=== PATIENT | female | born 1940 | race African-American/Black ===

== ENCOUNTER → 2016-09-13 | Outpatient (CLI) | payer MEDICARE ==
[2016-09-13 08:25] LABS: CH 27.2; CHCM 30.7; HCT 42.5 % (34.0-46.0); HGB 13.5 gm/dL (11.4-16.0); Hypochromasia Slight; MCH 28.3 pg (25.0-35.0); MCHC 31.8 g/dL (31.0-37.0); Mean Platelet Volume 7.7; RBC 4.78 m/uL (3.80-5.40); RDW 13.9 % (11.5-15.5); WBC 4.5 k/uL (3.8-10.6)
[2016-09-13 08:47] LABS: ALT 22 U/L (9-52); AST 27 U/L (14-36); Alkaline Phosphatase 92 U/L (38-126); Anion Gap 9 mmol/L; Blood Urea Nitrogen 18 mg/dL (7-17); Calcium 9.4 mg/dL (8.4-10.2); Carbon Dioxide 25 mmol/L (22-30); Chloride 107 mmol/L (98-107); Cholesterol 229 mg/dL (<200); Glucose 93 mg/dL (74-99); HDL Cholesterol 61 mg/dL (40-60); Non-African American GFR(MDRD) 59 (>60 ml/min/1.73 sqM); Potassium 3.8 mmol/L (3.5-5.1); Sodium 141 mmol/L (137-145); Total Bilirubin 0.6 mg/dL (0.2-1.3); Total Protein 7.3 g/dL (6.3-8.2); Triglycerides 80 mg/dL (<150)
[2016-09-13 08:53] LABS: Appearance,Urine Cloudy (Clear); Bacteria,Urine Rare /hpf; Bilirubin,Urine Negative (Negative); Glucose,Urine (UA) Negative (Negative); Ketones,Urine Negative (Negative); Leukocyte Esterase,Urine Moderate (Negative); Mucus,Urine Rare /hpf; Nitrite,Urine Negative (Negative); PH, Urine 5.5 (5.0-8.0); Particle Count 3563; Protein,Urine Negative (Negative); RBC,Urine 2 /hpf (0-5); Specific Gravity,Urine 1.015 (1.001-1.035); Squamous Epithelial Cell,Urine 4 /hpf (0-4); UA Billing (MACRO vs. MICRO) MICRO; Urobilinogen,Urine <2.0 mg/dL (<2.0); WBC,Urine 5 /hpf (0-5)
[2016-09-13 11:33] LABS: Hemoglobin A1C 5.8 % (4.2-6.1)
== END | disposition home or self-care (01) ==
LOC: LABWHC1 07:49
PROVIDERS: ATTEND Family Medicine
DX: Z00.01 Encounter for general adult medical examination with abnormal findings (principal)
CPT/HCPCS: 36415; 80053; 80061; 81001; 82306; 83036; 84443; 85027

== ENCOUNTER → 2016-09-13 | Outpatient (CLI) | payer MEDICARE ==
--- NOTE | 2016-09-14 07:59 | MM ---
Reason for exam: screening (asymptomatic). Last mammogram was performed 1 year and 8 months ago. History: Patient is postmenopausal and had first child at age 36. Excisional biopsy of the right breast, 1979. Took estrogen beginning at age 49. Physical Findings: A clinical breast exam by your physician is recommended on an annual basis and results should be correlated with mammographic findings. MG Screening Mammo w CAD Bilateral CC and MLO view(s) were taken. Prior study comparison: January 23, 2015, bilateral MG screening mammo w CAD. April 30, 2010, bilateral digital screening mammo w/CAD. There are scattered fibroglandular densities. Finding: There are stable grouped/clustered calcifications in the left breast. There is a chronic nodularity in the right breast. No significant changes in finding since January 23, 2015 and April 30, 2010. ASSESSMENT: Benign, BI-RAD 2 RECOMMENDATION: Routine screening mammogram of both breasts in 1 year.
== END | disposition home or self-care (01) ==
LOC: RADMAMWWP 07:23
PROVIDERS: ATTEND Family Medicine
DX: Z12.31 Encounter for screening mammogram for malignant neoplasm of breast (principal)

== ENCOUNTER → 2016-11-10 | Outpatient (CLI) | payer MEDICARE ==
--- NOTE | 2016-11-10 10:31 | US ---
EXAMINATION TYPE: US liver DATE OF EXAM: 11/10/2016 COMPARISON: 04/12/14 CLINICAL HISTORY: K76.89 DISEASE OF LIVER. EXAM MEASUREMENTS: Liver Length: 13.9 cm Gallbladder Wall: Surgically absent CBD: 0.6 cm Right Kidney: 9.2 x 4.5 x 4.5cm Large body habitus. Pancreas: partially obscured by bowel gas, portions visualized wnl Liver: Innumerable cysts, largest in left lobe measuring 5.3 x 4.3 x 6.0cm (previously measuring 5.0 x 4.1 x 5.4 cm), largest in right measuring 2.0 x2.4 x 2.7cm (previously measuring 2.2 x 1.6 x 2.5 c m), increased attenuation, decreased visualization of vessels suggestive of fatty infiltrate. Gallbladder: Surgically absent Evidence for sonographic Ortega's sign: No CBD: wnl Right Kidney: cyst measuring 3.1 x 2.6 x 2.6cm (previously measuring 2.3 cm). IMPRESSION: 1. Similar size of multiple hepatic cysts and a slightly enlarged solitary right renal cyst
== END | disposition home or self-care (01) ==
LOC: RADUSWWP 09:39
PROVIDERS: ATTEND Family Medicine
DX: K76.89 Other specified diseases of liver (principal); N28.1 Cyst of kidney, acquired
CPT/HCPCS: 76705

== ENCOUNTER → 2017-02-15 | Outpatient (CLI) | payer MEDICARE ==
[2017-02-15 10:50] LABS: Blood Urea Nitrogen 21 mg/dL (7-17); Non-African American GFR(MDRD) 58 (>60 ml/min/1.73 sqM)
--- NOTE | 2017-02-15 14:04 | CT ---
EXAMINATION TYPE: CT abdomen pelvis w con DATE OF EXAM: 02/15/2017 COMPARISON: 01/18/2013 HISTORY: 76-year-old female with pain, evaluate for diverticulitis TECHNIQUE: Contiguous axial scanning of the abdomen and pelvis following administration of 100 ml Omn ipaque 300 IV contrast. Delayed images through the kidneys and coronal/sagittal reconstructions perf ormed. CT DLP: 1524.80 mGycm Automated exposure control for dose reduction was used. FINDINGS: The heart is normal size without pericardial effusion. Tiny hiatal hernia. Lung bases clear without p leural effusion. Numerous hepatic cysts are redemonstrated, largest in the left hepatic lobe measuring 6.0 cm. This is increased in size from 4.5 cm in 2013. Other cysts have also fluctuated, some have decreased in size . Portal venous system is patent. Cholecystectomy clips are present. No biliary ductal dilatation. Adrenal glands, spleen, and pancreas appear within normal limits. A posterior right renal cyst is increased in size now measuring 3.2 cm versus 1.9 cm in 2013. There i s a new subcentimeter cortical hypodensity at the right upper pole and centrally in the left upper po le. A left lower pole renal cyst has increased in size now measuring 2.2 cm versus 5 mm, previously. Symmetric uptake and excretion of contrast from both kidneys. No dilated small bowel, free fluid, or free air. Normal appendix. Redemonstrated right lower quadrant anterior abdominal wall defect with herniated omental fat trackin g between the layers of the external and internal oblique measuring 2.5 cm thick, 7.4 cm wide, and 9. 2 cm craniocaudal. The abdominal wall defect itself measures 1.7 cm wide. This may be very minimally larger in the interval. Oral contrast has progressed to the mid sigmoid. There are a few short segments annular thickening an d narrowing which persist on the delayed kidney images, for example, axial image 43, 36, 31, 26, and 20 suspected to represent prominent areas of peristaltic contractions. Bladder is urine distended and has some mass effect displacing the distal sigmoid towards the left. U terus surgically absent. Neither ovary is visualized. Bones: Mild degenerative changes at the hips. Stable sclerotic bone island left acetabulum. Degenerat josiah changes lower lumbar spine with grade 1 anterolisthesis at L4-L5 and L5-S1. Hemangioma involving T9 vertebral body. There is asymmetric degenerative bony ankylosis of the L5-S1 facet joints. IMPRESSION: 1. MULTIPLE SHORT SEGMENTS OF ANNULAR THICKENING THROUGHOUT THE COLON PERSIST ON THE DELAYED KIDNEY I MAGES. AREAS OF SPASM OR PROMINENT PERISTALTIC CONTRACTIONS ARE SUGGESTED GIVEN THE MULTIPLICITY. COR RELATE WITH FINDINGS ON ROUTINE SCREENING COLONOSCOPY. 2. NO ACUTE INFLAMMATORY PROCESS IDENTIFIED IN THE ABDOMEN OR PELVIS. 3. NUMEROUS HEPATIC CYSTS WHICH SHOW FLUCTUATION IN SIZE, MANY OF WHICH HAVE INCREASED IN SIZE NOW ME ASURING UP TO 6.0 CM. 4. THERE ARE A FEW RENAL CYSTS WELL, A COUPLE SMALL CYSTS ARE NEW AND THE LARGEST HAS INCREASED IN SIZE NOW MEASURING UP TO 3.2 CM VERSUS 1.9 CM, PREVIOUSLY. 5. REDEMONSTRATED LARGE FAT-CONTAINING RIGHT LOWER QUADRANT ANTERIOR ABDOMINAL WALL HERNIA WHICH EXTE NDS BETWEEN THE PLANES OF THE EXTERNAL AND INTERNAL OBLIQUE.
== END | disposition home or self-care (01) ==
LOC: RADCTMAIN 10:05
PROVIDERS: ATTEND Surgery Plastic and Reconstructive Surgery
DX: K63.89 Other specified diseases of intestine (principal); K76.89 Other specified diseases of liver; N28.1 Cyst of kidney, acquired; K43.9 Ventral hernia without obstruction or gangrene
CPT/HCPCS: 82565; 84520; 74177; 36415; Q9967

== ENCOUNTER → 2017-04-04 | Outpatient (CLI) | payer MEDICARE | END | disposition home or self-care (01) | LOC: LABPAT 09:59 | PROVIDERS: ATTEND Surgery Plastic and Reconstructive Surgery | DX: Z01.818 Encounter for other preprocedural examination (principal); Z01.812 Encounter for preprocedural laboratory examination | CPT/HCPCS: 36415; 84132; 93005 ==

== ENCOUNTER 2017-04-08 05:58 | Day surgery (SDC) | payer MEDICARE ==
[2017-04-01 09:12] VITALS: BMI 29.2
[~2017-04-08 05:58] MED LIST: DEXAMETHASONE SOD PHOSPHATE 10 MG/ML 1 ML VIAL IV ONE; HEPARIN SODIUM,PORCINE 5,000 UNIT/ML 1 ML VIAL SQ ONE; LACTATED RINGERS 1,000 ML IV SCH; MORPHINE SULFATE 4 MG/ML SYRINGE IV PRN; ONDANSETRON 4 MG/2 ML VIAL IVP ONE; ceFAZolin IN SWFI 2 GM/20 ML SYRINGE IVP ONE
--- NOTE | 2017-04-08 06:16 | P.GSHP ---
History of Present Illness H&P Date: 04/08/17 CHIEF COMPLAINT: Ventral hernia. HISTORY OF PRESENT ILLNESS: The patient is a 76-year-old female who presents with a history of swelling along the lower abdomen. Findings were consistent with ventral hernia. Now she presents for further evaluation and management. PAST MEDICAL HISTORY: Please see list. PAST SURGICAL HISTORY: Please see list. MEDICATIONS: Please see list. ALLERGIES: Please see list. SOCIAL HISTORY: No illicit drug use FAMILY HISTORY: No reports of Crohn disease or ulcerative colitis. REVIEW OF ORGAN SYSTEMS: CONSTITUTIONAL: No reports of fevers or chills. GI: Denies any blood in stools or constipation. PHYSICAL EXAM: VITAL SIGNS: Stable GENERAL: Well-developed pleasant female in no acute distress. HEENT: No scleral icterus. Extraocular movements grossly intact. Moist buccal mucosa. NECK: Supple without lymphadenopathy. CHEST: Unlabored respirations. Equal bilateral excursions. CARDIOVASCULAR: Regular rate and rhythm. Distal 2+ pulses. ABDOMEN: Soft, nondistended. Palpable defect of the right lower abdomen. MUSCULOSKELETAL: No clubbing, cyanosis, or edema. ASSESSMENT: 1. Ventral hernia. PLAN: 1. Recommend proceeding with a robotic ventral hernia repair with mesh. 2. Benefits and risks of surgical intervention was discussed including possibility of open technique. 3. May need overnight observation. 4. DVT prophylaxis. Past Medical History Past Medical History: GERD/Reflux, Hyperlipidemia, Hypertension, Liver Disease Additional Past Medical History / Comment(s): cysts on liver, History of Any Multi-Drug Resistant Organisms: None Reported Past Surgical History: Cholecystectomy, Hernia Repair, Hysterectomy, Orthopedic Surgery Additional Past Surgical History / Comment(s): rotator cuff left shoulder, hernia repair-RIGHT INGUINAL HERNIA Past Anesthesia/Blood Transfusion Reactions: No Reported Reaction Smoking Status: Former smoker - Past Family History Mother Family Medical History: No Reported History Medications and Allergies Home Medications Medication Instructions Recorded Confirmed Type Irbesartan/Hydrochlorothiazide 1 each PO DAILY 08/08/14 04/01/17 History [Avalide 150-12.5 mg Tablet] amLODIPine [Norvasc] 10 mg PO DAILY 08/08/14 04/01/17 History Multivitamins, Thera [Multivitamin 1 tab PO DAILY 04/01/17 04/01/17 History (formulary)] Allergies Allergy/AdvReac Type Severity Reaction Status Date / Time aspirin Allergy Nausea & Verified 04/01/17 08:04 Vomiting atorvastatin [From Lipitor] Allergy MUSCLE PAIN Verified 04/01/17 08:06
[2017-04-08 06:45] LABS: HCT 39.8 % (34.0-46.0); HGB 12.4 gm/dL (11.4-16.0); Hypochromasia Slight; MCH 27.1 pg (25.0-35.0); MCHC 31.1 g/dL (31.0-37.0); MCV 87.3 fL (80.0-100.0); Mean Platelet Volume 8.6; Platelet Count 171 k/uL (150-450); RBC 4.56 m/uL (3.80-5.40); RDW 14.4 % (11.5-15.5); WBC 4.3 k/uL (3.8-10.6)
[2017-04-08] MEDS ORDERED: LIDOCAINE 1% 20 ML VIAL (10MG/ML) FOR IV START INTRADERMA ONE (06:45)
[2017-04-08 07:01] LABS: ALT 38 U/L (9-52); AST 23 U/L (14-36); Albumin 3.6 g/dL (3.5-5.0); Alkaline Phosphatase 91 U/L (38-126); Anion Gap 7 mmol/L; Blood Urea Nitrogen 22 mg/dL (7-17); Calcium 9.9 mg/dL (8.4-10.2); Carbon Dioxide 28 mmol/L (22-30); Chloride 107 mmol/L (98-107); Glucose 105 mg/dL (74-99); Potassium 3.4 mmol/L (3.5-5.1); Sodium 142 mmol/L (137-145); Total Bilirubin 0.5 mg/dL (0.2-1.3); Total Protein 6.6 g/dL (6.3-8.2)
[2017-04-08] MEDS ORDERED: GLYCOPYRROLATE 0.2 MG/ML 2 ML VIAL ONE (07:29)
[2017-04-08] MEDS ORDERED: SUCCINYLCHOLINE CHLORIDE 100 MG/5 ML SYR IV ONE (07:29)
[2017-04-08] MEDS ORDERED: NEOSTIGMINE 1 MG/ML 10 ML VIAL ONE (07:29)
[2017-04-08] MEDS ORDERED: fentaNYL (PF) 50 MCG/ML 2 ML AMP ONE (07:29)
[2017-04-08] MEDS ORDERED: MIDAZOLAM 2 MG/2 ML VIAL ONE (07:29)
[2017-04-08] MEDS ORDERED: PROPOFOL 10 MG/ML 20 ML VIAL IV ONE (07:29)
[2017-04-08] MEDS ORDERED: LIDOCAINE 2%-EPI 1:100,000 20 ML VIAL ONE (07:29)
[2017-04-08] MEDS ORDERED: LIDOCAINE 1% INJ 10MG/ML (20 ML MDV) ONE (07:29)
[2017-04-08] MEDS ORDERED: ROCURONIUM BROMIDE 10 MG/ML 10 ML VIAL IV ONE (07:29)
[2017-04-08] MEDS ORDERED: ROPIVACAINE 5 MG/ML 30 ML VIAL ONE (07:29)
[2017-04-08] MEDS ORDERED: POTASSIUM CHLORIDE 20 MEQ in SODIUM CHLORIDE 0.9% 100 ML IVPB STA (07:46)
[2017-04-08] MEDS ORDERED: BUPIVACAINE (PF) 0.25% 30 ML VIAL SQ ONE (07:56)
[2017-04-08] MEDS ORDERED: LACTATED RINGERS 1,000 ML IV ONE (09:42)
[2017-04-08 10:18] VITALS: TEMP 98
[2017-04-08] MEDS: HYDROmorphone 0.5 MG/0.5 ML SYRINGE IVP PRN ×3 (10:22→10:35)
[2017-04-08 10:32] VITALS: RESP 16
--- NOTE | 2017-04-08 10:39 | P.PCN ---
Date of Procedure: 04/08/17 Preoperative Diagnosis: Right lower abdominal swelling, right lower abdominal pain, previous history of right ventral hernia repair Postoperative Diagnosis: Recurrent right ventral/spigaliean hernia incarceration, abdominal wall lipoma over 6 cm Procedure(s) Performed: Robotic-assisted repair of right lower quadrant incarcerated spigelian hernia, removal of 6 cm intra-abdominal and abdominal wall lipoma 6 cm Anesthesia: GETA, local Surgeon: Nasra Pepper Estimated Blood Loss (ml): 5 Pathology: other (Abdominal wall lipoma) Condition: stable Disposition: same day Operative Findings: Abdominal wall recurrent ventral hernia involving the right lower quadrant, removal of abdominal wall lipoma 6 cm involving the fascia
--- NOTE | 2017-04-08 11:25 | P.ONQ ---
Anesthesiology Proc Note - PNB - Peripheral Nerve Block Performed Left Other (see comment) Single Time Out Performed: Yes ([id number]) Procedure Start Time: 10:41 (Bilateral Rectus Abdominis Sheath Block) Procedure Stop Time: 10:58 Indication: Acute Post-Operative Pain, Requested by physician Sedation Type: Sedate with meaningful contact maintained Preparation: Sterile Prep Position: Supine Catheter: None Needle Types: Facet Needle Size: 50mm (2") Needle Gauge: 21 Technique: Ultrasound Injectate: 2.0% Lidocaine (see comment for volume) (20 mls Ropivacaine + 20 mls Lidocaine) Blood Aspirated: No Pain Paresthesia on Injection Noted: No Resistance on Injection: Normal Events: Uneventful and Well Tolerated
[2017-04-08] MEDS ORDERED: HYDROcodone/APAP 5-325MG 1 EACH TAB PO ONE (14:59)
[2017-04-08 16:07] VITALS: BP 130/72; PULSE 91
--- NOTE | 2017-05-15 21:53 | P.OP ---
Date of Procedure: 04/08/17 Description of Procedure: SURGEON: NELI PEPPER MD ASSISTANTS: 1. DEEJAY SCHULTZ PREOPERATIVE DIAGNOSES: 1. Right lower quadrant abdominal pain. 2. Previous history of right ventral incisional hernia repair. 3. Hypertensive heart disease without cardiomyopathy. 4. Gastroesophageal reflux disease. 5. Hyperlipidemia. 6. Right lower abdominal swelling. POSTOPERATIVE DIAGNOSES: 1. Right lower quadrant abdominal pain. 2. Previous history of right inguinal hernia repair. 3. Hypertensive heart disease without cardiomyopathy. 4. Gastroesophageal reflux disease. 5. Hyperlipidemia. 6. Abdominal wall intramuscular/fascial lipoma, 6 cm 7. Recurrent right lower quadrant ventral/spigaliean hernia, incarcerated. OPERATION: 1. Robotic-assisted da Anna Xi laparoscopic reduction and repair of right lower quadrant incarcerated spigelian hernia without mesh. 2. Robotic-assisted da Anna Xi laparoscopic excision removal of 6 cm intra- muscular abdominal wall lipoma 6 cm ANESTHESIA: General with local anesthetic ESTIMATED BLOOD LOSS: 5 mL. SPECIMENS REMOVED: other (Abdominal wall lipoma) COMPLICATIONS: None. Condition: stable Disposition: same day INDICATIONS: The patient is a 76-year-old female who presents with history of right groin swelling. Now presents for definitive surgical intervention. Laparoscopic versus open and robotic approaches were discussed. Benefits and risks including bleeding, infection, and injury to the vas deferens as well as sterility and chronic groin pain were reviewed. Placement of mesh was also described. Informed consent was obtained. DESCRIPTION: In the preoperative area, the patient was marked with indelible marker along the right lower abdomen. The patient was brought to the operating room and initially laid in supine position. The abdomen had been prepped and draped in standard sterile fashion. Ioban draping was also placed. Alonso catheter was placed. Prior to incision, a timeout protocol was confirmed with surgical team regarding patient's name including procedures to be performed and location along the right lower abdomen. Initial positioning for the robotic assisted ports were selected whereby 20 cm superior to the target anatomy, 0 degree 5 mm laparoscopic trocar entry was performed at the left upper quadrant. The abdomen was insufflated to 15 mmHg which she had tolerated well. Additionally, 3 cm defect along the right lower abdomen was found. Next, along the epigastrium, 8 mm robot trocar was placed. An 8-mm robotic trocar was placed under direct visualization at the right upper quadrant. The 5 mm port was exchanged for an 8 mm trocar. All trocars were positioned 8 to 10-cm apart from each other. The The [employer] XI robot was primed, draped, prepared for docking along the left side of the patient. I then went to the [employer] Xi console. The study assistant was at bedside for exchange of the robot arms and equipment. At the right lower abdominal wall, a 3 cm spigelian hernia incarcerated with a lipoma was identified. The hernia sac was evaginated whereby the peritoneum was scored using Endo scissors with cautery. Within the depth of the hernia sac, a 6 cm intramuscular abdominal wall lipoma was resected. Once completely reduced into the abdominal cavity, the peritoneal sac of the hernia was stripped and a lipoma of the right lower quadrant was reduced. The sac was resected and then passed off for further pathological analysis. The size of the hernia defect was 3 cm with intraoperative films obtained. Using 0-VLOC, the muscular and fascial defect was closed and imbricated at least in 2 layers. The peritoneum was also reapproximated in a running suture using 2-0 VLOC. The entire defect was well reapproximated and mesh placement was avoided. The robot was undocked from the patient's bedside. I then rescrubbed into the case. The 6-cm abdominal wall lipoma was extracted using an Endo Catch bag of the left upper quadrant. The fascia was widened to allow removal of the specimen. The fascial defect was reapproximated using 0-Vicryl and a Manohar Jazlyn along the left upper quadrant Insufflation was released from the abdominal cavity and all instruments were removed from the abdominal cavity. The rest of incisions were reapproximated using 4-0 Monocryl in a running subcuticular fashion. Local anesthetic was placed along the incision. Incisions were cleansed using dilute hydrogen peroxide. Dermabond was applied to the skin. At the end of the procedure, the needle, sponge and instrument counts had been verified correct by the graphic arts technician. The patient had tolerated the procedure well and was taken to the postanesthesia care unit in stable condition. FINDINGS: 1. Abdominal wall recurrent ventral hernia involving the right lower quadrant 2. Removal of abdominal wall lipoma 6 cm involving the fascia Plan - Discharge Summary New Discharge Prescriptions: New HYDROcodone/APAP 5-325MG [Pisek 5-325] 1 tab PO Q6HR PRN #20 tab PRN Reason: Pain Continue amLODIPine [Norvasc] 10 mg PO DAILY Irbesartan/Hydrochlorothiazide [Avalide 150-12.5 mg Tablet] 1 tab PO DAILY No Action Multivit-Min/FA/Lycopen/Lutein [Centrum Silver Tablet] 1 tab PO DAILY Discharge Medication List Irbesartan/Hydrochlorothiazide [Avalide 150-12.5 mg Tablet] 1 tab PO DAILY 08/08 [History] amLODIPine [Norvasc] 10 mg PO DAILY 08/08/14 [History] HYDROcodone/APAP 5-325MG [Pisek 5-325] 1 tab PO Q6HR PRN #20 tab 04/08/17 [Rx] Multivit-Min/FA/Lycopen/Lutein [Centrum Silver Tablet] 1 tab PO DAILY 04/21/17 [ History] Follow up Appointment(s)/Referral(s): Neli Pepper MD [STAFF PHYSICIAN] - 04/19/17 3:00 pm Patient Instructions/Handouts: *Surgery [facility] - (Anesthesia) Discharge Instructions Outpatient Surgery, Laparoscopic Herniorrhaphy (DC) Activity/Diet/Wound Care/Special Instructions: May shower. No lifting over 4 pounds in 4 weeks. No bath tub soaks. Discharge Disposition: HOME SELF-CARE
== END 2017-04-08 16:55 | disposition home or self-care (01) ==
LOC: OR 05:58
PROVIDERS: ATTEND Surgery Plastic and Reconstructive Surgery
DX: K43.0 Incisional hernia with obstruction, without gangrene (principal); D17.1 Benign lipomatous neoplasm of skin and subcutaneous tissue of trunk; K21.9 Gastro-esophageal reflux disease without esophagitis; E78.5 Hyperlipidemia, unspecified; I10 Essential (primary) hypertension; K76.89 Other specified diseases of liver; Z87.891 Personal history of nicotine dependence; Z88.6 Allergy status to analgesic agent; Z79.899 Other long term (current) drug therapy; Z88.8 Allergy status to other drugs, medicaments and biological substances
CPT/HCPCS: 49653 ×2; 88304; 80053; 85027; 22903; C1781; J2250; J1644; J1100; J2710; J0690; J2405; J2001; J3010; J2795; J0330; J2704; J1170

== ENCOUNTER 2017-04-21 10:25 | Emergency (ER) | payer MEDICARE ==
[2017-04-21] MEDS ORDERED: SODIUM CHLORIDE 0.9% 1,000 ML IV STA (11:04)
--- NOTE | 2017-04-21 11:08 | ED ---
General Adult HPI - General Chief complaint: Weakness Stated complaint: Weakness Time Seen by Provider: 04/21/17 10:30 Source: patient, family, RN notes reviewed Mode of arrival: wheelchair Limitations: no limitations - History of Present Illness Initial comments: This is a 76-year-old female who presents emergency department after having surgery 2 weeks ago to remove a lipoma. Patient states her abdomen has been slowly improving. However she comes in today because she's been feeling weaker and lightheaded and has lost her appetite over the last 2 days. Patient denies any fever chills or cough. Patient denies any nausea vomiting or diarrhea. Patient denies any headache patient denies numbness or focal weakness. Patient denies any dysuria hematuria urinary frequency. Patient denies any recent injury or trauma. - Related Data Home Medications Medication Instructions Recorded Confirmed Irbesartan/Hydrochlorothiazide 1 tab PO DAILY 08/08/14 04/21/17 [Avalide 150-12.5 mg Tablet] amLODIPine [Norvasc] 10 mg PO DAILY 08/08/14 04/21/17 Multivit-Min/FA/Lycopen/Lutein 1 tab PO DAILY 04/21/17 04/21/17 [Centrum Silver Tablet] Previous Rx's Medication Instructions Recorded HYDROcodone/APAP 5-325MG [[place] 1 tab PO Q6HR PRN #20 tab 04/08/17 5-325] Allergies Allergy/AdvReac Type Severity Reaction Status Date / Time aspirin AdvReac Nausea & Verified 04/21/17 11:17 Vomiting atorvastatin [From Lipitor] AdvReac MUSCLE PAIN Verified 04/21/17 11:17 Review of Systems ROS Statement: Those systems with pertinent positive or pertinent negative responses have been documented in the HPI. ROS Other: All systems not noted in ROS Statement are negative. Past Medical History Past Medical History: GERD/Reflux, Hyperlipidemia, Hypertension, Liver Disease Additional Past Medical History / Comment(s): cysts on liver, History of Any Multi-Drug Resistant Organisms: None Reported Past Surgical History: Cholecystectomy, Hernia Repair, Hysterectomy, Orthopedic Surgery Additional Past Surgical History / Comment(s): rotator cuff left shoulder, hernia repair-RIGHT INGUINAL HERNIA , lypoma removal Past Anesthesia/Blood Transfusion Reactions: No Reported Reaction Past Psychological History: No Psychological Hx Reported Smoking Status: Former smoker Past Alcohol Use History: None Reported Past Drug Use History: None Reported - Past Family History Mother Family Medical History: No Reported History General Exam - General Exam Comments Initial Comments: GENERAL: Patient is well-developed and well-nourished. Patient is nontoxic and well- hydrated and is in no acute distress. ENT: Neck is soft and supple. No significant lymphadenopathy is noted. Oropharynx is clear. Moist mucous membranes. Neck has full range of motion without eliciting any pain. EYES: The sclera were anicteric and conjunctiva were pink and moist. Extraocular movements were intact and pupils were equal round and reactive to light. Eyelids were unremarkable. PULMONARY: Unlabored respirations. Good breath sounds bilaterally. No audible rales rhonchi or wheezing was noted. CARDIOVASCULAR: There is a regular rate and rhythm without any murmurs gallops or rubs. ABDOMEN: Left upper quadrant is tender at one of the incision sites patient states this is been slowly improving but is still quite tender to touch. No palpable organomegaly was noted. There is no palpable pulsatile mass. SKIN: Skin is clear with no lesions or rashes and otherwise unremarkable. NEUROLOGIC: Patient is alert and oriented x3. Cranial nerves II through XII are grossly intact. Motor and sensory are also intact. Normal speech, volume and content. Symmetrical smile. MUSCULOSKELETAL: Normal extremities with adequate strength and full range of motion. No lower extremity swelling or edema. No calf tenderness. LYMPHATICS: No significant lymphadenopathy is noted PSYCHIATRIC: Normal psychiatric evaluation. Normal interpersonal interactions appears functionally intact in deals appropriately with others. No signs of depression. No signs of anxiety. Limitations: no limitations Course Vital Signs 04/21/17 04/21/17 10:30 12:28 Temperature 98 F Pulse Rate 97 87 Respiratory 17 18 Rate Blood Pressure 132/58 147/79 O2 Sat by Pulse 100 100 Oximetry Medical Decision Making - Medical Decision Making EKG shows normal sinus rhythm at 81 bpm [place] interval is 148 QRS is 70 QT interval 382 QTC is 443. Patient's EKG shows no ST segment elevation or depression or T wave abnormalities are noted. Chest x-ray shows no acute abnormality. Patient's opacification the posterior aspect of the lateral chest x-ray is believed to be a tortuous aorta when I confirmed with the radiologist. - Lab Data Result diagrams: 04/21/17 11:25 04/21/17 11:25 Lab Results 04/21/17 04/21/17 04/21/17 Range/Units 11:11 11:25 11:25 WBC 4.8 (3.8-10.6) k/uL RBC 4.92 (3.80-5.40) m/uL Hgb 13.6 (11.4-16.0) gm/dL Hct 41.7 (34.0-46.0) % MCV 84.8 (80.0-100.0) fL MCH 27.6 (25.0-35.0) pg MCHC 32.6 (31.0-37.0) g/dL RDW 13.1 (11.5-15.5) % Plt Count 234 (150-450) k/uL Neutrophils % 56 % Lymphocytes % 36 % Monocytes % 6 % Eosinophils % 1 % Basophils % 1 % Neutrophils # 2.7 (1.3-7.7) k/uL Lymphocytes # 1.7 (1.0-4.8) k/uL Monocytes # 0.3 (0-1.0) k/uL Eosinophils # 0.0 (0-0.7) k/uL Basophils # 0.0 (0-0.2) k/uL PT (9.0-12.0) sec INR (<1.2) APTT (22.0-30.0) sec Sodium (137-145) mmol/L Potassium (3.5-5.1) mmol/L Chloride (98-107) mmol/L Carbon Dioxide (22-30) mmol/L Anion Gap mmol/L BUN (7-17) mg/dL Creatinine (0.52-1.04) mg/dL Est GFR (MDRD) Af Amer (>60 ml/min/1.73 sqM) Est GFR (MDRD) Non-Af (>60 ml/min/1.73 sqM) Glucose (74-99) mg/dL Plasma Lactic Acid Paolo (0.7-2.0) mmol/L Calcium (8.4-10.2) mg/dL Total Bilirubin (0.2-1.3) mg/dL AST (14-36) U/L ALT (9-52) U/L Alkaline Phosphatase (38-126) U/L Total Creatine Kinase 49 (30-135) U/L CK-MB (CK-2) 0.4 (0.0-2.4) ng/mL CK-MB (CK-2) Rel Index 0.8 Troponin I <0.012 (0.000-0.034) ng/mL Total Protein (6.3-8.2) g/dL Albumin (3.5-5.0) g/dL Urine Color Light Yellow Urine Appearance Clear (Clear) Urine pH 5.5 (5.0-8.0) Ur Specific Horatio 1.006 (1.001-1.035) Urine Protein Negative (Negative) Urine Glucose (UA) Negative (Negative) Urine Ketones Negative (Negative) Urine Blood Negative (Negative) Urine Nitrite Negative (Negative) Urine Bilirubin Negative (Negative) Urine Urobilinogen <2.0 (<2.0) mg/dL Ur Leukocyte Esterase Small H (Negative) Urine WBC 1 (0-5) /hpf Ur Squamous Epith Cells 1 (0-4) /hpf Urine Bacteria Occasional H (None) /hpf Hyaline Casts 3 H (0-2) /lpf Urine Mucus Rare H (None) /hpf 04/21/17 04/21/17 04/21/17 Range/Units 11:25 11:25 11:25 WBC (3.8-10.6) k/uL RBC (3.80-5.40) m/uL Hgb (11.4-16.0) gm/dL Hct (34.0-46.0) % MCV (80.0-100.0) fL MCH (25.0-35.0) pg MCHC (31.0-37.0) g/dL RDW (11.5-15.5) % Plt Count (150-450) k/uL Neutrophils % % Lymphocytes % % Monocytes % % Eosinophils % % Basophils % % Neutrophils # (1.3-7.7) k/uL Lymphocytes # (1.0-4.8) k/uL Monocytes # (0-1.0) k/uL Eosinophils # (0-0.7) k/uL Basophils # (0-0.2) k/uL PT 9.9 (9.0-12.0) sec INR 1.0 (<1.2) APTT 22.0 (22.0-30.0) sec Sodium 140 (137-145) mmol/L Potassium 3.9 (3.5-5.1) mmol/L Chloride 103 (98-107) mmol/L Carbon Dioxide 27 (22-30) mmol/L Anion Gap 10 mmol/L BUN 17 (7-17) mg/dL Creatinine 0.80 (0.52-1.04) mg/dL Est GFR (MDRD) Af Amer >60 (>60 ml/min/1.73 sqM) Est GFR (MDRD) Non-Af >60 (>60 ml/min/1.73 sqM) Glucose 100 H (74-99) mg/dL Plasma Lactic Acid Paolo 1.6 (0.7-2.0) mmol/L Calcium 10.3 H (8.4-10.2) mg/dL Total Bilirubin 0.6 (0.2-1.3) mg/dL AST 27 (14-36) U/L ALT 21 (9-52) U/L Alkaline Phosphatase 100 (38-126) U/L Total Creatine Kinase (30-135) U/L CK-MB (CK-2) (0.0-2.4) ng/mL CK-MB (CK-2) Rel Index Troponin I (0.000-0.034) ng/mL Total Protein 7.9 (6.3-8.2) g/dL Albumin 4.3 (3.5-5.0) g/dL Urine Color Urine Appearance (Clear) Urine pH (5.0-8.0) Ur Specific Horatio (1.001-1.035) Urine Protein (Negative) Urine Glucose (UA) (Negative) Urine Ketones (Negative) Urine Blood (Negative) Urine Nitrite (Negative) Urine Bilirubin (Negative) Urine Urobilinogen (<2.0) mg/dL Ur Leukocyte Esterase (Negative) Urine WBC (0-5) /hpf Ur Squamous Epith Cells (0-4) /hpf Urine Bacteria (None) /hpf Hyaline Casts (0-2) /lpf Urine Mucus (None) /hpf Disposition Clinical Impression: Weakness Disposition: HOME SELF-CARE Condition: Good Instructions: Weakness (ED) Referrals: [place] DO [Primary Care Provider] - 1-2 days Time of Disposition: 12:47
[2017-04-21 11:42] LABS: Basophils % (A) 1 %; Eosinophils % (A) 1 %; HCT 41.7 % (34.0-46.0); HGB 13.6 gm/dL (11.4-16.0); Lymphocytes # (A) 1.7 k/uL (1.0-4.8); Lymphocytes % (A) 36 %; MCH 27.6 pg (25.0-35.0); MCHC 32.6 g/dL (31.0-37.0); MCV 84.8 fL (80.0-100.0); Mean Platelet Volume 7.4; Monocytes # (A) 0.3 k/uL (0-1.0); Monocytes % (A) 6 %; Neutrophils # (A) 2.7 k/uL (1.3-7.7); Neutrophils % (A) 56 %; Platelet Count 234 k/uL (150-450); RBC 4.92 m/uL (3.80-5.40); RDW 13.1 % (11.5-15.5); WBC 4.8 k/uL (3.8-10.6)
[2017-04-21 11:52] LABS: Appearance,Urine Clear (Clear); Bacteria,Urine Occasional /hpf; Bilirubin,Urine Negative (Negative); Blood,Urine Negative (Negative); Color,Urine Light Yellow; Glucose,Urine (UA) Negative (Negative); Hyaline Casts,Urine 3 /lpf (0-2); Ketones,Urine Negative (Negative); Leukocyte Esterase,Urine Small (Negative); Mucus,Urine Rare /hpf; Nitrite,Urine Negative (Negative); PH, Urine 5.5 (5.0-8.0); Protein,Urine Negative (Negative); Specific Gravity,Urine 1.006 (1.001-1.035); Squamous Epithelial Cell,Urine 1 /hpf (0-4); Urobilinogen,Urine <2.0 mg/dL (<2.0); WBC,Urine 1 /hpf (0-5)
[2017-04-21 11:54] LABS: ALT 21 U/L (9-52); AST 27 U/L (14-36); Albumin 4.3 g/dL (3.5-5.0); Alkaline Phosphatase 100 U/L (38-126); Anion Gap 10 mmol/L; Blood Urea Nitrogen 17 mg/dL (7-17); Calcium 10.3 mg/dL (8.4-10.2); Carbon Dioxide 27 mmol/L (22-30); Chloride 103 mmol/L (98-107); Glucose 100 mg/dL (74-99); Potassium 3.9 mmol/L (3.5-5.1); Sodium 140 mmol/L (137-145); Total Bilirubin 0.6 mg/dL (0.2-1.3); Total Protein 7.9 g/dL (6.3-8.2)
--- NOTE | 2017-04-21 11:56 | XR ---
EXAMINATION TYPE: XR chest 2V DATE OF EXAM: 04/21/2017 COMPARISON: None HISTORY: 76-year-old female with weakness, lightheaded, shortness of breath TECHNIQUE: PA and lateral views FINDINGS: Heart normal size. Tortuous lower descending thoracic aorta. Otherwise, aorta and pulmonary vasculatu re within normal limits. Strandy areas of atelectasis in the lower lungs. No consolidation or pleural effusion. IMPRESSION: Strandy areas of atelectasis. No acute cardiopulmonary process.
[2017-04-21 12:03] LABS: Creatine Kinase 49 U/L (30-135)
[2017-04-21 12:16] LABS: Creatine Kinase MB 0.4 ng/mL (0.0-2.4); Troponin I <0.012 ng/mL (0.000-0.034)
[2017-04-21 12:19] LABS: Prothrombin Time 9.9 sec (9.0-12.0)
[2017-04-21 13:08] VITALS: BP 150/68; PULSE 89; RESP 20; TEMP 98.2
== END 2017-04-21 13:00 | disposition home or self-care (01) ==
LOC: EC 10:25
DX: R53.1 Weakness (principal); R91.8 Other nonspecific abnormal finding of lung field; R42 Dizziness and giddiness; R63.0 Anorexia; I10 Essential (primary) hypertension; Z87.891 Personal history of nicotine dependence; Z79.899 Other long term (current) drug therapy; Z88.6 Allergy status to analgesic agent; Z88.8 Allergy status to other drugs, medicaments and biological substances; Z98.890 Other specified postprocedural states
CPT/HCPCS: 36415; 71046; 80053; 81001; 82550; 82553; 83605; 84484; 85025; 85610; 85730; 93005; 99285

== ENCOUNTER 2017-04-25 08:58 | Emergency (ER) | payer MEDICARE ==
[2017-04-25 09:13] VITALS: TEMP 98.4
--- NOTE | 2017-04-25 09:47 | ED ---
General Adult HPI - General Chief complaint: Recheck/Abnormal Lab/Rx Stated complaint: Open insicion Time Seen by Provider: 04/25/17 09:31 Source: patient, RN notes reviewed, old records reviewed Mode of arrival: ambulatory Limitations: no limitations - History of Present Illness Initial comments: Patient is a 76-year-old female who presents emergency room today with chief complaint of wound recheck. Patient does admit that she had surgery on April [address] Pepper for hernia repair. Was a laparoscopic procedure. States that the left upper incision noticed that she was using some peroxide in the corner as just small amount. Patient does admit that she called the office and was told that she could have an appointment tomorrow but sent him here to the emergency room to have it checked. She denies any drainage or discharge. Denies any change in pain. Denies any redness. Denies any other complaints or symptoms. Patient denies any recent fever, chills, shortness of breath, chest pain, back pain, nausea or vomiting, numbness or tingling headaches or visual changes, or any other complaints. - Related Data Home Medications Medication Instructions Recorded Confirmed Irbesartan/Hydrochlorothiazide 1 tab PO DAILY 08/08/14 04/25/17 [Avalide 150-12.5 mg Tablet] amLODIPine [Norvasc] 10 mg PO DAILY 08/08/14 04/25/17 Multivit-Min/FA/Lycopen/Lutein 1 tab PO DAILY 04/21/17 04/25/17 [Centrum Silver Tablet] Previous Rx's Medication Instructions Recorded HYDROcodone/APAP 5-325MG [[place] 1 tab PO Q6HR PRN #20 tab 04/08/17 5-325] Allergies Allergy/AdvReac Type Severity Reaction Status Date / Time aspirin AdvReac Nausea & Verified 04/25/17 09:28 Vomiting atorvastatin [From Lipitor] AdvReac MUSCLE PAIN Verified 04/25/17 09:28 Review of Systems ROS Statement: Those systems with pertinent positive or pertinent negative responses have been documented in the HPI. ROS Other: All systems not noted in ROS Statement are negative. Past Medical History Past Medical History: GERD/Reflux, Hyperlipidemia, Hypertension, Liver Disease Additional Past Medical History / Comment(s): cysts on liver, History of Any Multi-Drug Resistant Organisms: None Reported Past Surgical History: Cholecystectomy, Hernia Repair, Hysterectomy, Orthopedic Surgery Additional Past Surgical History / Comment(s): rotator cuff left shoulder, hernia repair-RIGHT INGUINAL HERNIA , lypoma removal Past Anesthesia/Blood Transfusion Reactions: No Reported Reaction Past Psychological History: No Psychological Hx Reported Smoking Status: Former smoker Past Alcohol Use History: None Reported Past Drug Use History: None Reported - Past Family History Mother Family Medical History: No Reported History General Exam - General Exam Comments Initial Comments: General: The patient is awake and alert, in no distress, and does not appear acutely ill. Eye: Pupils are equal, round and reactive to light, extra-ocular movements are intact. No nystagmus. There is normal conjunctiva bilaterally. No signs of icterus. Ears, nose, mouth and throat: There are moist mucous membranes and no oral lesions. Neck: The neck is supple, there is no tenderness or JVD. Cardiovascular: There is a regular rate and rhythm. No murmur, rub or gallop is appreciated. Respiratory: Lungs are clear to auscultation, respirations are non-labored, breath sounds are equal. No wheezes, stridor, rales, or rhonchi. Gastrointestinal/skin: Patient's incision sites are healing well. Left upper quadrant incision the lateral corner has dehisced a very small amount. There is no redness. No specific tenderness around the area. No drainage. No signs of infection. Musculoskeletal: Normal ROM, no tenderness. Strength 5/5. Sensation intact. Pulses equal bilaterally 2+. Neurological: A&O x 3. CN II-XII intact, There are no obvious motor or sensory deficits. Coordination appears grossly intact. Speech is normal. Psychiatric: Cooperative, appropriate mood & affect, normal judgment. Limitations: no limitations Course Vital Signs 04/25/17 09:10 Temperature 98.4 F Pulse Rate 90 Respiratory 20 Rate Blood Pressure 119/91 O2 Sat by Pulse 98 Oximetry Medical Decision Making - Medical Decision Making Patient examined here in emergency room no signs of distress. Abdomen soft on palpation. There is a very small dehiscence of the left upper quadrant wound. Suture placed by nursing staff in the emergency room. Patient is advised to follow-up with her doctor tomorrow. Advised to watch for any signs of infection return here to the emergency room. Advised to hold peroxide until following up with the surgeon. Disposition Clinical Impression: Postop check Disposition: HOME SELF-CARE Condition: Good Instructions: Steristrips (ED) Additional Instructions: Please follow-up with the surgeon tomorrow as discussed. Please allow Steri- Strips to fall off on its own over the next 3-5 days. Please hold peroxide at this time. Please return to emergency room for any signs of infection as discussed. Referrals: [place] DO [Primary Care Provider] - 1-2 days Time of Disposition: 09:47
[2017-04-25 10:18] VITALS: BP 129/80; PULSE 77; RESP 18
== END 2017-04-25 10:18 | disposition home or self-care (01) ==
LOC: EC 08:58
DX: Z09 Encounter for follow-up examination after completed treatment for conditions other than malignant neoplasm (principal); I10 Essential (primary) hypertension; Z87.891 Personal history of nicotine dependence; Z88.6 Allergy status to analgesic agent; Z88.8 Allergy status to other drugs, medicaments and biological substances; Z79.899 Other long term (current) drug therapy
CPT/HCPCS: 99283

== ENCOUNTER → 2017-09-29 | Outpatient (CLI) | payer MEDICARE ==
--- NOTE | 2017-09-29 10:42 | CT ---
EXAMINATION TYPE: CT soft tissue neck w con DATE OF EXAM: 09/29/2017 HISTORY: Left submandibular swelling COMPARISON: NONE CT DLP: 1077 mGycm. Automated Exposure Control for Dose Reduction was Utilized. TECHNIQUE: CT scan of the neck is performed with IV Contrast, patient injected with 100 mL of Isovue 300, axial images are obtained, coronal and sagittal reformatted images are reviewed. FINDINGS: Airway: There is heterogeneity of the left inferior margin of the palatine tonsil with a focal centra l hypoattenuated region and peripheral hyperattenuated region on series 5 image 35 and series 6 image 42 measuring 0.8 x 0.9 x 1.1 cm. Tonsillar are also seen bilaterally. True and false vocal cords are unremarkable. Supraglottic and infraglottic airway is maintained. Parotid/submandibular glands: Symmetric and unremarkable without significant atrophy. Carotid/Vascular Structures: Incidental note of a bovine aortic arch, normal variant. Osseous Structures: Mild multilevel degenerative changes of the cervical spine are present. Paranasal sinuses are well aerated. Mastoid air cells are also well aerated and unremarkable. Other: The thyroid gland is multinodular, heterogenous and enlarged with substernal extension suggest josiah of a thyroid goiter. Prior fine-needle aspiration performed 2014. Minimal atelectasis is seen at the lung apices. Visualized portion of the ascending thoracic aorta is upper limits of normal measuri ng 3.7 cm. No hemodynamically significant stenosis within the common carotids or visualized internal carotids. Deep to the BB marker on coronal series 6 image 33 there is a morphologically normal-appearing subman dibular lymph node that is within normal limits of size measuring 7 mm in short axis. No enlarged lym ph nodes are seen within the neck. IMPRESSION: 1. There is a 1.1 cm left inferior tonsillar lesion for which direct visualization is recommended. 2. Corresponding to the BB marker there is a nonenlarged, morphologically normal appearing subsegment al left lymph node. No evidence of adenopathy within the neck. 3. Findings most compatible with a multinodular goiter, however surveillance ultrasound could be perf ormed for comparison to priors.
== END ==
LOC: RADCTMAIN 07:24
PROVIDERS: ATTEND Otolaryngology
DX: J35.8 Other chronic diseases of tonsils and adenoids (principal)
CPT/HCPCS: 82565; 84520; 70491; 36415; Q9967

== ENCOUNTER → 2017-11-03 | Outpatient (CLI) | payer MEDICARE ==
[2017-11-03 11:27] LABS: ALT 28 U/L (9-52); AST 24 U/L (14-36); Cholesterol 232 mg/dL (<200); HDL Cholesterol 57 mg/dL (40-60); LDL Cholesterol,Calculated 163 mg/dL (0-99); Triglycerides 60 mg/dL (<150)
== END | disposition home or self-care (01) ==
LOC: LABWHC1 09:52
PROVIDERS: ATTEND Internal Medicine Cardiovascular Disease
DX: I10 Essential (primary) hypertension (principal); E78.00 Pure hypercholesterolemia, unspecified
CPT/HCPCS: 36415; 80061; 84450; 84460

== ENCOUNTER → 2018-04-11 | Outpatient (CLI) | payer MEDICARE ==
--- NOTE | 2018-04-17 14:40 | MM ---
Reason for exam: screening (asymptomatic). Last mammogram was performed 1 year and 7 months ago. History: Patient is postmenopausal and had first child at age 36. Excisional biopsy of the right breast, 1979. Took estrogen beginning at age 49. Physical Findings: A clinical breast exam by your physician is recommended on an annual basis and results should be correlated with mammographic findings. MG 3D Screening Mammo W/Cad Bilateral CC and MLO view(s) were taken. Prior study comparison: September 13, 2016, bilateral MG screening mammo w CAD. January 23, 2015, bilateral MG screening mammo w CAD. There are scattered fibroglandular densities. There is chronic nodularity in the right breast. No significant changes when compared with prior studies. ASSESSMENT: Negative, BI-RAD 1 RECOMMENDATION: Routine screening mammogram of both breasts in 1 year.
== END | disposition home or self-care (01) ==
LOC: RADMAMWWP 07:40
PROVIDERS: ATTEND Family Medicine
DX: Z12.31 Encounter for screening mammogram for malignant neoplasm of breast (principal)
CPT/HCPCS: 77063; 77067

== ENCOUNTER → 2018-05-23 | Outpatient (CLI) | payer MEDICARE ==
[2018-05-23 17:40] LABS: Albumin 4.1 g/dL (3.80-4.90); Albumin/Globulin Ratio 1.58 (1.60-3.17); Bilirubin, Conjugated 0.2 mg/dL (0.20-0.40); Bilirubin,Unconjugated 0.5 mg/dL; Globulin 2.6 g/dL (1.6-3.3); Total Bilirubin 0.7 mg/dL (0.3-1.2); Total Protein 6.7 g/dL (6.2-8.2)
== END ==
LOC: LABWHC1 08:15
PROVIDERS: ATTEND Internal Medicine Cardiovascular Disease
DX: E78.5 Hyperlipidemia, unspecified (principal)
CPT/HCPCS: 36415; 80061; 80076

== ENCOUNTER → 2018-08-21 | Outpatient (CLI) | payer MEDICARE ==
--- NOTE | 2018-08-21 16:19 | US ---
EXAMINATION TYPE: US venous doppler duplex LE RT DATE OF EXAM: 08/21/2018 3:54 PM COMPARISON: NONE CLINICAL HISTORY: M79.661 Pain Rt Leg; right popliteal fossa and calf pain; had cortisone injection i nto right knee joint today; palpable at right calf and right anterior foot prominence at lateral mall eolus SIDE PERFORMED: Right TECHNIQUE: The lower extremity deep venous system is examined utilizing real time linear array sonog vanesa with graded compression, doppler sonography and color-flow sonography. VESSELS IMAGED: Common Femoral Vein Deep Femoral Vein Greater Saphenous Vein * Femoral Vein Popliteal Vein Small Saphenous Vein * Proximal Calf Veins (* superficial vessels) Right Leg: Negative for DVT. No mass is seen at right posterior calf and no popliteal fossa cyst is seen. At palpable right lateral foot prominence at lateral malleolus an oval hyperechoic solid mass i s noted solid mass and size = 1.3 x 1.7 x 0.9cm. Small amount of fluid is seen anterior knee near cor tisone injection site. IMPRESSION: 1. No diagnostic evidence of DVT 2. The area of palpable abnormality there is a 1.7 cm hyperechoic mass which has a nonspecific appear ance. This can occasionally be seen with lipoma. Other etiologies not excluded.
== END | disposition home or self-care (01) ==
LOC: RADUSWWP 15:15
PROVIDERS: ATTEND Orthopaedic Surgery
DX: M79.661 Pain in right lower leg (principal)

== ENCOUNTER → 2019-05-03 | Outpatient (CLI) | payer MEDICARE ==
--- NOTE | 2019-05-03 13:32 | US ---
EXAMINATION TYPE: US kidneys/renal and bladder DATE OF EXAM: 05/03/2019 COMPARISON: 11/10/2016 CLINICAL HISTORY: R31.21 MICROSCOPIC HEMATURIA. EXAM MEASUREMENTS: Right Kidney: 10.1 x 4.5 x 4.7 cm Left Kidney: 10.0 x 4.8 x 4.7 cm Incidental finding of multiple liver cysts. Right Kidney: 2 cysts noted measuring 1.) 1.5 x 1.6 x 1.8cm 2.) 3.2 x 3.2 x 3.3cm Left Kidney: this kidney is difficult to visualized due to overlying bowel gas, 2 cysts noted measuri ng 1.) 2.3 x 2.6 x 2.4, 2.)1.7 x 1.6 x 1.6cm Bladder: wnl There is no evidence for hydronephrosis at this point in time. No nephrolithiasis is seen. The urina ry bladder is anechoic. Bilateral ureteral jets are seen. IMPRESSION: Bilateral simple appearing renal cysts although they're somewhat limited evaluation of the left kidne y due to overlying bowel gas. Incidentally noted multiple hepatic cysts are again seen. These are onl y partially visualized.
== END | disposition home or self-care (01) ==
LOC: RADUSWWP 12:17
PROVIDERS: ATTEND Family Medicine
DX: N28.1 Cyst of kidney, acquired (principal)
CPT/HCPCS: 76770

== ENCOUNTER 2019-08-02 09:53 | Observation (INO) | payer MEDICARE ==
--- NOTE | 2019-08-02 09:58 | ED ---
Chest Pain HPI <Anjelica Silva - Last Filed: 08/02/19 13:25> <RubendonnaViolette Gerson - Last Filed: 08/03/19 02:16> - General Stated Complaint: Chest pain Time Seen by Provider: 08/02/19 09:55 - History of Present Illness Initial Comments: 79-year-old female with history of HTN, dyslipidemia, previous smoker presenting today for chief complaint of chest pain. She states she has a pressure in the center of her chest she states she feels under her right shoulder blade. Patient states she also has some pain in her left jaw. She states this been ongoing for the past 2 days. She states the pain is ongoing currently. Patient denies any nausea vomiting abdominal pain she states she has slight shortness of breath with exertion. Denies a specific alleviating or aggravating factors was states the pain has been on and off. Patient denies any headache dizziness syncope. She states she has had increasing anxiety and has been taking Xanax secondary to this pandemic. Patient denies experiencing these symptoms in the past. Previous smoker. No DM. HTN controlled-per patient took medication this morning. Patient BP elevated on arrival Patient denies fevers, cough, diarrhea, vomiting, no leg swelling, no hemoptysis, no travel, no active cancer. Patient has no additional complaints. Upon arrival patient appears well no distress. (Anjelica Silva) - Related Data Home Medications Medication Instructions Recorded Confirmed ALPRAZolam [Xanax] 0.25 mg PO HS 09/07/18 08/02/19 Olmesartan/Hydrochlorothiazide 1 tab PO DAILY 09/07/18 08/02/19 [Benicar Hct 20-12.5 mg Tablet] Multivitamins, Thera [Multivitamin 1 tab PO DAILY 08/02/19 08/02/19 (formulary)] Previous Rx's Medication Instructions Recorded amLODIPine [Norvasc] 5 mg PO HS #30 tab 09/09/18 Allergies Allergy/AdvReac Type Severity Reaction Status Date / Time aspirin AdvReac Nausea & Verified 08/02/19 11:57 Vomiting atorvastatin [From Lipitor] AdvReac MUSCLE Verified 08/02/19 11:57 PAIN W/HIGH DOSES Review of Systems ROS Other: All systems not noted in ROS Statement are negative. <Anjelica Silva - Last Filed: 08/02/19 13:25> ROS Other: All systems not noted in ROS Statement are negative. <Violette Morgan - Last Filed: 08/03/19 02:16> ROS Statement: Those systems with pertinent positive or pertinent negative responses have been documented in the HPI. Past Medical History Past Medical History: GERD/Reflux, Hyperlipidemia, Hypertension, Liver Disease Additional Past Medical History / Comment(s): cysts on liver History of Any Multi-Drug Resistant Organisms: None Reported Past Surgical History: Cholecystectomy, Hernia Repair, Hysterectomy, Orthopedic Surgery Additional Past Surgical History / Comment(s): rotator cuff left shoulder, hernia repair-R inguinal and ventral , lypoma removal Past Anesthesia/Blood Transfusion Reactions: No Reported Reaction Past Psychological History: No Psychological Hx Reported Smoking Status: Former smoker Past Alcohol Use History: None Reported Additional Past Alcohol Use History / Comment(s): STARTED SMOKING AT AGE 20 QUIT AT AGE 36 SMOKED 1 PACK PER WEEK Past Drug Use History: None Reported - Past Family History Mother Family Medical History: No Reported History <Anjelica Silva Sari - Last Filed: 08/02/19 13:25> General Exam <Anjelica Silva Sari - Last Filed: 08/02/19 13:25> - General Exam Comments Initial Comments: General: The patient is awake and alert, in no distress Eye: Pupils are equal, round and reactive to light, extra-ocular movements are intact. No nystagmus. There is normal conjunctiva bilaterally. No signs of icterus. Ears, nose, mouth and throat: There are moist mucous membranes and no oral lesions. Neck: The neck is supple, there is no tenderness or JVD. Cardiovascular: There is a regular rate and rhythm. No murmur, rub or gallop is appreciated. Respiratory: Lungs are clear to auscultation, respirations are non-labored, breath sounds are equal. No wheezes, stridor, rales, or rhonchi. Musculoskeletal: Normal ROM, no tenderness. Strength 5/5. Sensation intact. Radial pulses equal bilaterally 2+. Neurological: A&O x 3. CN II-XII intact grossly, There are no obvious motor or sensory deficits. Coordination appears grossly intact. Speech is normal. Skin: Skin is warm and dry and no rashes or lesions are noted. No LE edema. Psychiatric: Cooperative, appropriate mood & affect, normal judgment. (Anjelica Silva) Course Vital Signs 08/02/19 08/02/19 08/02/19 09:59 11:16 11:43 Pulse Rate 107 H 74 67 Respiratory 18 18 18 Rate Blood Pressure 152/115 142/94 129/98 O2 Sat by Pulse 100 100 100 Oximetry Chest Pain MDM <Anjelica Silva - Last Filed: 08/02/19 13:25> <Violette Morgan - Last Filed: 08/03/19 02:16> - [facility] [place] 79-year-old feel presenting for chest pain. Patient initial troponin negative however he was relieved with nitroglycerin was constant and appear typical. Concern for unstable angina patient was initiated heparin drip with bolus. Denies rectal bleeding/dark stools or hx of hemorrhagic strokes. Evaluated by Dr. Morgan as well as cardiology in the ER. Patient will be admitted for cardiac catheterization, serial troponins, monitoring. Patient agreeable to care plan and admission> Cardiology recommended stat ECHO which was orderd they will review and act upon results. Dr Morgan agreeable to care plan and admission. A total of 45 minutes of critical care time was spent with patient including bedside time time spent ordering and reviewing diagnostic studies discussion with other providers patient assessment and reassessment and documenting the record. (Anjelica Silva) I was available for consultation in the emergency department. The history and physical exam were done by the midlevel provider. I was consulted for this patients care. I reviewed the case with the midlevel provider and based on their presentation of the patient, I agree with the assessment, medical decision making and plan of care as documented. PAtient was evaluated by myself. AFter obtaining EKG I discussed the case with Dr. Decker due to AVR elevation and V2-V6 depression. Carie Baudilio presented to the ED to evaluate the patient for which she recommended catherization. Chart was dictated using [employer] dictation software. Attempts were made to correct any dictation errors however some typographical errors may persist. Patient was seen during a national state of emergency due to the Covid-19 pandemic. (Violette Morgan) Disposition Is patient prescribed a controlled substance at d/c from ED?: No Time of Disposition: 12:03 Decision to Admit Reason: Admit from EC Decision Date: 08/02/19 Decision Time: 12:03 <Anjelica Silva - Last Filed: 08/02/19 13:25> <Violette Morgan - Last Filed: 08/03/19 02:16> Clinical Impression: Unstable angina, Chest pressure Disposition: ADMITTED IP TO THIS HOSP Condition: Serious
[2019-08-02] MEDS ORDERED: NITROGLYCERIN SL TABS 0.4 MG TAB SUBLINGUAL STA (10:05)
[2019-08-02] MEDS ORDERED: MORPHINE SULFATE 4 MG/ML SYRINGE IVP STA (10:28)
[2019-08-02] MEDS ORDERED: NITROGLYCERIN OINT 1 INCH/GM PACKET TOPICAL STA (10:28)
[2019-08-02 10:41] LABS: Basophils % (A) 1 %; Eosinophils # (A) 0.1 k/uL (0-0.7); Eosinophils % (A) 2 %; HCT 43.4 % (34.0-46.0); HGB 13.8 gm/dL (11.4-16.0); Hypochromasia Slight; Lymphocytes # (A) 2.6 k/uL (1.0-4.8); Lymphocytes % (A) 54 %; MCH 27.1 pg (25.0-35.0); MCHC 31.8 g/dL (31.0-37.0); MCV 85.4 fL (80.0-100.0); Mean Platelet Volume 8.8; Monocytes # (A) 0.3 k/uL (0-1.0); Monocytes % (A) 6 %; Neutrophils # (A) 1.7 k/uL (1.3-7.7); Neutrophils % (A) 35 %; Platelet Count 213 k/uL (150-450); RBC 5.08 m/uL (3.80-5.40); RDW 13.9 % (11.5-15.5); WBC 4.9 k/uL (3.8-10.6)
--- NOTE | 2019-08-02 10:42 | XR ---
EXAMINATION TYPE: XR chest 2V DATE OF EXAM: 08/02/2019 COMPARISON: Prior chest x-ray 04/21/2017 CT 02/07/2017 HISTORY: Chest pain TECHNIQUE: Frontal and lateral views of the chest are obtained. FINDINGS: There is no focal air space opacity, pleural effusion, or pneumothorax seen. The cardiac silhouette size is within normal limits. The osseous structures are intact. There are overlying car diac leads. Aorta appears tortuous as on prior exam, is showing increased density. Eventration of rig ht hemidiaphragm again noted. Patient is rotated. IMPRESSION: No acute cardiopulmonary process. Tortuous descending aorta is similar to prior exam.
[2019-08-02 10:58] LABS: Albumin 4.2 g/dL (3.5-5.0); Calcium 10.3 mg/dL (8.4-10.2); Magnesium 1.9 mg/dL (1.6-2.3); Potassium 3.7 mmol/L (3.5-5.1); Total Bilirubin 0.5 mg/dL (0.2-1.3); Total Protein 7.7 g/dL (6.3-8.2)
[2019-08-02] MEDS ORDERED: ASPIRIN 325 MG TAB PO STA ×2 (11:00→12:06)
[2019-08-02] MEDS ORDERED: ATORVASTATIN 80 MG TAB PO STA ×2 (11:01→12:06)
[2019-08-02] MEDS ORDERED: HEPARIN SODIUM,PORCINE 5,000 UNIT/ML 1 ML VIAL IV ONE (11:03)
[2019-08-02] MEDS ORDERED: HEPARIN SODIUM,PORCINE 5,000 UNIT/ML 1 ML VIAL IV PRN (11:03)
[2019-08-02 11:05] LABS: D-Dimer 0.3 mg/L FEU (<0.60); INR 0.9 (<1.2); Partial Thromboplastin Time 22.5 sec (22.0-30.0); Prothrombin Time 9.7 sec (9.0-12.0)
[2019-08-02] MEDS: HEPARIN SOD,PORK IN 0.45% NACL 25,000 UNIT in 0.45% NACL 1 250ML.BAG IV SCH (11:11)
--- NOTE | 2019-08-02 11:43 | P.CRDCN ---
History of Present Illness Consult date: 08/02/19 Consult reason: chest pain Chief complaint: Chest pain History of present illness: This is a pleasant 79-year-old -Citizen Of [place] female with documented history of hypertension, hyperlipidemia. She is a nondiabetic, does not smoke. According to the patient, she has been on several different statins, and gets very sick from them, she states she ultimately develops muscle problems as well. These symptoms occurred after being on statins for an extended period of time. She also states that she can get an upset stomach from taking aspirin. She presented to the hospital on this occasion with symptoms of midsternal chest pressure and heaviness, patient initially thought the chest pain was suggestive of heartburn, she took Tums without relief of symptoms. Last evening, patient states that she again developed the same symptoms, became quite heavy in her chest, and the pain radiated through to her back and shoulder blades area. Again this morning patient developed the same symptoms, was quite concerned and came to the emergency room for further evaluation and treatment. An EKG was performed on arrival to the emergency room, it showed a sinus tachycardia with mild ST elevation noted in aVR, ST depression noted in the anterior lateral leads. Chest x-ray did not reveal any acute cardiopulmonary process. Blood pressure on arrival here 152/115 with a heart rate of 107, 100% on nasal cannula. This morning's blood pressure 142/90 with a heart rate of 70. White blood cell count 4.9, hemoglobin 13.8, platelet count 213. D-dimer 0.3. Sodium 137, potassium 3.7, BUN 14, creatinine 0.9. Magnesium 1.9. Initial troponin is negative. Patient was given sublingual nitroglycerin on arrival here, at the time of my examination she still was having some mild discomfort in her back and scapular region but the chest discomfort has dissipated. Patient did receive a full aspirin, as well as Lipitor 80 mg, she'll be initiated on a heparin drip. A stat echocardiogram with Doppler study has been performed. Past Medical History Past Medical History: GERD/Reflux, Hyperlipidemia, Hypertension, Liver Disease Additional Past Medical History / Comment(s): cysts on liver History of Any Multi-Drug Resistant Organisms: None Reported Past Surgical History: Cholecystectomy, Hernia Repair, Hysterectomy, Orthopedic Surgery Additional Past Surgical History / Comment(s): rotator cuff left shoulder, hernia repair-R inguinal and ventral , lypoma removal Past Anesthesia/Blood Transfusion Reactions: No Reported Reaction Past Psychological History: No Psychological Hx Reported Smoking Status: Former smoker Past Alcohol Use History: None Reported Additional Past Alcohol Use History / Comment(s): STARTED SMOKING AT AGE 20 QUIT AT AGE 36 SMOKED 1 PACK PER WEEK Past Drug Use History: None Reported - Past Family History Mother Family Medical History: No Reported History Medications and Allergies Home Medications Medication Instructions Recorded Confirmed Type ALPRAZolam [Xanax] 0.5 mg PO HS 09/07/18 09/07/18 History Atorvastatin [Lipitor] 40 mg PO Q48H 09/07/18 09/07/18 History Olmesartan/Hydrochlorothiazide 1 tab PO DAILY 09/07/18 09/07/18 History [Benicar Hct 20-12.5 mg Tablet] amLODIPine [Norvasc] 5 mg PO HS #30 tab 09/09/18 Rx Allergies Allergy/AdvReac Type Severity Reaction Status Date / Time aspirin AdvReac Nausea & Verified 08/02/19 10:05 Vomiting atorvastatin [From Lipitor] AdvReac MUSCLE Verified 08/02/19 10:05 PAIN W/HIGH DOSES Physical Exam Vitals: Vital Signs Pulse Resp BP Pulse Ox 08/02/19 11:16 74 18 142/94 100 08/02/19 09:59 107 H 18 152/115 100 Intake and Output 08/01/19 08/02/19 08/02/19 22:59 06:59 14:59 Other: Weight 89.811 kg PHYSICAL EXAMINATION: GENERAL:79-year-old -Citizen Of [place] female in no acute distress at the time of my examination HEENT: Head is atraumatic, normocephalic. Pupils equal, round. Sclera anicteric. Conjunctiva are clear. Mucous membranes of the mouth are moist. Neck is supple. There is no elevated jugular venous pressure. No carotid bruit is heard. HEART EXAMINATION: Heart S1, S2 normal. No murmur or gallop heard. CHEST EXAMINATION: Lungs are clear to auscultation and precussion. No chest wall tenderness is noted on palpation or with deep breathing. ABDOMEN: Soft, nontender. Bowel sounds are heard. No organomegaly noted. EXTREMITIES: 2+ peripheral pulses with no evidence of peripheral edema and no calf tenderness noted. NEUROLOGIC patient is awake, alert and oriented 3 . . Results 08/02/19 10:09 05/14/20 10:09 Cardiac Enzymes 08/02/19 08/02/19 Range/Units 10:09 10:09 AST 26 (14-36) U/L Troponin I <0.012 (0.000-0.034) ng/mL Coagulation 08/02/19 Range/Units 10:09 PT 9.7 (9.0-12.0) sec APTT 22.5 (22.0-30.0) sec CBC 08/02/19 Range/Units 10:09 WBC 4.9 (3.8-10.6) k/uL RBC 5.08 (3.80-5.40) m/uL Hgb 13.8 (11.4-16.0) gm/dL Hct 43.4 (34.0-46.0) % Plt Count 213 (150-450) k/uL Comprehensive Metabolic Panel 08/02/19 Range/Units 10:09 Sodium 137 (137-145) mmol/L Potassium 3.7 (3.5-5.1) mmol/L Chloride 103 (98-107) mmol/L Carbon Dioxide 30 (22-30) mmol/L BUN 14 (7-17) mg/dL Creatinine 0.91 (0.52-1.04) mg/dL Glucose 97 (74-99) mg/dL Calcium 10.3 H (8.4-10.2) mg/dL AST 26 (14-36) U/L ALT 18 (4-34) U/L Alkaline Phosphatase 109 (38-126) U/L Total Protein 7.7 (6.3-8.2) g/dL Albumin 4.2 (3.5-5.0) g/dL Current Medications Generic Name Dose Route Start Last Admin Trade Name Freq PRN Reason Stop Dose Admin Heparin Sodium (Porcine) 0 unit 08/02/19 11:03 Heparin IV PER PROTOCOL PRN Low PTT Protocol Heparin Sodium/Sodium Chloride 250 mls @ 9.996 mls/hr 08/02/19 11:15 08/02/19 11:11 25,000 unit/ Sodium Chloride IV 11.13 units/kg/hr .Q24H AYANNA 9.996 mls/hr Administration Protocol 11.13 UNITS/KG/HR Intake and Output 08/01/19 08/02/19 08/02/19 22:59 06:59 14:59 Other: Weight 89.811 kg Patient Weight 08/03/19 06:59 Weight 89.811 kg 08/02/19 10:09 08/02/19 10:09 EKG Interpretations (text) Initial EKG showed a sinus tachycardia with mild ST changes in aVR and ST depression noted in the anterior lateral leads Assessment and Plan Plan: Assessment and plan #1 symptoms of chest discomfort with radiation to the back and scapula area, and initial EKG shows a sinus tachycardia with ST depression noted in the anterior lateral leads. Possible unstable angina or acute coronary syndrome. Initial troponin negative. #2 hypertension #3 hyperlipidemia, intolerant to statins Plan We will obtain a stat echocardiogram with Doppler study. The patient has been given a full aspirin as well as Lipitor 80. She's been initiated on IV heparin. Nitropaste has been applied. We will start the patient on a small dose of beta mega. It has been explained to the patient that she may need to undergo further testing to rule out underlying coronary artery disease. Cardiac catheterization procedure has been explained to the patient in detail, she is willing to proceed. Further recommendations to follow. DNP note has been reviewed, I agree with a documented findings and plan of care. Patient was seen and examined.
[2019-08-02] MEDS ORDERED: NITROGLYCERIN SL TABS 0.4 MG TAB SUBLINGUAL PRN ×2 (11:55→12:06)
--- NOTE | 2019-08-02 12:00 | ECHOF ---
Referral Reason:Per MEASUREMENTS -------- HEIGHT: 170.2 cm WEIGHT: 89.8 kg BP: 152/115 IVSd: 1.3 cm (0.6 - 1.1) LVIDd: 3.9 cm (3.9 - 5.3) LVPWd: 1.4 cm (0.6 - 1.1) IVSs: 1.7 cm LVIDs: 3.1 cm LVPWs: 1.4 cm LAESV Index (A-L): 21.88 ml/m Ao Diam: 2.9 cm (2.0 - 3.7) AV Cusp: 1.8 cm (1.5 - 2.6) MV EXCURSION: 15.618 mm (> 18.000) MV EF SLOPE: 58 mm/s (70 - 150) EPSS: 0.5 cm MV E Gordo: 0.56 m/s MV DecT: 249 ms MV A Gordo: 0.87 m/s MV E/A Ratio: 0.64 RAP: 5.00 mmHg RVSP: 35.14 mmHg FINDINGS -------- Sinus rhythm. This was a technically adequate study. The left ventricular size is normal. There is moderate concentric left ventricular hypertrophy. O verall left ventricular systolic function is normal with, an EF between 55 - 60 %. The diastolic fi lling pattern is normal for the age of the patient 11.00. The right ventricle is normal in size. Normal LA size by volume 22+/-6 ml/m2. The right atrial size is normal. Interatrial and interventricular septum intact. The aortic valve is trileaflet and appears structurally normal. There is mild aortic valve sclerosi s. There is no evidence of aortic regurgitation. There is no evidence of aortic stenosis. There is trace to mild mitral regurgitation. Mild tricuspid regurgitation present. There is mild pulmonary hypertension. The right ventricular systolic pressure, as measured by Doppler, is 35.14mmHg. There is no pulmonic regurgitation present. The aortic root size is normal. Normal inferior vena cava with normal inspiratory collapse consistent with estimated right atrial pre ssure of 5 mmHg. There is no pericardial effusion. CONCLUSIONS -------- 1. Sinus rhythm. 2. This was a technically adequate study. 3. The left ventricular size is normal. 4. There is moderate concentric left ventricular hypertrophy. 5. Overall left ventricular systolic function is normal with, an EF between 55 - 60 %. 6. The diastolic filling pattern is normal for the age of the patient 11.00 7. The right ventricle is normal in size. 8. Normal LA size by volume 22+/-6 ml/m2. 9. The right atrial size is normal. 10. Interatrial and interventricular septum intact. 11. The aortic valve is trileaflet and appears structurally normal. 12. There is mild aortic valve sclerosis. 13. There is no evidence of aortic regurgitation. 14. There is no evidence of aortic stenosis. 15. There is trace to mild mitral regurgitation. 16. Mild tricuspid regurgitation present. 17. There is mild pulmonary hypertension. 18. The right ventricular systolic pressure, as measured by Doppler, is 35.14mmHg. 19. There is no pulmonic regurgitation present. 20. The aortic root size is normal. 21. Normal inferior vena cava with normal inspiratory collapse consistent with estimated right atrial pressure of 5 mmHg. 22. There is no pericardial effusion. FISHING WORKER: Nereida Simon RDCS
[2019-08-02] MEDS ORDERED: ALPRAZolam 0.5 MG TAB PO PRN (12:06)
[2019-08-02] MEDS ORDERED: ALPRAZolam 0.25 MG TAB PO PRN (12:06)
[2019-08-02] MEDS ORDERED: IV FLUID CONTINUATION 900 ML IV ONE (12:15)
[2019-08-02] MEDS ORDERED: fentaNYL (PF) 50 MCG/ML 2 ML AMP ONE (12:17)
[2019-08-02] MEDS ORDERED: HEPARIN SODIUM 1,000 UN/ML (10ML VL) ONE (12:17)
[2019-08-02] MEDS ORDERED: LIDOCAINE 1% INJ 10MG/ML (20 ML MDV) ONE (12:17)
[2019-08-02] MEDS ORDERED: VERAPAMIL 2.5 MG/ML 2 ML AMP ONE (12:17)
[2019-08-02] MEDS ORDERED: MIDAZOLAM 2 MG/2 ML VIAL IV ONE (12:35)
[2019-08-02] MEDS ORDERED: fentaNYL (PF) 50 MCG/ML 2 ML AMP IV ONE (12:36)
[2019-08-02] MEDS: LIDOCAINE 1% INJ 10MG/ML (20 ML MDV) SQ ONE ×2 (12:37→12:51)
[2019-08-02] MEDS ORDERED: VERAPAMIL SYRINGE (5 MG/10 ML) INTRAARTER ONE (12:40)
[2019-08-02] MEDS ORDERED: HEPARIN SODIUM 1,000 UN/ML (10ML VL) IV ONE (12:42)
[2019-08-02] MEDS ORDERED: RX INFO: IV CONTRAST WAS GIVEN 1 EACH MISC MISCELLANE PRN (13:16)
[2019-08-02] MEDS ORDERED: IOPAMIDOL-370 125ML BTL INJ ONE (13:18)
[2019-08-02] MEDS ORDERED: IOPAMIDOL-300 50ML BTL INJ ONE (13:18)
[2019-08-02] MEDS ORDERED: NALOXONE 0.4 MG/ML 1 ML VIAL IV PRN (16:34)
[2019-08-02] MEDS ORDERED: LACTULOSE 20 GM/30 ML CUP PO PRN (16:34)
[2019-08-02] MEDS ORDERED: MELATONIN 3 MG TABLET PO PRN (16:34)
[2019-08-02] MEDS ORDERED: NA PHOS,M-B/NA PHOS,DI-BA 133 ML ENEMA RECTAL PRN (16:34)
[2019-08-02] MEDS ORDERED: CALCIUM CARBONATE 500 MG CHEWABLE PO PRN (16:34)
[2019-08-02] MEDS ORDERED: MAGNESIUM HYDROXIDE 2,400 MG/10 ML CUP PO PRN (16:34)
[2019-08-02] MEDS ORDERED: ACETAMINOPHEN TAB 325 MG TAB PO PRN (16:34)
[2019-08-02] MEDS ORDERED: ONDANSETRON 4 MG/2 ML VIAL IVP PRN (16:34)
[2019-08-02] MEDS ORDERED: MAG HYDROX/AL HYDROX/SIMETH 30 ML CUP PO PRN (16:34)
[2019-08-02] MEDS: SODIUM CHLORIDE 0.9% 1,000 ML IV SCH (17:54)
[2019-08-02] MEDS ORDERED: amLODIPine 5 MG TAB PO SCH (21:00)
[2019-08-02 21:07] VITALS: RESP 18
--- NOTE | 2019-08-02 21:13 | P.HPIM ---
History of Present Illness H&P Date: 08/02/19 Chief Complaint: Chest pressure Chief Complaint: Nearly passed out History of presenting complaint: This is a very pleasant 79 year old patient of Dr. Grove. Chronic stable medical conditions include GERD, hypertension, hyperlipidemia, anxiety. Patient often gets gas discomfort in the epigastric area and it passes of. Patient's symptoms of reflux guarded been progressively getting worse. 2 days ago she started having chest pressure in the midsternal area. Does seem to progress. Not necessarily related to any activity. Sometimes the reflux symptoms. Did not radiate anywhere. No dizziness no lightheadedness. No palpitation. Because of the chest pressure decided to come in. There was question of what ST segment changes in the ER and because of her presentation patient was taken to the cardiac catheterization lab. I do not have the formal result. Patient follows. The cardiac catheterization was unremarkable. Review of systems: GEN.: Tired EYES: None HEENT: None NECK: None RESPIRATORY: None CARDIOVASCULAR: As above GASTROINTESTINAL: As above GENITOURINARY: None MUSCULOSKELETAL: Some pain in the joints] LYMPHATICS: None HEMATOLOGICAL: None PSYCHIATRY: None] NEUROLOGICAL: No focal Past medical history to include: GERD, hyperlipidemia, essential hypertension, anxiety, moderate tricuspid regurgitation Social history: Does not smoke or drink alcohol. Lives by herself. Family: Reviewed, noncontributory to presentation Physical examination: VITAL SIGNS: Afebrile, 74, 18, 142/94, 100% GENERAL: BMI 31, propped up in bed, awake EYES: Pupils equal. Conjunctiva normal. HEENT: External appearance of nose and ears normal, oral cavity grossly normal. NECK: JVD not raised; masses not palpable. HEART: First and second heart sounds are normal; no edema. LUNGS: Respiratory rate normal; clear to auscultation. ABDOMEN: Soft, nontender, liver spleen not palpable, no masses palpable. LYMPHATICS: No lymph nodes palpable in the axilla and neck. PSYCH: Alert and oriented x3; mood and affect slightly anxious NEUROLOGICAL: Cranial nerves grossly intact; no facial asymmetry, power and sensation grossly intact. Investigations: White count 4.9 hemoglobin 13.8 progression 3.7 creatinine 0.91 Troponin I 2 both negative EKG tracing personally reviewed by me-shows some possible ST segment changes. Chest x-ray film personally reviewed by me-nil acute 2-D echocardiogram-moderate concentric LVH, EF 55-60% Assessment: -Anterior chest wall pain with some cardiac features and risk factors of hyperlipidemia and hypertension and some ST segment changes and negative cardiac enzymes resulted patient having a cardiac catheterization. Reportedly no significant coronary artery disease. -GERD exacerbation -Hyperlipidemia -Essential hypertension -Obesity BMI 31 -Anxiety not otherwise specified . Plan: We will await the formal results of the cardiac catheterization. Home medications were continued. Patient is put on a PPI. Patient will need outpatient EGD. Discussed with the patient. Questions were answered. Past Medical History Past Medical History: GERD/Reflux, Hyperlipidemia, Hypertension, Liver Disease Additional Past Medical History / Comment(s): cysts on liver History of Any Multi-Drug Resistant Organisms: None Reported Past Surgical History: Cholecystectomy, Hernia Repair, Hysterectomy, Orthopedic Surgery Additional Past Surgical History / Comment(s): rotator cuff left shoulder, hernia repair-R inguinal and ventral , lypoma removal Past Anesthesia/Blood Transfusion Reactions: No Reported Reaction Past Psychological History: No Psychological Hx Reported Smoking Status: Former smoker Past Alcohol Use History: None Reported Additional Past Alcohol Use History / Comment(s): STARTED SMOKING AT AGE 20 QUIT AT AGE 36 SMOKED 1 PACK PER WEEK Past Drug Use History: None Reported - Past Family History Mother Family Medical History: No Reported History Medications and Allergies Home Medications Medication Instructions Recorded Confirmed Type ALPRAZolam [Xanax] 0.25 mg PO HS 09/07/18 08/02/19 History Olmesartan/Hydrochlorothiazide 1 tab PO DAILY 09/07/18 08/02/19 History [Benicar Hct 20-12.5 mg Tablet] amLODIPine [Norvasc] 5 mg PO HS #30 tab 09/09/18 08/02/19 Rx Multivitamins, Thera [Multivitamin 1 tab PO DAILY 08/02/19 08/02/19 History (formulary)] Allergies Allergy/AdvReac Type Severity Reaction Status Date / Time aspirin AdvReac Nausea & Verified 08/02/19 11:57 Vomiting atorvastatin [From Lipitor] AdvReac MUSCLE Verified 08/02/19 11:57 PAIN W/HIGH DOSES Physical Exam Vitals: Vital Signs Pulse Pulse Resp BP BP Pulse Ox 08/02/19 17:30 72 120/63 99 08/02/19 16:16 71 16 110/71 08/02/19 15:04 84 16 113/75 97 08/02/19 14:30 76 16 135/90 100 08/02/19 13:30 74 16 128/86 92 L 08/02/19 12:12 70 18 137/91 100 08/02/19 11:43 67 18 129/98 100 08/02/19 11:16 74 18 142/94 100 08/02/19 09:59 107 H 18 152/115 100 Intake and Output 08/02/19 08/02/19 08/02/19 06:59 14:59 22:59 Intake Total 100 Balance 100 Intake: IV 100 Other: # Voids 1 Weight 89.811 kg Results CBC & Chem 7: 08/02/19 10:09 08/02/19 10:09 Labs: Abnormal Lab Results - Last 24 Hours (Table) 08/02/19 Range/Units 10:09 Calcium 10.3 H (8.4-10.2) mg/dL Thrombosis Risk Factor Assmnt - Choose All That Apply Each Factor Represents 1 point: Obesity (BMI >25) Each Risk Factor Represents 3 Points: Age 75 years or older Thrombosis Risk Factor Assessment Total Risk Factor Score: 4 Thrombosis Risk Factor Assessment Level: Moderate Risk
[2019-08-02] MEDS: PANTOPRAZOLE 40 MG TABLET PO SCH (22:06)
[2019-08-03] MEDS: PANTOPRAZOLE 40 MG TABLET PO SCH (06:44)
[2019-08-03] MEDS: SODIUM CHLORIDE 0.9% 1,000 ML IV SCH (06:45)
[2019-08-03 07:18] LABS: Basophils % (A) 1 %; Eosinophils # (A) 0.1 k/uL (0-0.7); Eosinophils % (A) 2 %; HCT 41.9 % (34.0-46.0); HGB 13.3 gm/dL (11.4-16.0); Hypochromasia Moderate; Lymphocytes # (A) 1.8 k/uL (1.0-4.8); Lymphocytes % (A) 34 %; MCH 27.6 pg (25.0-35.0); MCHC 31.8 g/dL (31.0-37.0); MCV 86.9 fL (80.0-100.0); Mean Platelet Volume 9.2; Monocytes # (A) 0.4 k/uL (0-1.0); Monocytes % (A) 7 %; Neutrophils # (A) 2.8 k/uL (1.3-7.7); Neutrophils % (A) 54 %; Platelet Count 180 k/uL (150-450); RBC 4.82 m/uL (3.80-5.40); RDW 13.6 % (11.5-15.5); WBC 5.3 k/uL (3.8-10.6)
[2019-08-03 07:25] LABS: Cholesterol 209 mg/dL (<200); HDL Cholesterol 57 mg/dL (40-60); LDL Cholesterol,Calculated 140 mg/dL (0-99); Triglycerides 58 mg/dL (<150)
[2019-08-03] MEDS ORDERED: LOSARTAN 50 MG TAB PO SCH (09:00)
[2019-08-03] MEDS ORDERED: ATORVASTATIN 40 MG TAB PO SCH (09:00)
[2019-08-03] MEDS ORDERED: HYDROCHLOROTHIAZIDE 12.5 MG CAP PO SCH (09:00)
[2019-08-03] MEDS ORDERED: MULTIVITAMINS, THERA 1 EACH TAB PO SCH (09:00)
[2019-08-03 11:01] VITALS: BP 127/68; PULSE 94; TEMP 97.9
--- NOTE | 2019-08-03 11:25 | P.PN ---
Subjective Progress Note Date: 08/03/19 This is a pleasant 79-year-old -[place] female with documented history of hypertension, hyperlipidemia. She is a nondiabetic, does not smoke. According to the patient, she has been on several different statins, and gets very sick from them, she states she ultimately develops muscle problems as well. These symptoms occurred after being on statins for an extended period of time. She also states that she can get an upset stomach from taking aspirin. She presented to the hospital on this occasion with symptoms of midsternal chest pressure and heaviness, patient initially thought the chest pain was suggestive of heartburn, she took Tums without relief of symptoms. Last evening, patient states that she again developed the same symptoms, became quite heavy in her chest, and the pain radiated through to her back and shoulder blades area. Again this morning patient developed the same symptoms, was quite concerned and came to the emergency room for further evaluation and treatment. An EKG was performed on arrival to the emergency room, it showed a sinus tachycardia with mild ST elevation noted in aVR, ST depression noted in the anterior lateral leads. Chest x-ray did not reveal any acute cardiopulmonary process. Blood pressure on arrival here 152/115 with a heart rate of 107, 100% on nasal cannula. This morning's blood pressure 142/90 with a heart rate of 70. White blood cell count 4.9, hemoglobin 13.8, platelet count 213. D-dimer 0.3. Sodium 137, potassium 3.7, BUN 14, creatinine 0.9. Magnesium 1.9. Initial troponin is negative. Patient was given sublingual nitroglycerin on arrival here, at the time of my examination she still was having some mild discomfort in her back and scapular region but the chest discomfort has dissipated. Patient did receive a full aspirin, as well as Lipitor 80 mg, she'll be initiated on a heparin drip. A stat echocardiogram with Doppler study has been performed. 08/03/2019 Patient was taken to the cardiac catheterization lab yesterday where she was found to have mild nonobstructive coronary artery disease and medical therapy was advised. She was seen and examined this morning and is doing well. Denies any chest discomfort and her breathing is stable. Echocardiogram with Doppler study was performed which revealed an ejection fraction of 55-60%. Blood pressure 126/60 with a heart rate of 60, 1% on room air. Objective - Vital Signs Vital signs: Vital Signs Temp 97.9 F 08/03/19 08:00 Pulse 94 08/03/19 08:00 Resp 18 08/03/19 04:00 BP 127/68 08/03/19 08:00 Pulse Ox 100 08/03/19 08:00 Intake & Output 08/02/19 08/03/19 08/03/19 18:59 06:59 18:59 Intake Total 100 100 Output Total 0 Balance 100 0 100 Weight 89.811 kg 94 kg Intake: IV 100 Oral 100 Output: Urine 0 Stool 0 Other: # Voids 1 1 - Exam PHYSICAL EXAMINATION: GENERAL: 79-year-old -[place] female in no acute distress at the time of my examination HEENT: Head is atraumatic, normocephalic. Pupils equal, round. Sclera anicteric. Conjunctiva are clear. Mucous membranes of the mouth are moist. Neck is supple. There is no elevated jugular venous pressure.] bruit is heard. HEART EXAMINATION: normal. No murmur or gallop heard.] CHEST EXAMINATION:[ Lungs are clear to auscultation and precussion. No chest wall tenderness is noted on palpation or with deep breathing.] ABDOMEN: [ Soft, nontender. Bowel sounds are heard. No organomegaly noted]. EXTREMITIES:[ 2+ peripheral pulses with no evidence of peripheral edema and no calf tenderness noted]. Right radial site and right groin soft, no evidence of any hematoma. NEUROLOGIC [patient is awake, alert and oriented 3 .] . - Labs CBC & Chem 7: 08/03/19 05:53 08/02/19 10:09 Labs: Abnormal Lab Results - Last 24 Hours (Table) 08/03/19 Range/Units 05:53 Cholesterol 209 H (<200) mg/dL LDL Cholesterol, Calc 140 H (0-99) mg/dL Assessment and Plan Plan: Assessment and plan #1 symptoms of chest discomfort with radiation to the back and scapula area, and initial EKG shows a sinus tachycardia with ST depression noted in the anterior lateral leads. Possible unstable angina or acute coronary syndrome. Initial troponin negative. #2 hypertension #3 hyperlipidemia, intolerant to statins Plan Echocardiogram with Doppler study revealed a normal left ventricular systolic function. Cardiac catheterization was performed which revealed healed mild nonobstructive coronary artery disease. From cardiology's perspective, the patient may be able to be discharged home today. We will put her on a baby aspirin, continue Lipitor 40 mg daily, Norvasc 5 mg daily, losartan 100 mg daily. Follow-up appointment in the office with Dr. Shannon post discharge. DNP note has been reviewed, I agree with a documented findings and plan of care. Patient was seen and examined.
[2019-08-03] MEDS: HEPARIN SOD,PORK IN 0.45% NACL 25,000 UNIT in 0.45% NACL 1 250ML.BAG IV SCH (12:30)
--- NOTE | 2019-08-03 22:43 | P.DS ---
Providers Date of admission: 08/02/19 11:42 Expected date of discharge: 08/03/19 Attending physician: Nino Trinh Consults: 08/02/19 11:03 Consult Physician Routine Consulting Provider: Roman Decker Consult Reason/Comments: NSTEMI Do you want consulting provider notified?: Already Contacted Primary care physician: [facility] Course: Chief Complaint: Chest pressure History of presenting complaint: This is a very pleasant 79 year old patient of Dr. Grove. Chronic stable medical conditions include GERD, hypertension, hyperlipidemia, anxiety. Patient often gets gas discomfort in the epigastric area and it passes of. Patient's symptoms of reflux guarded been progressively getting worse. 2 days ago she started having chest pressure in the midsternal area. Does seem to progress. Not necessarily related to any activity. Sometimes the reflux symptoms. Did not radiate anywhere. No dizziness no lightheadedness. No palpitation. Because of the chest pressure decided to come in. There was question of what ST segment changes in the ER and because of her presentation patient was taken to the cardiac catheterization lab. I do not have the formal result. Patient follows. The cardiac catheterization was unremarkable. Patient's symptoms are felt from exacerbation of GERD. Today-care was discussed at length with the patient. Questions were answered. PPI started. We'll follow up for an GI for EGD Consultation: Dr. Mindi Decker from cardiology Physical examination: VITAL SIGNS: 97.9, 94, 18, 127/68, 100% on room air GENERAL: Sitting up, comfortable EYES: Pupils equal. Conjunctiva normal. HEENT: External appearance of nose and ears normal, oral cavity grossly normal. NECK: JVD not raised; masses not palpable. HEART: First and second heart sounds are normal; no edema. LUNGS: Respiratory rate normal; clear to auscultation. ABDOMEN: Soft, nontender, liver spleen not palpable, no masses palpable. PSYCH: Alert and oriented x3; mood and affect slightly anxious Investigations: White count 4.9 hemoglobin 13.8 progression 3.7 creatinine 0.91 Troponin I 2 both negative EKG tracing personally reviewed by me-shows some possible ST segment changes. Chest x-ray film personally reviewed by me-nil acute 2-D echocardiogram-moderate concentric LVH, EF 55-60% Assessment: -Anterior chest wall pressure probably due to esophageal spasm secondary to esophagitis. -GERD exacerbation -Hyperlipidemia -Essential hypertension -Obesity BMI 31 -Anxiety not otherwise specified Disposition: Home Patient Condition at Discharge: Stable Plan - Discharge Summary Discharge Rx Participant: No New Discharge Prescriptions: New Aspirin 81 mg PO DAILY chew Omeprazole [PriLOSEC] 20 mg PO AC-BID #60 cap Calcium Carbonate [Tums] 1,000 mg PO Q4HR PRN chew PRN Reason: Dyspepsia Atorvastatin Calcium [Lipitor] 20 mg PO HS #30 tab Continue ALPRAZolam [Xanax] 0.25 mg PO HS Olmesartan/Hydrochlorothiazide [Benicar Hct 20-12.5 mg Tablet] 1 tab PO DAILY amLODIPine [Norvasc] 5 mg PO HS #30 tab Multivitamins, Thera [Multivitamin (formulary)] 1 tab PO DAILY Discharge Medication List ALPRAZolam [Xanax] 0.25 mg PO HS 09/07/18 [History] Olmesartan/Hydrochlorothiazide [Benicar Hct 20-12.5 mg Tablet] 1 tab PO DAILY 09/07/18 [History] amLODIPine [Norvasc] 5 mg PO HS #30 tab 09/09/18 [Rx] Multivitamins, Thera [Multivitamin (formulary)] 1 tab PO DAILY 08/02/19 [History] Aspirin 81 mg PO DAILY chew 08/03/19 [Rx] Atorvastatin Calcium [Lipitor] 20 mg PO HS #30 tab 08/03/19 [Rx] Calcium Carbonate [Tums] 1,000 mg PO Q4HR PRN chew 08/03/19 [Rx] Omeprazole [PriLOSEC] 20 mg PO AC-BID #60 cap 08/03/19 [Rx] Follow up Appointment(s)/Referral(s): Campbell Grove DO [Primary Care Provider] - 08/15/19 3:20 pm Daniella Shannon MD [STAFF PHYSICIAN] - 08/10/19 11:00 am (August 23 appointment was canceled.) Hamzah Wilson MD [STAFF PHYSICIAN] - 2 Weeks (Office is experiencing computer issues at this time, they will call you with appointment time.) Patient Instructions/Handouts: *[facility] - After Heart Catheterization - Assistant [employer] Instructions Discharge Disposition: HOME SELF-CARE
[2019-08-04] MEDS ORDERED: ASPIRIN 81 MG PO SCH (09:00)
--- NOTE | 2019-08-10 13:12 | P.CARDCATH ---
Date of Procedure: 08/02/19 Preoperative Diagnosis: Unstable angina Postoperative Diagnosis: Same Procedure(s) Performed: Left heart catheterization without left ventriculography Description of Procedure: HISTORY: This is a 79-year-old female with history of hypertension, hypercholesterolemia who was admitted to the hospital with complaints of chest pain. Patient had EKG changes and responded to nitroglycerin sublingual. Patient is advised to have cardiac catheterization by Dr. Decker CONSENT:I have discussed the risks, benefits and alternative therapies for the above-mentioned procedure and for both sedation/analgesia as well as necessary blood product administration, if indicated, as they pertain to this patient. The patient has indicated understanding and acceptance of the risks and procedures discussed. PROCEDURE: Patient was brought to the lab in a fasting state. Patient was given some IV sedation. The right wrist is infiltrated in the right radial artery was entered. The sheath was left in place. However, attempts to advance catheters into the descending aorta method with the difficulties, because of the tortuosity. The procedure was abandoned and the procedure was performed from the right groin The right groin is infiltrated with lidocaine and right femoral artery was entered using Seldinger technique. A 6-Kittitian catheter was left in place and selective coronary arteriography and aortic root injection was performed. Patient tolerated the procedure well. Femoral angiogram was performed and Angio-Seal was applied for hemostasis. No immediate complications were noted and patient was transferred to [facility] in a stable condition Conscious Sedation: Versed 1mg Fentanyl 25 g Duration 43minutes HEMODYNAMICS: Aortic pressure was about 150/70. There was no gradient across the aortic valve SELECTIVE CORONARY ARTERIOGRAPHY: LEFT MAIN: Relatively short and free of occlusive disease THE LEFT ANTERIOR DESCENDING CORONARY ARTERY:. This is a good caliber vessel and tortuous in its course. He did use ice to good- sized diagonal branch. The LAD and branches are free of occlusive disease THE LEFT CIRCUMFLEX AND IS CORONARY ARTERY:. This is a moderate caliber vessel giving rise to good-sized OM branch. The circumflex was coronary artery and branches are free of occlusive disease THE RIGHT CORONARY ARTERY:. This is a good caliber vessel with mild ectatic changes but free of any significant occlusive disease. Is a codominant vessel LEFT VENTRICULOGRAPHY: Not performed Aortic root injection: This is performed in 30 left anterior oblique projection. This revealed slightly dilated aorta which appear to be tortuous throughout its course especially in the descending thoracic and abdominal area. There is no aortic regurgitation FINAL IMPRESSION:. Mild ectasia without any critical coronary artery disease. Diffusedly dilated and tortuous aorta PLAN: Maximum medical therapy and this factor modification PROGNOSIS: Fair
== END 2019-08-03 12:50 | disposition home or self-care (01) ==
LOC: EC 09:53 → INTOOBSV 11:42 → 3SCARD 11:42 → UNDODISIN 08-03 12:50
PROVIDERS: ADMIT Hospitalist; ATTEND Hospitalist
PROC: B2111ZZ Fluoroscopy of Multiple Coronary Arteries using Low Osmolar Contrast (ICD-10-PCS; principal; 2019-08-02 12:27)
PROC: 4A023N7 Measurement of Cardiac Sampling and Pressure, Left Heart, Percutaneous Approach (ICD-10-PCS; principal; 2019-08-02 12:27)
DX: R07.89 Other chest pain (principal); R68.84 Jaw pain; K21.9 Gastro-esophageal reflux disease without esophagitis; I36.1 Nonrheumatic tricuspid (valve) insufficiency; I77.1 Stricture of artery; K76.89 Other specified diseases of liver; Q25.46 Tortuous aortic arch; I77.812 Thoracoabdominal aortic ectasia; I25.10 Atherosclerotic heart disease of native coronary artery without angina pectoris; E78.5 Hyperlipidemia, unspecified; I77.819 Aortic ectasia, unspecified site; E78.00 Pure hypercholesterolemia, unspecified; I10 Essential (primary) hypertension; E66.9 Obesity, unspecified; Z68.31 Body mass index [BMI] 31.0-31.9, adult; F41.9 Anxiety disorder, unspecified; Z88.6 Allergy status to analgesic agent; Z88.8 Allergy status to other drugs, medicaments and biological substances; Z79.899 Other long term (current) drug therapy; Z87.891 Personal history of nicotine dependence; Z90.710 Acquired absence of both cervix and uterus; Z90.49 Acquired absence of other specified parts of digestive tract; Z03.818 Encounter for observation for suspected exposure to other biological agents ruled out
CPT/HCPCS: 93005 ×2; 96376; 96365; 99291; 36415; 93306; 93458; 85379; 83880; 80061; 80053; 83690; 83735; 84484; 85025 ×2; 85610; 85730; 87635; 71046; G0378 ×2; C1769 ×4; C1760; C1894 ×2; J2250; J1644 ×3; J2001; J3010; Q9967 ×2

== ENCOUNTER 2019-11-26 13:02 | Observation (INO) | payer MEDICARE ==
[2019-11-26] MEDS ORDERED: LORazepam 2 MG/ML INJ IV STA (13:31)
--- NOTE | 2019-11-26 13:34 | ED ---
General Adult HPI - General Chief complaint: Shortness of Breath Stated complaint: heartburn, SOB Time Seen by Provider: 11/26/19 13:11 Source: patient, RN notes reviewed Mode of arrival: wheelchair Limitations: no limitations - History of Present Illness Initial comments: Patient is a pleasant 79-year-old female presenting to the emergency Department with indigestion in her chest. Onset of symptoms was when she woke this morning. Symptoms have been mild but steady since that time. Patient does feel short of breath as well. Patient did have similar symptoms in August and had a heart cath done that was reported as negative to her. Patient states she does occasionally get symptoms like this. Patient does admit to feeling well but anxious. Patient states it does feel like her heart is racing some as well. No nausea or diaphoresis. Patient did take a walk today without any worsening of symptoms. No leg pain or leg swelling. - Related Data Home Medications Medication Instructions Recorded Confirmed ALPRAZolam [Xanax] 0.25 mg PO HS 09/07/18 08/02/19 Olmesartan/Hydrochlorothiazide 1 tab PO DAILY 09/07/18 08/02/19 [Benicar Hct 20-12.5 mg Tablet] Multivitamins, Thera [Multivitamin 1 tab PO DAILY 08/02/19 08/02/19 (formulary)] Previous Rx's Medication Instructions Recorded amLODIPine [Norvasc] 5 mg PO HS #30 tab 09/09/18 Aspirin 81 mg PO DAILY chew 08/03/19 Atorvastatin Calcium [Lipitor] 20 mg PO HS #30 tab 08/03/19 Calcium Carbonate [Tums] 1,000 mg PO Q4HR PRN chew 08/03/19 Omeprazole [PriLOSEC] 20 mg PO AC-BID #60 cap 08/03/19 Allergies Allergy/AdvReac Type Severity Reaction Status Date / Time aspirin AdvReac Nausea & Verified 11/26/19 13:10 Vomiting atorvastatin [From Lipitor] AdvReac MUSCLE Verified 11/26/19 13:10 PAIN W/HIGH DOSES Review of Systems ROS Statement: Those systems with pertinent positive or pertinent negative responses have been documented in the HPI. ROS Other: All systems not noted in ROS Statement are negative. Constitutional: Denies: fever Eyes: Denies: eye pain ENT: Denies: ear pain Respiratory: Reports: as per HPI. Denies: cough Cardiovascular: Reports: as per HPI, palpitations Endocrine: Denies: fatigue Gastrointestinal: Denies: abdominal pain Genitourinary: Denies: urgency Musculoskeletal: Denies: back pain Skin: Denies: rash Neurological: Denies: weakness Past Medical History Past Medical History: GERD/Reflux, Hyperlipidemia, Hypertension, Liver Disease Additional Past Medical History / Comment(s): cysts on liver History of Any Multi-Drug Resistant Organisms: None Reported Past Surgical History: Cholecystectomy, Hernia Repair, Hysterectomy, Orthopedic Surgery Additional Past Surgical History / Comment(s): rotator cuff left shoulder, hernia repair-R inguinal and ventral , lypoma removal Past Anesthesia/Blood Transfusion Reactions: No Reported Reaction Past Psychological History: No Psychological Hx Reported Smoking Status: Former smoker Past Alcohol Use History: None Reported Past Drug Use History: None Reported - Past Family History Mother Family Medical History: No Reported History General Exam Limitations: no limitations General appearance: alert, in no apparent distress Head exam: Present: normocephalic Eye exam: Present: normal appearance Neck exam: Present: normal inspection Respiratory exam: Present: normal lung sounds bilaterally. Absent: chest wall tenderness Cardiovascular Exam: Present: tachycardia Expanded Peripheral pulses: 2+: Radial (R), Radial (L), Posterior Tibialis (R), Posterior Tibialis (L), Dorsalis Pedis (R), Dorsalis Pedis (L) GI/Abdominal exam: Present: soft. Absent: tenderness Extremities exam: Present: normal inspection. Absent: pedal edema, calf tenderness Neurological exam: Present: alert Psychiatric exam: Present: normal affect, normal mood Skin exam: Present: normal color Course Vital Signs 11/26/19 11/26/19 13:07 14:34 Temperature 98.1 F 98.2 F Pulse Rate 107 H 88 Respiratory 18 18 Rate Blood Pressure 147/81 119/85 O2 Sat by Pulse 98 97 Oximetry EKG Findings - EKG Comments: EKG Findings:: Sinus tachycardia 109. PVC is present. LA 140. QRS 78. QT 324. QTC 436. Normal axis. LVH criteria. Nonspecific ST-T. Medical Decision Making - Medical Decision Making Patient reevaluated and does feel better resting in bed. Patient feels better following Ativan. Patient does have borderline ST depression in EKG as well as slightly elevated troponin. Patient updated on results and plan. Case discussed in detail with Dr. Trinh, who will admit covering for Dr. Grove. Computed tomography scan will be ordered. Cardiology will be placed on consult - Lab Data Result diagrams: 11/26/19 13:36 11/26/19 13:36 Lab Results 11/26/19 11/26/19 11/26/19 Range/Units 13:36 13:36 13:36 WBC 4.8 (3.8-10.6) k/uL RBC 4.88 (3.80-5.40) m/uL Hgb 13.3 (11.4-16.0) gm/dL Hct 41.9 (34.0-46.0) % MCV 85.8 (80.0-100.0) fL MCH 27.1 (25.0-35.0) pg MCHC 31.6 (31.0-37.0) g/dL RDW 13.5 (11.5-15.5) % Plt Count 169 (150-450) k/uL Neutrophils % 49 % Lymphocytes % 42 % Monocytes % 6 % Eosinophils % 1 % Basophils % 1 % Neutrophils # 2.4 (1.3-7.7) k/uL Lymphocytes # 2.0 (1.0-4.8) k/uL Monocytes # 0.3 (0-1.0) k/uL Eosinophils # 0.0 (0-0.7) k/uL Basophils # 0.0 (0-0.2) k/uL PT 10.1 (9.0-12.0) sec INR 1.0 (<1.2) APTT 21.8 L (22.0-30.0) sec D-Dimer 0.37 (<0.60) mg/L FEU Sodium 140 (137-145) mmol/L Potassium 3.2 L (3.5-5.1) mmol/L Chloride 104 (98-107) mmol/L Carbon Dioxide 28 (22-30) mmol/L Anion Gap 8 mmol/L BUN 15 (7-17) mg/dL Creatinine 0.97 (0.52-1.04) mg/dL Est GFR (CKD-EPI)AfAm 65 (>60 ml/min/1.73 sqM) Est GFR (CKD-EPI)NonAf 57 (>60 ml/min/1.73 sqM) Glucose 132 H (74-99) mg/dL Calcium 10.0 (8.4-10.2) mg/dL Magnesium 1.8 (1.6-2.3) mg/dL Total Bilirubin 0.7 (0.2-1.3) mg/dL AST 25 (14-36) U/L ALT 16 (4-34) U/L Alkaline Phosphatase 88 (38-126) U/L Troponin I (0.000-0.034) ng/mL Total Protein 7.0 (6.3-8.2) g/dL Albumin 4.1 (3.5-5.0) g/dL 11/26/19 Range/Units 13:36 WBC (3.8-10.6) k/uL RBC (3.80-5.40) m/uL Hgb (11.4-16.0) gm/dL Hct (34.0-46.0) % MCV (80.0-100.0) fL MCH (25.0-35.0) pg MCHC (31.0-37.0) g/dL RDW (11.5-15.5) % Plt Count (150-450) k/uL Neutrophils % % Lymphocytes % % Monocytes % % Eosinophils % % Basophils % % Neutrophils # (1.3-7.7) k/uL Lymphocytes # (1.0-4.8) k/uL Monocytes # (0-1.0) k/uL Eosinophils # (0-0.7) k/uL Basophils # (0-0.2) k/uL PT (9.0-12.0) sec INR (<1.2) APTT (22.0-30.0) sec D-Dimer (<0.60) mg/L FEU Sodium (137-145) mmol/L Potassium (3.5-5.1) mmol/L Chloride (98-107) mmol/L Carbon Dioxide (22-30) mmol/L Anion Gap mmol/L BUN (7-17) mg/dL Creatinine (0.52-1.04) mg/dL Est GFR (CKD-EPI)AfAm (>60 ml/min/1.73 sqM) Est GFR (CKD-EPI)NonAf (>60 ml/min/1.73 sqM) Glucose (74-99) mg/dL Calcium (8.4-10.2) mg/dL Magnesium (1.6-2.3) mg/dL Total Bilirubin (0.2-1.3) mg/dL AST (14-36) U/L ALT (4-34) U/L Alkaline Phosphatase (38-126) U/L Troponin I 0.039 H* (0.000-0.034) ng/mL Total Protein (6.3-8.2) g/dL Albumin (3.5-5.0) g/dL - Radiology Data Radiology results: image reviewed (Chest x-ray shows unable to exclude fusiform aneurysm mid to lower descending thoracic aorta.) Disposition Clinical Impression: Chest pain Disposition: ADMITTED IP TO THIS HOSP Is patient prescribed a controlled substance at d/c from ED?: No Referrals: Campbell Grove DO [Primary Care Provider] - 1-2 days Decision Time: 14:51
[2019-11-26 13:58] LABS: Basophils % (A) 1 %; Eosinophils % (A) 1 %; HCT 41.9 % (34.0-46.0); HGB 13.3 gm/dL (11.4-16.0); Lymphocytes % (A) 42 %; MCH 27.1 pg (25.0-35.0); MCHC 31.6 g/dL (31.0-37.0); MCV 85.8 fL (80.0-100.0); Mean Platelet Volume 8.7; Monocytes # (A) 0.3 k/uL (0-1.0); Monocytes % (A) 6 %; Neutrophils # (A) 2.4 k/uL (1.3-7.7); Neutrophils % (A) 49 %; Platelet Count 169 k/uL (150-450); RBC 4.88 m/uL (3.80-5.40); RDW 13.5 % (11.5-15.5); WBC 4.8 k/uL (3.8-10.6)
--- NOTE | 2019-11-26 14:04 | XR ---
EXAMINATION TYPE: XR chest 2V DATE OF EXAM: 11/26/2019 COMPARISON: 08/02/2019 HISTORY: 79-year-old female with chest pain TECHNIQUE: PA and lateral views FINDINGS: The cardiomediastinal silhouette and pulmonary vasculature are within normal limits. Focal tortuosit y of the descending thoracic aorta, unable to exclude a 5.6 cm aneurysm of the mid to lower descendin g thoracic aorta on the lateral view. No consolidation or pleural effusion. IMPRESSION: No acute cardiopulmonary process. Unable to exclude a 5.6 cm fusiform aneurysm of the mid to lower de scending thoracic aorta.
[2019-11-26 14:07] LABS: Albumin 4.1 g/dL (3.5-5.0); Magnesium 1.8 mg/dL (1.6-2.3); Potassium 3.2 mmol/L (3.5-5.1); Total Bilirubin 0.7 mg/dL (0.2-1.3)
[2019-11-26 14:30] LABS: D-Dimer 0.37 mg/L FEU (<0.60); Prothrombin Time 10.1 sec (9.0-12.0)
[2019-11-26 14:48] LABS: Partial Thromboplastin Time 21.8 sec (22.0-30.0)
[2019-11-26] MEDS ORDERED: NITROGLYCERIN SL TABS 0.4 MG TAB SUBLINGUAL PRN (14:52)
[2019-11-26] MEDS: NITROGLYCERIN OINT 1 INCH/GM PACKET TOPICAL SCH ×2 (15:26→17:01)
--- NOTE | 2019-11-26 15:52 | CT ---
EXAMINATION TYPE: CT angio thor/abd pel aorta DATE OF EXAM: 11/26/2019 COMPARISON: CT abdomen and pelvis 02/15/2017 HISTORY: 79-year-old female with heart palpitations and heart burn, chest pain, evaluate for thoracic aneurysm. TECHNIQUE: Contiguous axial scanning of the chest, abdomen, and pelvis performed without and with IV Contrast, patient injected with 100 mL of Isovue 370. Coronal/sagittal MIP reconstructions performed. 3-D reconstructions generated on a dedicated independent workstation. CT DLP: 2309.1 mGycm Automated exposure control for dose reduction was used. FINDINGS: CHEST: Nodular enlargement of the thyroid gland. Multiple nodules are present within measuring up to at leas t 1.7 cm. Heart normal size without pericardial effusion. No thoracic lymphadenopathy by CT size criteria. Strandy dependent atelectasis. No consolidation or pleural effusion. ABDOMEN: Small hiatal hernia. Diffuse full thickening within the gastric fundus and proximal body. Multiple hepatic cysts are redemonstrated measuring up to 6.9 cm in the left liver lobe. Portal venou s system is patent. Prominent bile duct measuring 7 mm, unchanged status post cholecystectomy. Adrenal glands, spleen, and pancreas appear within normal limits. Bilateral renal cysts redemonstrated measuring up to 4.0 cm on the right and 3.1 cm on the left. No d ilated small bowel, free fluid, or free air. No mesenteric or retroperitoneal lymphadenopathy. Scattered mild stool. Normal appendix. Some mild circumferential wall thickening of the lower ascendi ng colon, and oblique stool adherent to the colonic wall, axial image 120. No pericolonic inflammator y change. PELVIS: Bladder urine distended. Uterus surgically absent. Neither ovary is visualized. No abnormal fluid col lection in the pelvis or pelvic lymphadenopathy. VASCULATURE: Aortic root 3.1 cm. Ascending thoracic aorta aneurysmal at 4.1 cm. Conventional vessel branching anatomy. Mild atherosclerotic arch calcifications. Upper descending thoracic aorta measures 2.8 cm. There is focal tortuosity of the mid to lower descending thoracic aorta with a 90 degrees bend. Ectas ia here measuring up to 2.6 cm without tena aneurysm, unchanged from 2017. Minimal fusiform dilatation infrarenal abdominal aorta without aneurysm. Mild atherosclerotic calcifi cations infrarenal abdominal aorta and iliac arteries. There is a aneurysm of the right common iliac artery measuring up to 2.3 cm. No evidence for aortic dissection. BONES: Mild degenerative change of the hips. Hypertrophic facet arthropathy mid to lower lumbar spine. Heman gioma within the T9 vertebral body. IMPRESSION: 1. 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 FOCAL TORTUOSITY OF THE DESCENDING THORACIC AORTA WITH A 90 DEGREE BEND. THERE IS ECTASIA HERE MEASURING UP TO 2.6 CM, UNCHANGED FROM 2017 WITHOUT ANEURYSM. 2. 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 3. NO EVIDENCE FOR AORTIC DISSECTION. 4. SMALL HIATAL HERNIA. FOLD THICKENING WITHIN THE GASTRIC FUNDUS AND PROXIMAL BODY. CORRELATE FOR AN Y SYMPTOMS OF GASTRITIS. 5. ADDITIONAL WALL THICKENING OF THE LOWER ASCENDING COLON COULD REFLECT STOOL ADHERENT TO THE COLON WALL. CORRELATE WITH DIRECT VISUALIZATION IF ROUTINE SCREENING COLONOSCOPY IS NOT BEING PERFORMED. 6. MULTIPLE HEPATIC AND RENAL CYSTS MEASURING UP TO 6.9 CM REDEMONSTRATED.
[2019-11-26] MEDS ORDERED: ONDANSETRON 4 MG/2 ML VIAL IVP PRN (18:33)
[2019-11-26] MEDS ORDERED: LACTULOSE 20 GM/30 ML CUP PO PRN (18:33)
[2019-11-26] MEDS ORDERED: CALCIUM CARBONATE 500 MG CHEWABLE PO PRN (18:33)
[2019-11-26] MEDS ORDERED: ALPRAZolam 0.25 MG TAB PO PRN (18:33)
[2019-11-26] MEDS ORDERED: MAGNESIUM HYDROXIDE 2,400 MG/10 ML CUP PO PRN (18:33)
[2019-11-26] MEDS ORDERED: MAG HYDROX/AL HYDROX/SIMETH 30 ML CUP PO PRN (18:33)
[2019-11-26] MEDS ORDERED: MELATONIN 3 MG TABLET PO PRN (18:33)
[2019-11-26] MEDS ORDERED: NALOXONE 0.4 MG/ML 1 ML VIAL IV PRN (18:33)
[2019-11-26] MEDS: PANTOPRAZOLE 40 MG TABLET PO SCH (20:06)
[2019-11-26] MEDS ORDERED: amLODIPine 5 MG TAB PO SCH (21:00)
--- NOTE | 2019-11-26 21:06 | P.HPIM ---
History of Present Illness H&P Date: 11/26/19 Chief Complaint: heartburn History of presenting complaint: This is a very pleasant 79 year old patient of Dr. Grove. Chronic stable medical conditions include , hypertension, hyperlipidemia, anxiety. patient had been progressive reflux symptoms rather severe.patient is here in July of this year. Was put on PPIs to which his symptoms improved. She saw Dr. Nation. Mindi stevenson for a EGD later this month.patient does eat a lot of snacks at home. When I walked in the room she was eating Cheetos.on July of this year she had a left heart catheterization that showed no occlusive disease. After starting PPIs his symptoms again improved. Patient goes for a 3 mile walk every day. She came today felt a burning sensation up in the chest up to the throat. Short of breath. And decided to come in. Had a troponin leak. Admitted for the same Review of systems: GEN.: Tired EYES: None HEENT: None NECK: None RESPIRATORY: None CARDIOVASCULAR: As above GASTROINTESTINAL: As above GENITOURINARY: None MUSCULOSKELETAL: Some pain in the joints] LYMPHATICS: None HEMATOLOGICAL: None PSYCHIATRY: None] NEUROLOGICAL: No focal Past medical history to include: GERD, hyperlipidemia, essential hypertension, anxiety, moderate tricuspid regurgitation, nonocclusive coronaries per cardiac cath Social history: Does not smoke or drink alcohol. Lives by herself. Family: Reviewed, noncontributory to presentation Physical examination: VITAL SIGNS: 98.1, 107, 18, 147 x 81, 98% room air GENERAL: BMI 31, propped up in bed, awake EYES: Pupils equal. Conjunctiva normal. HEENT: External appearance of nose and ears normal, oral cavity grossly normal. NECK: JVD not raised; masses not palpable. HEART: First and second heart sounds are normal; no edema. LUNGS: Respiratory rate normal; clear to auscultation. ABDOMEN: Soft, nontender, liver spleen not palpable, no masses palpable. LYMPHATICS: No lymph nodes palpable in the axilla and neck. PSYCH: Alert and oriented x3; mood and affect normal NEUROLOGICAL: Cranial nerves grossly intact; no facial asymmetry, power and sensation grossly intact. 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 Previous testing: LDL 140 2-D echocardiogram-moderate concentric LVH, EF 55-60%-August 07 Assessment: -Anterior chest wall pressure probably due to esophageal spasm secondary to esophagitis.at the same time positive troponins are concerning. Cardiac catheterization in July of this year did not show any critical stenosis.also noticed ST segment depression in leads 1 aVL and V2 through V6. Patient May haver had a plaque rupture. -GERD exacerbation -Hyperlipidemia -Essential hypertension -Obesity BMI 31 -Anxiety not otherwise specified Plan: Will continue patient's PPI and home medications. Cardiology's been consulted.repeat admitted echocardiogramto check for any wall motion abnormality. Discussed with the patient. Advice about diet.keep the patient nothing by mouth after midnight. Put the patient on IV heparin. Past Medical History Past Medical History: GERD/Reflux, Hyperlipidemia, Hypertension, Liver Disease Additional Past Medical History / Comment(s): cysts on liver. 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 History of Any Multi-Drug Resistant Organisms: None Reported Past Surgical History: Cholecystectomy, Hernia Repair, Hysterectomy, Orthopedic Surgery Additional Past Surgical History / Comment(s): rotator cuff left shoulder, her srinath repair-R inguinal and ventral , lypoma removal Past Anesthesia/Blood Transfusion Reactions: No Reported Reaction Past Psychological History: No Psychological Hx Reported Smoking Status: Former smoker Past Alcohol Use History: None Reported Additional Past Alcohol Use History / Comment(s): STARTED SMOKING AT AGE 20 QUIT AT AGE 36 SMOKED 1 PACK PER WEEK Past Drug Use History: None Reported - Past Family History Mother Family Medical History: No Reported History Medications and Allergies Home Medications Medication Instructions Recorded Confirmed Type Olmesartan/Hydrochlorothiazide 1 tab PO DAILY 09/07/18 11/26/19 History [Benicar Hct 20-12.5 mg Tablet] amLODIPine [Norvasc] 5 mg PO HS #30 tab 09/09/18 11/26/19 Rx ALPRAZolam [Xanax] 0.25 mg PO TID PRN 11/26/19 11/26/19 History Omeprazole [PriLOSEC] 20 mg PO BID-W/MEALS 11/26/19 11/26/19 History Allergies Allergy/AdvReac Type Severity Reaction Status Date / Time aspirin AdvReac Nausea & Verified 11/26/19 18:11 Vomiting atorvastatin [From Lipitor] AdvReac MUSCLE Verified 11/26/19 18:11 PAIN W/HIGH DOSES Physical Exam Vitals: Vital Signs Temp Pulse Pulse Resp BP BP Pulse Ox 11/26/19 15:27 97.9 F 79 16 108/83 100 11/26/19 15:22 97.9 F 80 16 119/87 96 11/26/19 14:34 98.2 F 88 18 119/85 97 11/26/19 13:07 98.1 F 107 H 18 147/81 98 Intake and Output 11/26/19 11/26/19 11/26/19 06:59 14:59 22:59 Intake Total 120 Output Total 230 Balance -110 Intake: Oral 120 Output: Urine 230 Other: # Voids 1 Weight 89.811 kg 89.811 kg Results CBC & Chem 7: 11/26/19 13:36 11/26/19 13:36 Labs: Abnormal Lab Results - Last 24 Hours (Table) 11/26/19 11/26/19 11/26/19 Range/Units 13:36 13:36 13:36 APTT 21.8 L (22.0-30.0) sec Potassium 3.2 L (3.5-5.1) mmol/L Glucose 132 H (74-99) mg/dL Troponin I 0.039 H* (0.000-0.034) ng/mL 11/26/19 11/26/19 Range/Units 16:09 18:32 APTT (22.0-30.0) sec Potassium (3.5-5.1) mmol/L Glucose (74-99) mg/dL Troponin I 0.046 H* 0.037 H* (0.000-0.034) ng/mL Thrombosis Risk Factor Assmnt - Choose All That Apply Each Factor Represents 1 point: Obesity (BMI >25) Each Risk Factor Represents 3 Points: Age 75 years or older Thrombosis Risk Factor Assessment Total Risk Factor Score: 4 Thrombosis Risk Factor Assessment Level: Moderate Risk
[2019-11-26] MEDS ORDERED: ASPIRIN 81 MG PO STA (21:08)
[2019-11-26] MEDS ORDERED: HEPARIN SODIUM,PORCINE 5,000 UNIT/ML 1 ML VIAL IV PRN (21:19)
[2019-11-26] MEDS ORDERED: HEPARIN SODIUM,PORCINE 5,000 UNIT/ML 1 ML VIAL IV ONE (21:19)
[2019-11-26] MEDS ORDERED: HEPARIN SOD,PORK IN 0.45% NACL 25,000 UNIT in 0.45% NACL 1 250ML.BAG IV SCH (21:30)
[2019-11-26] MEDS: ACETAMINOPHEN TAB 325 MG TAB PO PRN (21:45)
[2019-11-26 22:03] LABS: Partial Thromboplastin Time 22.1 sec (22.0-30.0); Prothrombin Time 10.3 sec (9.0-12.0)
[2019-11-26] MEDS: CALCIUM CARBONATE 500 MG CHEWABLE PO SCH (22:43)
[2019-11-27] MEDS: NITROGLYCERIN OINT 1 INCH/GM PACKET TOPICAL SCH ×2 (00:19→06:48)
[2019-11-27] MEDS: ACETAMINOPHEN TAB 325 MG TAB PO PRN (03:21)
[2019-11-27 03:43] LABS: Cholesterol 158 mg/dL (<200); HDL Cholesterol 43 mg/dL (40-60); LDL Cholesterol,Calculated 104 mg/dL (0-99); Triglycerides 55 mg/dL (<150)
[2019-11-27] MEDS: PANTOPRAZOLE 40 MG TABLET PO SCH (07:04)
[2019-11-27] MEDS: CALCIUM CARBONATE 500 MG CHEWABLE PO SCH (07:05)
[2019-11-27 08:45] VITALS: BP 125/84; PULSE 77; RESP 16; TEMP 98
[2019-11-27] MEDS ORDERED: HYDROCHLOROTHIAZIDE PO SCH (09:00)
[2019-11-27] MEDS ORDERED: OLMESARTAN PO SCH (09:00)
[2019-11-27] MEDS ORDERED: LOSARTAN 50 MG TAB PO SCH (09:00)
[2019-11-27] MEDS ORDERED: [UNRECOGNIZED DRUG - OTHER] PO SCH (09:00)
[2019-11-27] MEDS ORDERED: ASPIRIN 81 MG PO SCH (09:00)
[2019-11-27] MEDS ORDERED: hydroCHLOROthiazide 12.5 MG CAP PO SCH (09:00)
[2019-11-27] MEDS ORDERED: POTASSIUM CHLORIDE ER 20 MEQ TAB.ER PO STA (10:18)
--- NOTE | 2019-11-27 10:48 | P.CRDCN ---
History of Present Illness Consult date: 11/27/19 History of present illness: CHIEF COMPLAINT: Chest pain HISTORY OF PRESENT ILLNESS: 79-year-old female with a history of GERD, hyperlipidemia, and hypertension who presented to emergency room with a chief complaint of chest pain. Patient follows up outpatient with Dr. Shannon. She went a cardiac catheterization in July 2019 which she got reveal any critical coronary artery disease. Patient was placed on a PPI at that time and is scheduled for an EGD this month with Dr. Wilson. Patient examined this morning at the bedside. She states she began having indigestion yesterday in her throat and the epigastric region. She denied shortness of breath. She states she was unable to eat anything yesterday secondary to heartburn but states the night before she had a large meal consisting of CABG, chicken, macaroni and cheese, and cornbread. States her symptoms have improved this morning. DIAGNOSTICS: EKG reveals sinus tachycardia. Chest xray no acute cardiopulmonary process Laboratory data: WBC 4.8. Hemoglobin 13.3. Platelet count 169. D-dimer 0.37. Sodium 140. Potassium 3.2. BUN 15. Creatinine 0.97. Troponin 0.039. 0.046. 0.037. Current home cardiac medications include Benicar 20-12.5mg and Norvasc 5 mg daily Echocardiogram completed in July 2019 revealed ejection fraction between 55 and 60% REVIEW OF SYSTEMS: CONSTITUTIONAL: Denies fever or chills. HEENT: Denies blurred vision, vision changes, or eye pain. Denies hemoptysis CARDIOVASCULAR: Denies chest pain, orthopnea, PND or palpitations RESPIRATORY: No shortness of breath. GASTROINTESTINAL: Denies abdominal pain. Denies nausea or vomiting. Reports heartburn HEMATOLOGIC: Denies bleeding disorders. GENITOURINARY: Denies any blood in urine. SKIN: Denies pruitis. Denies rash. PHYSICAL EXAM: VITAL SIGNS: Reviewed. GENERAL: Well-developed in no acute distress. HEENT: Head is normocephalic. Pupils are equal, round. Sclerae anicteric. Mucous membranes of the mouth are moist. Neck supple. No JVD or thyromegaly LUNGS: Respirations even and unlabored. Lungs essentially clear to auscultation bilaterally. HEART: Regular rate and rhythm. S1 and S2 heard. ABDOMEN: Soft. Nondistended. Nontender. EXTREMITIES: Normal range of motion. No clubbing or cyanosis. Peripheral pulses intact. No lower extremity edema NEUROLOGIC: Awake and alert. Oriented x 3. ASSESSMENT: Atypical chest pain, suspect secondary to GERD Abnormal troponins of unclear clinical significance Hypertension Hyperlipidemia Obesity: BMI 32.7 PLAN: Patient's chest discomfort appears to be related to her GERD. No need to repeat cardiac catheterization at this time. Patient is scheduled for EGD later this month with Dr. Wilson Discontinue IV heparin court recording monitor reviewed with no visualized arrhythmias noted Patient may follow up outpatient with Dr. Shannon and have an event monitor placed on an outpatient basis to look for any arrhythmias Nurse practitioner note has been reviewed by physician. Signing provider agrees with the documented findings, assessment, and plan of care. Past Medical History Past Medical History: GERD/Reflux, Hyperlipidemia, Hypertension, Liver Disease Additional Past Medical History / Comment(s): cysts on liver. 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 History of Any Multi-Drug Resistant Organisms: None Reported Past Surgical History: Cholecystectomy, Hernia Repair, Hysterectomy, Orthopedic Surgery Additional Past Surgical History / Comment(s): rotator cuff left shoulder, hernia repair-R inguinal and ventral , lypoma removal Past Anesthesia/Blood Transfusion Reactions: No Reported Reaction Past Psychological History: No Psychological Hx Reported Smoking Status: Former smoker Past Alcohol Use History: None Reported Additional Past Alcohol Use History / Comment(s): STARTED SMOKING AT AGE 20 QUIT AT AGE 36 SMOKED 1 PACK PER WEEK Past Drug Use History: None Reported - Past Family History Mother Family Medical History: No Reported History Medications and Allergies Home Medications Medication Instructions Recorded Confirmed Type Olmesartan/Hydrochlorothiazide 1 tab PO DAILY 09/07/18 11/26/19 History [Benicar Hct 20-12.5 mg Tablet] amLODIPine [Norvasc] 5 mg PO HS #30 tab 09/09/18 11/26/19 Rx ALPRAZolam [Xanax] 0.25 mg PO TID PRN 11/26/19 11/26/19 History Omeprazole [PriLOSEC] 20 mg PO BID-W/MEALS 11/26/19 11/26/19 History Potassium Chloride ER [K-Dur 20] 20 meq PO DAILY #30 tab 11/27/19 Rx Allergies Allergy/AdvReac Type Severity Reaction Status Date / Time aspirin AdvReac Nausea & Verified 11/26/19 18:11 Vomiting atorvastatin [From Lipitor] AdvReac MUSCLE Verified 11/26/19 18:11 PAIN W/HIGH DOSES Physical Exam Vitals: Vital Signs Temp Pulse Pulse Resp BP BP Pulse Ox 11/27/19 08:44 98.0 F 77 16 125/84 97 11/27/19 04:00 73 18 121/76 99 11/27/19 00:00 85 20 122/68 100 11/26/19 20:00 98 F 72 18 119/72 99 11/26/19 15:27 97.9 F 79 16 108/83 100 11/26/19 15:22 97.9 F 80 16 119/87 96 11/26/19 14:34 98.2 F 88 18 119/85 97 11/26/19 13:07 98.1 F 107 H 18 147/81 98 Intake and Output 11/26/19 11/27/19 11/27/19 22:59 06:59 14:59 Intake Total 120 163.555 36.643 Output Total 230 Balance -110 163.555 36.643 Intake: Intake, IV Titration 63.555 36.643 Amount Heparin Sod,Pork in 0.45% 63.555 36.643 NaCl 25,000 unit In 0.45 % NaCl 1 250ml.bag @ 11 UNITS/KG/HR 9.879 mls/hr IV .Q24H [facility] Rx#: [id number] Oral 120 100 Output: Urine 230 Other: Voiding Method Toilet Toilet Toilet # Voids 1 1 3 Weight 89.811 kg 94.7 kg Results 11/26/19 13:36 11/26/19 13:36 Cardiac Enzymes 11/26/19 11/26/19 11/26/19 Range/Units 13:36 13:36 16:09 AST 25 (14-36) U/L Troponin I 0.039 H* 0.046 H* (0.000-0.034) ng/mL 11/26/19 Range/Units 18:32 AST (14-36) U/L Troponin I 0.037 H* (0.000-0.034) ng/mL Coagulation 11/26/19 11/26/19 11/27/19 Range/Units 13:36 21:35 03:14 PT 10.1 10.3 (9.0-12.0) sec APTT 21.8 L 22.1 81.5 H (22.0-30.0) sec 11/27/19 Range/Units 07:49 PT (9.0-12.0) sec APTT 86.7 H (22.0-30.0) sec Lipids 11/27/19 Range/Units 03:14 Triglycerides 55 (<150) mg/dL Cholesterol 158 (<200) mg/dL HDL Cholesterol 43 (40-60) mg/dL CBC 11/26/19 Range/Units 13:36 WBC 4.8 (3.8-10.6) k/uL RBC 4.88 (3.80-5.40) m/uL Hgb 13.3 (11.4-16.0) gm/dL Hct 41.9 (34.0-46.0) % Plt Count 169 (150-450) k/uL Comprehensive Metabolic Panel 11/26/19 Range/Units 13:36 Sodium 140 (137-145) mmol/L Potassium 3.2 L (3.5-5.1) mmol/L Chloride 104 (98-107) mmol/L Carbon Dioxide 28 (22-30) mmol/L BUN 15 (7-17) mg/dL Creatinine 0.97 (0.52-1.04) mg/dL Glucose 132 H (74-99) mg/dL Calcium 10.0 (8.4-10.2) mg/dL AST 25 (14-36) U/L ALT 16 (4-34) U/L Alkaline Phosphatase 88 (38-126) U/L Total Protein 7.0 (6.3-8.2) g/dL Albumin 4.1 (3.5-5.0) g/dL Current Medications Generic Name Dose Route Start Last Admin Trade Name Freq PRN Reason Stop Dose Admin Acetaminophen 650 mg 11/26/19 18:33 11/27/19 03:21 Tylenol Tab PO 650 mg Q6HR PRN Administration Mild Pain or Fever > 100.5 Al Hydroxide/Mg Hydroxide 15 ml 11/26/19 18:33 Maalox PO Q6HR PRN Indigestion Alprazolam 0.25 mg 11/26/19 18:33 Xanax PO TID PRN Anxiety Amlodipine Besylate 5 mg 11/26/19 21:00 11/26/19 20:06 Norvasc PO 5 mg HS [facility] Administration Calcium Carbonate/Glycine 1,000 mg 11/26/19 18:33 Tums PO Q4HR PRN Dyspepsia Calcium Carbonate/Glycine 500 mg 11/26/19 21:08 11/27/19 07:05 Tums PO 500 mg ACHS [facility] Administration Heparin Sodium (Porcine) 0 unit 11/26/19 21:19 Heparin IV PER PROTOCOL PRN Low PTT Protocol Hydrochlorothiazide 12.5 mg 11/27/19 09:00 11/27/19 08:37 Hydrodiuril PO 12.5 mg DAILY [facility] Administration Lactulose 20 gm 11/26/19 18:33 Cephulac PO DAILY PRN Constipation Losartan Potassium 100 mg 11/27/19 09:00 11/27/19 08:37 Cozaar PO 100 mg DAILY [facility] Administration Magnesium Hydroxide 2,400 mg 11/26/19 18:33 Milk Of Magnesia PO DAILY PRN Constipation Melatonin 3 mg 11/26/19 18:33 Melatonin PO HS PRN Insomnia Naloxone HCl 0.2 mg 11/26/19 18:33 Narcan IV Q2M PRN Opioid Reversal Nitroglycerin 0.4 mg 11/26/19 14:52 Nitrostat SUBLINGUAL Q5M PRN Chest Pain Nitroglycerin 1 inch 11/26/19 15:00 11/27/19 06:48 Nitro-Bid Oint TOPICAL Not Given Q6HR [facility] Ondansetron HCl 4 mg 11/26/19 18:33 Zofran IVP Q8HR PRN Nausea And Vomiting Pantoprazole Sodium 40 mg 11/26/19 18:45 11/27/19 07:04 Protonix PO 40 mg BID-W/MEALS [facility] Administration Intake and Output 11/26/19 11/27/19 11/27/19 22:59 06:59 14:59 Intake Total 120 163.555 36.643 Output Total 230 Balance -110 163.555 36.643 Intake: Intake, IV Titration 63.555 36.643 Amount Heparin Sod,Pork in 0.45% 63.555 36.643 NaCl 25,000 unit In 0.45 % NaCl 1 250ml.bag @ 11 UNITS/KG/HR 9.879 mls/hr IV .Q24H [facility] Rx#: [id number] Oral 120 100 Output: Urine 230 Other: Voiding Method Toilet Toilet Toilet # Voids 1 1 3 Weight 89.811 kg 94.7 kg 11/26/19 13:36 11/26/19 13:36
--- NOTE | 2019-11-27 10:59 | P.DS ---
Providers Date of admission: 11/26/19 14:52 Attending physician: Nino Trinh Consults: 11/26/19 14:52 Consult Physician Urgent Consulting Provider: Daniella Shannon Consult Reason/Comments: chest discomfort, ct ordered Do you want consulting provider notified?: Yes Primary care physician: [facility] Hospital Course: Patient was admitted for with chest pain appeared to be atypical and noncardiac because of which cardiology cleared her for discharge and the patient chest pain appears to be secondary to gastroesophageal reflux disease. Patient's symptoms improved patient is already on Prilosec twice a day at home which will be continued patient is bright mildly hypokalemic secondary to hydrochlorothiazide, patient's potassium will be replaced and patient will be given prescription for potassium patient basic metabolic profile need to be tested when she sees her primary care physician. Patient will be discharged today. PHYSICAL EXAMINATION: GENERAL: The patient is alert and oriented x3, not in any acute distress. Well developed, well nourished. HEENT: Pupils are round and equally reacting to light. EOMI. No scleral icterus. No conjunctival pallor. Normocephalic, atraumatic. No pharyngeal erythema. No thyromegaly. CARDIOVASCULAR: S1 and S2 present. No murmurs, rubs, or gallops. PULMONARY: Chest is clear to auscultation, no wheezing or crackles. ABDOMEN: Soft, nontender, nondistended, normoactive bowel sounds. No palpable organomegaly. MUSCULOSKELETAL: No joint swelling or deformity. EXTREMITIES: No cyanosis, clubbing, or pedal edema. NEUROLOGICAL: Gross neurological examination did not reveal any focal deficits. SKIN: No rashes. For rest of the medical problems and hospitalization course please refer to history and physical from Dr. Trinh Patient Condition at Discharge: Good Plan - Discharge Summary New Discharge Prescriptions: New Potassium Chloride ER [K-Dur 20] 20 meq PO DAILY #30 tab No Action Olmesartan/Hydrochlorothiazide [Benicar Hct 20-12.5 mg Tablet] 1 tab PO DAILY amLODIPine [Norvasc] 5 mg PO HS #30 tab Omeprazole [PriLOSEC] 20 mg PO BID-W/MEALS ALPRAZolam [Xanax] 0.25 mg PO TID PRN PRN Reason: Anxiety Discharge Medication List Olmesartan/Hydrochlorothiazide [Benicar Hct 20-12.5 mg Tablet] 1 tab PO DAILY 09/07/18 [History] amLODIPine [Norvasc] 5 mg PO HS #30 tab 09/09/18 [Rx] ALPRAZolam [Xanax] 0.25 mg PO TID PRN 11/26/19 [History] Omeprazole [PriLOSEC] 20 mg PO BID-W/MEALS 11/26/19 [History] Potassium Chloride ER [K-Dur 20] 20 meq PO DAILY #30 tab 11/27/19 [Rx] Follow up Appointment(s)/Referral(s): Campbell Grove DO [Primary Care Provider] - 3 Days Discharge Disposition: HOME SELF-CARE
== END 2019-11-27 12:36 | disposition home or self-care (01) ==
LOC: EC 13:02 → 3SCARD 14:52
PROVIDERS: ADMIT Hospitalist; ATTEND Hospitalist
DX: R07.89 Other chest pain (principal); R79.89 Other specified abnormal findings of blood chemistry; K21.9 Gastro-esophageal reflux disease without esophagitis; E87.6 Hypokalemia; T50.2X5A Adverse effect of carbonic-anhydrase inhibitors, benzothiadiazides and other diuretics, initial encounter; I10 Essential (primary) hypertension; E78.5 Hyperlipidemia, unspecified; K76.89 Other specified diseases of liver; R00.0 Tachycardia, unspecified; I71.2 Thoracic aortic aneurysm, without rupture; I72.3 Aneurysm of iliac artery; N28.1 Cyst of kidney, acquired; F41.9 Anxiety disorder, unspecified; I07.1 Rheumatic tricuspid insufficiency; E66.9 Obesity, unspecified; Z68.32 Body mass index [BMI] 32.0-32.9, adult; Z79.899 Other long term (current) drug therapy; Z88.6 Allergy status to analgesic agent; Z88.8 Allergy status to other drugs, medicaments and biological substances; Z90.49 Acquired absence of other specified parts of digestive tract; Z90.710 Acquired absence of both cervix and uterus; Z87.891 Personal history of nicotine dependence; Z98.890 Other specified postprocedural states; Z86.018 Personal history of other benign neoplasm
CPT/HCPCS: 96376; 96365; 96366 ×2; 93005 ×2; 96375; 99285; 36415; 85379; 80061; 80053; 83735; 84484; 85025; 85610; 85730 ×2; 71046; 71275; 74174; G0378 ×2; J2060; J1644 ×2; Q9967

== ENCOUNTER 2019-12-06 07:50 | Day surgery (SDC) | payer MEDICARE ==
[2019-12-04 11:18] VITALS: BMI 31.0
[~2019-12-06 07:50] MED LIST changes: -DEXAMETHASONE SOD PHOSPHATE 10 MG/ML 1 ML VIAL IV ONE; -HEPARIN SODIUM,PORCINE 5,000 UNIT/ML 1 ML VIAL SQ ONE; -MORPHINE SULFATE 4 MG/ML SYRINGE IV PRN; -ONDANSETRON 4 MG/2 ML VIAL IVP ONE; -ceFAZolin IN SWFI 2 GM/20 ML SYRINGE IVP ONE
[2019-12-06 08:07] VITALS: TEMP 97.4
[2019-12-06] MEDS ORDERED: LIDOCAINE 1% (10MG/ML) FOR IV START INTRADERMA ONE (08:18)
[2019-12-06] MEDS ORDERED: PROPOFOL 10 MG/ML 20 ML VIAL IV ONE (08:46)
[2019-12-06] MEDS ORDERED: LIDOCAINE 1% INJ 10MG/ML (20 ML MDV) ONE (08:46)
--- NOTE | 2019-12-06 09:05 | P.PCN ---
Date of Procedure: 12/06/19 Description of Procedure: BRIEF HISTORY: Patient is a 79-year-old female presenting for outpatient EGD for evaluation of GERD. Patient has long-standing history of reflux disease. She has also had problems with diarrhea after having her cholecystectomy. Currently on PPI therapy. PROCEDURE PERFORMED: Esophagogastroduodenoscopy with biopsy. PREOPERATIVE DIAGNOSIS: GERD, epigastric abdominal pain. ESTIMATED BLOOD LOSS: Minimal. IV sedation per anesthesia. PROCEDURE: After informed consent was obtained, the patient was brought into the endoscopy unit. IV sedation was administered by Anesthesia under continuous monitoring. Initially the Olympus GIF-190 video endoscope was inserted into the mouth. Esophagus intubated without any difficulty. It was gradually advanced into the stomach and duodenum and carefully examined. The bulb and the second part of the duodenum appeared normal, with biopsies taken. The scope at this time was withdrawn to the stomach, adequately insufflated with air, and upon careful examination, mucosa of the antrum, body, cardia and the fundus appeared normal, except for some mild scattered erythema in the antrum and body suggestive of mild gastritis with biopsies of the antrum and body taken. The scope was then withdrawn into the esophagus. The GE junction was located at 38 cm from the incisors, biopsied. 2 cm hiatal hernia noted. The esophagus appeared normal. There were no erosions or ulcerations seen and the patient tolerated the procedure well. IMPRESSION: 1. Mild gastritis. 2. Small hiatal hernia. 3. Biopsies of the duodenum, antrum and body and GE junction. RECOMMENDATIONS: The findings of this examination were discussed with the patient and her family. Okay to resume diet. Okay to resume medication. Await pathology from biopsies. Follow up in GI clinic as previously scheduled.
[2019-12-06 09:10] VITALS: RESP 16
[2019-12-06 09:17] VITALS: BP 134/79; PULSE 77
== END 2019-12-06 09:58 | disposition home or self-care (01) ==
LOC: ORWHC2ENDO 07:50
PROVIDERS: ATTEND Internal Medicine
DX: K21.9 Gastro-esophageal reflux disease without esophagitis (principal); K29.50 Unspecified chronic gastritis without bleeding; K44.9 Diaphragmatic hernia without obstruction or gangrene; I10 Essential (primary) hypertension; E78.5 Hyperlipidemia, unspecified; I49.9 Cardiac arrhythmia, unspecified; F41.9 Anxiety disorder, unspecified; K76.89 Other specified diseases of liver; Z87.891 Personal history of nicotine dependence; Z88.6 Allergy status to analgesic agent; Z88.8 Allergy status to other drugs, medicaments and biological substances; Z90.49 Acquired absence of other specified parts of digestive tract; Z98.890 Other specified postprocedural states; Z79.899 Other long term (current) drug therapy
CPT/HCPCS: 88305; 43239; J2001; J2704

== ENCOUNTER → 2020-11-25 | Outpatient (CLI) | payer MEDICARE ==
--- NOTE | 2020-11-25 15:14 | CT ---
EXAMINATION TYPE: CT angio chest DATE OF EXAM: 11/25/2020 2:49 PM COMPARISON: Prior CTA November 26, 2019 HISTORY: Thoracic aortic aneurysm. CT DLP: 557.7 mGycm Automated exposure control for dose reduction was used. CONTRAST: CTA scan of the thorax is performed without and with IV Contrast, patient injected with 80 mL of Isov ue 370, aneurysm protocol. 3D reconstructed images are created on an independent workstation and rev iewed.. FINDINGS: LUNGS: Mild bibasilar linear scarring and/or atelectasis redemonstrated. No pleural effusion or pneum othorax seen. No concerning masses. MEDIASTINUM: There is satisfactory enhancement of the central pulmonary arteries. Noncontrast images show no suspicious hyperdensity to suggest intramural hematoma. Ascending aorta measures up to 4.1 cm sagittal image 65. Persistent normal three-vessel origin from aortic arch. Prominent and slightly ec tatic descending thoracic aorta redemonstrated. Descending thoracic aorta measures 2.8 cm in diameter similar to prior. There are no new greater than 1 cm hilar or mediastinal lymph nodes. No cardiome ailyn or pericardial effusion is seen. Coronary artery calcification redemonstrated. OTHER: Scattered hypodense lesions consistent with benign thin-walled cysts throughout the liver. Si mple appearing thin-walled cyst rupture slight portion of right kidney. Cholecystectomy clips. Korey ioma involving T9 vertebra. IMPRESSION: Stable ascending aortic aneurysm up to 4.1 cm.
== END | disposition home or self-care (01) ==
LOC: RADCTMAIN 12:51
PROVIDERS: ATTEND Surgery
DX: I71.2 Thoracic aortic aneurysm, without rupture (principal)
CPT/HCPCS: 82565; 84520; 71275; 36415; Q9967

== ENCOUNTER → 2021-03-16 | Outpatient (CLI) | payer MEDICARE ==
--- NOTE | 2021-03-16 09:56 | US ---
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 Palpable lump RUQ Scanned RUQ at patients palpable lump: 4.4 x 1.8 x 4.8cm superficial isoechoic area seen. This appea rs to be in the subcutaneous tissue. Findings are nonspecific. Lipoma could be considered. CT abdomen could be performed if additional evaluation would be of benefit. IMPRESSION: 1. Subcutaneous lipoma may be present at the palpable region. Please see above discussion
== END | disposition home or self-care (01) ==
LOC: RADUSWWP 09:27
PROVIDERS: ATTEND Family Medicine
DX: D17.79 Benign lipomatous neoplasm of other sites (principal)
CPT/HCPCS: 76705

== ENCOUNTER 2021-04-07 22:28 | Emergency (ER) | payer MEDICARE ==
[2021-04-07 22:51] VITALS: TEMP 97.9
[2021-04-08] MEDS ORDERED: SODIUM CHLORIDE 0.9% 1,000 ML IV STA (01:49)
[2021-04-08 01:51] VITALS: RESP 18
--- NOTE | 2021-04-08 02:06 | ED ---
General Adult HPI - General Chief complaint: Recheck/Abnormal Lab/Rx Stated complaint: Abdominal bleeding and stinging Time Seen by Provider: 04/08/21 01:27 Source: patient Mode of arrival: ambulatory Limitations: no limitations - History of Present Illness Initial comments: 80-year-old female presents to the emergency room for a chief complaint of drai nage from her umbilicus. Patient states it started a couple days ago. States it is a little bit painful. Patient has had a laparoscopic cholecystectomy in the past where they went through her [facility]. Patient denies abdominal pain. Denies fevers.Patient has no other complaints at this time including shortness of breath, chest pain, abdominal pain, nausea or vomiting, headache, or visual changes. - Related Data Home Medications Medication Instructions Recorded Confirmed Olmesartan/Hydrochlorothiazide 1 tab PO DAILY 09/07/18 12/04/19 [Benicar Hct 20-12.5 mg Tablet] ALPRAZolam [Xanax] 0.25 mg PO TID PRN 11/26/19 12/04/19 Omeprazole [PriLOSEC] 20 mg PO BID-W/MEALS 11/26/19 12/04/19 Multivitamins, Thera [Multivitamin 1 tab PO DAILY 12/04/19 12/04/19 (formulary)] Previous Rx's Medication Instructions Recorded amLODIPine [Norvasc] 5 mg PO HS #30 tab 09/09/18 Potassium Chloride ER [K-Dur 20] 20 meq PO DAILY #30 tab 11/27/19 Cephalexin [Keflex] 500 mg PO Q6HR 10 Days #40 cap 04/08/21 Mupirocin 2% Oint [Bactroban 2% 1 applic TOPICAL TID 5 Days #22 gm 04/08/21 Oint] Sulfamethox-Tmp 800-160Mg [Bactrim 1 tab PO Q12HR #20 tab 04/08/21 DS 800-160 mg] Allergies Allergy/AdvReac Type Severity Reaction Status Date / Time aspirin AdvReac Nausea & Verified 04/07/21 22:51 Vomiting atorvastatin [From Lipitor] AdvReac MUSCLE Verified 04/07/21 22:51 PAIN W/HIGH DOSES Review of Systems ROS Statement: Those systems with pertinent positive or pertinent negative responses have been documented in the HPI. ROS Other: All systems not noted in ROS Statement are negative. Past Medical History Past Medical History: GERD/Reflux, Hyperlipidemia, Hypertension, Liver Disease Additional Past Medical History / Comment(s): cysts on liver. 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 History of Any Multi-Drug Resistant Organisms: None Reported Past Surgical History: Cholecystectomy, Hernia Repair, Hysterectomy, Orthopedic Surgery Additional Past Surgical History / Comment(s): rotator cuff left shoulder, hernia repair-R inguinal and ventral , lypoma removal Past Anesthesia/Blood Transfusion Reactions: No Reported Reaction Past Psychological History: No Psychological Hx Reported Smoking Status: Former smoker Past Alcohol Use History: None Reported Past Drug Use History: None Reported - Past Family History Mother Family Medical History: No Reported History General Exam Limitations: no limitations General appearance: alert, in no apparent distress Head exam: Present: atraumatic Eye exam: Present: normal appearance, PERRL, EOMI. Absent: scleral icterus, conjunctival injection ENT exam: Present: normal exam, mucous membranes moist Neck exam: Present: normal inspection, full ROM. Absent: tenderness Respiratory exam: Present: normal lung sounds bilaterally. Absent: respiratory distress, wheezes Cardiovascular Exam: Present: regular rate, normal rhythm, normal heart sounds GI/Abdominal exam: Present: soft, normal bowel sounds, other (Patient has slight purulent drainage coming from umbilicus). Absent: distended, tenderness, guarding, rebound, rigid Course Vital Signs 04/07/21 04/08/21 04/08/21 22:48 01:45 02:15 Temperature 97.9 F Pulse Rate 112 H 80 71 Respiratory 20 18 18 Rate Blood Pressure 112/68 119/83 113/82 O2 Sat by Pulse 98 98 98 Oximetry Medical Decision Making - Medical Decision Making vitals Stable. CBC CMP unremarkable. CT abdomen and pelvis shows no adverse change compared to the old exam. There is cutaneous density at the umbilicus slightly increased could be related to inflammatory process at umbilicus. This could also be referring to patient's keloids. At this time we will start patient on Keflex and Bactrim and Bactroban. She will follow-up with her doctor. She'll return here for any worsening symptoms. - Lab Data Result diagrams: 04/08/21 02:14 04/08/21 02:14 Lab Results 04/08/21 04/08/21 Range/Units 02:14 02:14 WBC 5.6 (3.8-10.6) k/uL RBC 4.48 (3.80-5.40) m/uL Hgb 12.7 (11.4-16.0) gm/dL Hct 40.4 (34.0-46.0) % MCV 90.1 (80.0-100.0) fL MCH 28.4 (25.0-35.0) pg MCHC 31.5 (31.0-37.0) g/dL RDW 13.5 (11.5-15.5) % Plt Count 166 (150-450) k/uL MPV 9.1 Neutrophils % 55 % Lymphocytes % 33 % Monocytes % 8 % Eosinophils % 2 % Basophils % 1 % Neutrophils # 3.0 (1.3-7.7) k/uL Lymphocytes # 1.9 (1.0-4.8) k/uL Monocytes # 0.4 (0-1.0) k/uL Eosinophils # 0.1 (0-0.7) k/uL Basophils # 0.1 (0-0.2) k/uL Hypochromasia Slight Sodium 136 L (137-145) mmol/L Potassium 4.0 (3.5-5.1) mmol/L Chloride 102 (98-107) mmol/L Carbon Dioxide 29 (22-30) mmol/L Anion Gap 5 mmol/L BUN 28 H (7-17) mg/dL Creatinine 1.17 H (0.52-1.04) mg/dL Est GFR (CKD-EPI)AfAm 52 (>60 ml/min/1.73 sqM) Est GFR (CKD-EPI)NonAf 45 (>60 ml/min/1.73 sqM) Glucose 99 (74-99) mg/dL Calcium 9.9 (8.4-10.2) mg/dL Total Bilirubin 0.6 (0.2-1.3) mg/dL AST 27 (14-36) U/L ALT 16 (4-34) U/L Alkaline Phosphatase 86 (38-126) U/L Total Protein 7.4 (6.3-8.2) g/dL Albumin 4.1 (3.5-5.0) g/dL Disposition Clinical Impression: Umbilicus discharge Disposition: HOME SELF-CARE Condition: Good Instructions (If sedation given, give patient instructions): Cellulitis (ED) Additional Instructions: Take medications as directed. Follow-up with your doctor. Return to the emergency room for any worsening symptoms. Prescriptions: Sulfamethox-Tmp 800-160Mg [Bactrim DS 800-160 mg] 1 tab PO Q12HR #20 tab Mupirocin 2% Oint [Bactroban 2% Oint] 1 applic TOPICAL TID 5 Days #22 gm Cephalexin [Keflex] 500 mg PO Q6HR 10 Days #40 cap Is patient prescribed a controlled substance at d/c from ED?: No Referrals: [place] DO [Primary Care Provider] - 1-2 days Time of Disposition: 03:24
[2021-04-08 02:37] LABS: Basophils # (A) 0.1 k/uL (0-0.2); Basophils % (A) 1 %; Eosinophils # (A) 0.1 k/uL (0-0.7); Eosinophils % (A) 2 %; HCT 40.4 % (34.0-46.0); HGB 12.7 gm/dL (11.4-16.0); Hypochromasia Slight; Lymphocytes # (A) 1.9 k/uL (1.0-4.8); Lymphocytes % (A) 33 %; MCH 28.4 pg (25.0-35.0); MCHC 31.5 g/dL (31.0-37.0); MCV 90.1 fL (80.0-100.0); Mean Platelet Volume 9.1; Monocytes # (A) 0.4 k/uL (0-1.0); Monocytes % (A) 8 %; Neutrophils % (A) 55 %; Platelet Count 166 k/uL (150-450); RBC 4.48 m/uL (3.80-5.40); RDW 13.5 % (11.5-15.5); WBC 5.6 k/uL (3.8-10.6)
[2021-04-08 02:39] LABS: Albumin 4.1 g/dL (3.5-5.0); Calcium 9.9 mg/dL (8.4-10.2); Total Bilirubin 0.6 mg/dL (0.2-1.3); Total Protein 7.4 g/dL (6.3-8.2)
--- NOTE | 2021-04-08 03:20 | CT ---
EXAMINATION TYPE: CT abdomen pelvis w con DATE OF EXAM: 04/08/2021 COMPARISON: 02/15/2017 HISTORY: abdominal pain and bleeding from navel. prior on PACS. CT DLP: 1392.4 mGycm Automated exposure control for dose reduction was used. CONTRAST: Performed with IV Contrast, patient injected with 80ml mL of Isovue 300. There is some mild subsegmental atelectasis at the lung bases. Heart size is normal. There is no lissette cardial effusion. There is no pleural effusion. There are numerous cysts throughout the liver that measure up to 6.5 cm. Bile ducts are not dilated. There are clips from cholecystectomy. Spleen appears normal. There is no pancreatic mass. There is no adrenal mass. Kidneys show satisfactory contrast opacification. There is no hydronephrosi s. There are bilateral renal cortical cysts that measure up to 4.5 cm. Delayed images show normal himanshu al excretion. Ureters are not dilated. There is no retroperitoneal adenopathy. Appendix appears galilea l. The bladder distends smoothly. There is no inguinal hernia. There is no free fluid in the pelvis. There is hysterectomy. There is some mild increased density at the skin surface at the umbilicus that measures 14 mm. There is no mesenteric edema. There is no ascites or free air. There is no bowel obstruction. The lumbar vertebrae have normal alignment. Disc spaces are fairly normal. There is no compression fr acture. The bony pelvis is intact. Hip joints are intact. Sacroiliac joints are intact. IMPRESSION: Numerous hepatic and renal cysts. No adverse change overall compared to old exam no acute abnormality in the abdomen and pelvis. Normal appendix. cutaneous density at the umbilicus slightly increased compared to old exam and could relate to locali zed inflammatory process.
[2021-04-08] MEDS ORDERED: CEPHALEXIN 500 MG CAP PO STA (03:22)
[2021-04-08] MEDS ORDERED: SULFAMETH-TMP DS STARTER PACK 2 TAB BTL PO STA (03:22)
[2021-04-08] MEDS ORDERED: MUPIROCIN 2% OINT 22 GM TUBE TOPICAL STA (03:25)
[2021-04-08 04:45] VITALS: BP 134/89; PULSE 74
== END 2021-04-08 04:45 | disposition home or self-care (01) ==
LOC: EC 22:28
DX: R19.8 Other specified symptoms and signs involving the digestive system and abdomen (principal); I10 Essential (primary) hypertension; E78.5 Hyperlipidemia, unspecified; K21.9 Gastro-esophageal reflux disease without esophagitis; Z87.891 Personal history of nicotine dependence; Z79.899 Other long term (current) drug therapy
CPT/HCPCS: 36415; 80053; 85025; 87070; 87205; 74177; 99284; Q9967

== ENCOUNTER → 2022-01-13 | Outpatient (CLI) | payer MEDICARE ==
[2022-01-13 16:02] LABS: HCT 39.8 % (37.2-46.3); HGB 12.8 g/dL (12.0-15.0); MCH 28.6 pg (27.0-32.0); MCHC 32.2 g/dL (32.0-37.0); MCV 88.8 fL (80.0-97.0); Mean Platelet Volume 12.2 fL (9.5-12.2); NRBC Per 100 WBC 0 /100 WBCS (0.0-0.0); Platelet Count 171 X 10*3/uL (140-440); RBC 4.48 X 10*6/uL (4.10-5.20); RDW 14.2 % (11.5-14.5); WBC 3.57 X 10*3/uL (4.50-10.00)
[2022-01-13 17:08] LABS: T4, Free (Free Thyroxine) 0.85 ng/dL (0.800-1.800)
== END | disposition home or self-care (01) ==
LOC: LABWHC1 10:16
PROVIDERS: ATTEND Internal Medicine
DX: E05.90 Thyrotoxicosis, unspecified without thyrotoxic crisis or storm (principal)
CPT/HCPCS: 36415; 84439; 84450; 84460; 84481; 85027

== ENCOUNTER → 2022-03-23 | Outpatient (CLI) | payer MEDICARE ==
[2022-03-23 14:32] LABS: HGB 12.2 g/dL (12.0-15.0); MCH 28.2 pg (27.0-32.0); MCHC 32.1 g/dL (32.0-37.0); MCV 87.8 fL (80.0-97.0); Mean Platelet Volume 11.6 fL (9.5-12.2); NRBC Per 100 WBC 0 /100 WBCS (0.0-0.0); Platelet Count 199 X 10*3/uL (140-440); RBC 4.33 X 10*6/uL (4.10-5.20); RDW 14.1 % (11.5-14.5)
[2022-03-23 16:05] LABS: ALT 13 U/L (8-44); AST 22 U/L (13-35); African American GFR (CKD) 55.9 (60.0-200.0); BUN/Creat Ratio 18.72 Ratio (12.00-20.00); Blood Urea Nitrogen 20.4 mg/dL (9.0-27.0); Calcium 9.6 mg/dL (8.7-10.3); Chloride 105 mmol/L (96-109); Chol/HDL Ratio 3.47 Ratio; Glucose 87 mg/dL (70-110); LDL Cholesterol,Calculated 141.2 mg/dL (0.0-131.0); Non-African American GFR(CKD) 48.2 (60.0-200.0); Potassium 4.5 mmol/L (3.5-5.5); Sodium 143 mmol/L (135-145); VLDL Calculation 13.18 mg/dL (5.00-40.00)
== END | disposition home or self-care (01) ==
LOC: LABWHC1 09:35
PROVIDERS: ATTEND Family Medicine
DX: I10 Essential (primary) hypertension (principal); E78.00 Pure hypercholesterolemia, unspecified; E05.90 Thyrotoxicosis, unspecified without thyrotoxic crisis or storm
CPT/HCPCS: 36415; 80048; 80061; 82306; 84439; 84443; 84450; 84460; 85027

== ENCOUNTER → 2022-06-30 | Outpatient (CLI) | payer MEDICARE ==
[2022-06-30 15:58] LABS: African American GFR (CKD) 55.3 (60.0-200.0); Albumin 4.2 g/dL (3.8-4.9); Albumin/Globulin Ratio 1.45 (1.60-3.17); Anion Gap 9.2 mmol/L (10.00-18.00); BUN/Creat Ratio 13.91 Ratio (12.00-20.00); Blood Urea Nitrogen 15.3 mg/dL (9.0-27.0); Calcium 9.7 mg/dL (8.7-10.3); Globulin 2.9 g/dL (1.6-3.3); Non-African American GFR(CKD) 47.7 (60.0-200.0); T4, Free (Free Thyroxine) 0.88 ng/dL (0.800-1.800); Total Bilirubin 0.5 mg/dL (0.30-1.20); Total Protein 7.1 g/dL (6.2-8.2)
== END | disposition home or self-care (01) ==
LOC: LABWHC1 09:09
PROVIDERS: ATTEND Internal Medicine Interventional Cardiology
DX: E05.00 Thyrotoxicosis with diffuse goiter without thyrotoxic crisis or storm (principal); E78.2 Mixed hyperlipidemia; R73.03 Prediabetes
CPT/HCPCS: 36415; 80053; 83036; 84439; 84443; 84480

== ENCOUNTER → 2022-07-22 | Outpatient (CLI) | payer MEDICARE ==
[2022-07-22 12:25] LABS: Appearance,Urine Cloudy (Clear); Bacteria,Urine Rare /hpf; Bilirubin,Urine Negative (Negative); Blood,Urine Negative (Negative); Color,Urine Yellow; Glucose,Urine (UA) Negative (Negative); Hyaline Casts,Urine 3 /lpf (0-2); Ketones,Urine Negative (Negative); Leukocyte Esterase,Urine Large (Negative); Mucus,Urine Rare /hpf; Nitrite,Urine Negative (Negative); Protein,Urine Negative (Negative); RBC,Urine 8 /hpf (0-5); Specific Gravity,Urine 1.016 (1.001-1.035); Squamous Epithelial Cell,Urine 4 /hpf (0-4); Urobilinogen,Urine <2.0 mg/dL (<2.0); WBC,Urine 3 /hpf (0-5)
[2022-07-22 15:22] LABS: HCT 40.4 % (37.2-46.3); HGB 12.6 g/dL (12.0-15.0); MCHC 31.2 g/dL (32.0-37.0); MCV 86.5 fL (80.0-97.0); NRBC Per 100 WBC 0 /100 WBCS (0.0-0.0); Platelet Count 119 X 10*3/uL (140-440); RBC 4.67 X 10*6/uL (4.10-5.20); RDW 14.3 % (11.5-14.5); WBC 4.07 X 10*3/uL (4.50-10.00)
[2022-07-22 15:50] LABS: African American GFR (CKD) 49.4 (60.0-200.0); Anion Gap 8.9 mmol/L (10.00-18.00); BUN/Creat Ratio 14.08 Ratio (12.00-20.00); Blood Urea Nitrogen 16.9 mg/dL (9.0-27.0); Calcium 9.5 mg/dL (8.7-10.3); Carbon Dioxide 28.1 mmol/L (20.0-27.5); Non-African American GFR(CKD) 42.6 (60.0-200.0)
[2022-07-22 17:04] LABS: Basophils # (A) 0.05 X 10*3/uL (0.00-0.10); Basophils % (A) 1.2 %; Elliptocytes 2+; Eosinophils # (A) 0.03 X 10*3/uL (0.04-0.35); Eosinophils % (A) 0.7 %; Immature Grans, Automated 0.2 %; Lymphocytes # (A) 2.61 X 10*3/uL (0.90-5.00); Lymphocytes % (A) 64.1 %; Monocytes # (A) 0.24 X 10*3/uL (0.20-1.00); Monocytes % (A) 5.9 %; Neutrophils # (A) 1.13 X 10*3/uL (1.80-7.70); Neutrophils % (A) 27.9 %
== END | disposition home or self-care (01) ==
LOC: LABWHC1 09:06
PROVIDERS: ATTEND Family Medicine
DX: D72.819 Decreased white blood cell count, unspecified (principal); R82.71 Bacteriuria
CPT/HCPCS: 36415; 80048; 81001; 85025

== ENCOUNTER → 2022-08-04 | Outpatient (CLI) | payer MEDICARE ==
[2022-08-04 10:42] LABS: Basophils % (A) 1 %; Eosinophils # (A) 0.1 k/uL (0-0.7); Eosinophils % (A) 2 %; HGB 12.3 gm/dL (11.4-16.0); Hypochromasia Slight; Lymphocytes # (A) 1.6 k/uL (1.0-4.8); Lymphocytes % (A) 51 %; MCH 27.2 pg (25.0-35.0); MCHC 30.7 g/dL (31.0-37.0); MCV 88.5 fL (80.0-100.0); Mean Platelet Volume 9.1; Monocytes # (A) 0.2 k/uL (0-1.0); Monocytes % (A) 5 %; Neutrophils # (A) 1.2 k/uL (1.3-7.7); Neutrophils % (A) 37 %; Platelet Count 180 k/uL (150-450); RBC 4.52 m/uL (3.80-5.40); RDW 14.4 % (11.5-15.5); WBC 3.1 k/uL (3.8-10.6)
== END | disposition home or self-care (01) ==
LOC: LABWHC1 10:07
PROVIDERS: ATTEND Family Medicine
DX: R89.9 Unspecified abnormal finding in specimens from other organs, systems and tissues (principal)
CPT/HCPCS: 36415; 85025

== ENCOUNTER → 2022-08-12 | Outpatient (CLI) | payer MEDICARE ==
[2022-08-12 15:04] LABS: Basophils # (A) 0.04 X 10*3/uL (0.00-0.10); Basophils % (A) 1.3 %; Eosinophils # (A) 0.11 X 10*3/uL (0.04-0.35); Eosinophils % (A) 3.4 %; HCT 40.1 % (37.2-46.3); HGB 12.2 g/dL (12.0-15.0); Immature Grans, Automated 0 %; Lymphocytes # (A) 1.67 X 10*3/uL (0.90-5.00); Lymphocytes % (A) 52.2 %; MCH 27.1 pg (27.0-32.0); MCHC 30.4 g/dL (32.0-37.0); MCV 89.1 fL (80.0-97.0); Mean Platelet Volume 12.1 fL (9.5-12.2); Monocytes # (A) 0.28 X 10*3/uL (0.20-1.00); Monocytes % (A) 8.8 %; NRBC Per 100 WBC 0 /100 WBCS (0.0-0.0); Neutrophils % (A) 34.3 %; Platelet Count 187 X 10*3/uL (140-440); RDW 15.1 % (11.5-14.5)
== END | disposition home or self-care (01) ==
LOC: LABWHC1 08:58
PROVIDERS: ATTEND Family Medicine
DX: R89.9 Unspecified abnormal finding in specimens from other organs, systems and tissues (principal)
CPT/HCPCS: 36415; 85025

== ENCOUNTER → 2022-08-27 | Outpatient (CLI) | payer MEDICARE ==
[2022-08-27 16:04] LABS: HCT 39.5 % (37.2-46.3); HGB 12.3 d/dL (12.0-15.0); MCH 27.5 pg (27.0-32.0); MCHC 31.1 d/dL (32.0-37.0); MCV 88.2 FL (80.0-97.0); Mean Platelet Volume 11.4 FL (9.5-12.2); NRBC Per 100 WBC 0 X 10*3/uL (0.00-0.01); Platelet Count 166 X 10*3/uL (140-440); RBC 4.48 X 10*6/uL (4.10-5.20); RDW 14.8 % (11.5-14.5); WBC 2.87 X 10*3/uL (4.50-10.00)
[2022-08-27 16:07] LABS: ALT 14 U/L (8-44); AST 22 U/L (13-35); Albumin 4.1 d/dL (3.8-4.9); Albumin/Globulin Ratio 1.41 Ratio (1.60-3.17); Alkaline Phosphatase 72 U/L (41-126); BUN/Creat Ratio 13.92 Ratio (12.00-20.00); Blood Urea Nitrogen 16.7 mg/dL (9.0-27.0); Calcium 9.9 mg/dL (8.7-10.3); Chloride 104 mmol/L (96-109); Chol/HDL Ratio 3.49 Ratio; Globulin 2.9 d/dL (1.6-3.3); Glucose 82 mg/dL (70-110); LDL Cholesterol,Calculated 161.8 mg/dL (0.0-131.0); Sodium 140 mmol/L (135-145); Total Bilirubin 0.4 mg/dL (0.3-1.2)
== END | disposition home or self-care (01) ==
LOC: LABWHC1 10:13
PROVIDERS: ATTEND Family Medicine
DX: Z00.01 Encounter for general adult medical examination with abnormal findings (principal)
CPT/HCPCS: 36415; 80053; 80061; 82306; 85027

== ENCOUNTER → 2022-09-08 | Outpatient (CLI) | payer MEDICARE ==
[2022-09-08 13:47] LABS: African American GFR (CKD) 53 (>60 ml/min/1.73 sqM); Anion Gap 4 mmol/L; Blood Urea Nitrogen 15 mg/dL (7-17); Calcium 9.8 mg/dL (8.4-10.2); Carbon Dioxide 32 mmol/L (22-30); Chloride 102 mmol/L (98-107); Glucose 98 mg/dL (74-99); Non-African American GFR(CKD) 46 (>60 ml/min/1.73 sqM); Potassium 4.3 mmol/L (3.5-5.1); Sodium 138 mmol/L (137-145)
[2022-09-08 13:50] LABS: Basophils % (A) 1 %; Eosinophils # (A) 0.1 k/uL (0-0.7); Eosinophils % (A) 3 %; HCT 43.8 % (34.0-46.0); HGB 13.7 gm/dL (11.4-16.0); Hypochromasia Slight; Lymphocytes # (A) 1.6 k/uL (1.0-4.8); Lymphocytes % (A) 52 %; MCH 28.3 pg (25.0-35.0); MCHC 31.2 g/dL (31.0-37.0); MCV 90.8 fL (80.0-100.0); Mean Platelet Volume 9.6; Monocytes # (A) 0.2 k/uL (0-1.0); Monocytes % (A) 7 %; Neutrophils # (A) 1.1 k/uL (1.3-7.7); Neutrophils % (A) 35 %; Platelet Count 174 k/uL (150-450); RBC 4.83 m/uL (3.80-5.40); RDW 14.4 % (11.5-15.5)
== END | disposition home or self-care (01) ==
LOC: LABWHC1 11:30
PROVIDERS: ATTEND Family Medicine
DX: D72.819 Decreased white blood cell count, unspecified (principal)
CPT/HCPCS: 36415; 80048; 85025

== ENCOUNTER → 2022-09-17 | Outpatient (CLI) | payer MEDICARE ==
[2022-09-17 16:49] LABS: BUN/Creat Ratio 14.08 Ratio (12.00-20.00); Blood Urea Nitrogen 16.9 mg/dL (9.0-27.0); Calcium 9.9 mg/dL (8.7-10.3); Carbon Dioxide 25.4 mmol/L (21.6-31.8); Chloride 102 mmol/L (96-109); Glucose 85 mg/dL (70-110); Potassium 4.7 mmol/L (3.5-5.5); Sodium 138 mmol/L (135-145)
[2022-09-17 18:15] LABS: Basophils # (A) 0.04 X 10*3/uL (0.00-0.10); Elliptocytes 2+; Eosinophils # (A) 0.07 X 10*3/uL (0.04-0.35); Eosinophils % (A) 1.8 %; HGB 13.1 d/dL (12.0-15.0); Lymphocytes # (A) 2.07 X 10*3/uL (0.90-5.00); Lymphocytes % (A) 52.4 %; MCH 27.9 pg (27.0-32.0); MCHC 31.2 d/dL (32.0-37.0); MCV 89.4 FL (80.0-97.0); Mean Platelet Volume 13.5 FL (9.5-12.2); Monocytes # (A) 0.33 X 10*3/uL (0.20-1.00); Monocytes % (A) 8.4 %; NRBC Per 100 WBC 0 X 10*3/uL (0.00-0.01); Neutrophils # (A) 1.43 X 10*3/uL (1.80-7.70); Neutrophils % (A) 36.1 %; Platelet Count 137 X 10*3/uL (140-440); RDW 14.6 % (11.5-14.5); WBC 3.95 X 10*3/uL (4.50-10.00)
== END | disposition home or self-care (01) ==
LOC: LABWHC1 11:25
PROVIDERS: ATTEND Family Medicine
DX: R94.4 Abnormal results of kidney function studies (principal); R79.89 Other specified abnormal findings of blood chemistry
CPT/HCPCS: 36415; 80048; 85025

== ENCOUNTER → 2022-10-04 | Outpatient (CLI) | payer MEDICARE ==
[2022-10-04 16:11] LABS: T4, Free (Free Thyroxine) 0.81 ng/dL (0.80-1.80)
== END | disposition home or self-care (01) ==
LOC: LABWHC1 09:49
PROVIDERS: ATTEND Internal Medicine Endocrinology, Diabetes & Metabolism
DX: E05.00 Thyrotoxicosis with diffuse goiter without thyrotoxic crisis or storm (principal)
CPT/HCPCS: 36415; 84439; 84443; 84480

== ENCOUNTER → 2022-10-20 | Outpatient (CLI) | payer MEDICARE ==
[2022-10-20 16:42] LABS: Basophils # (A) 0.04 X 10*3/uL (0.00-0.10); Basophils % (A) 1.2 %; Eosinophils # (A) 0.05 X 10*3/uL (0.04-0.35); Eosinophils % (A) 1.5 %; HCT 39.8 % (37.2-46.3); HGB 12.7 d/dL (12.0-15.0); Immature Grans, Automated 0 %; Lymphocytes # (A) 1.88 X 10*3/uL (0.90-5.00); Lymphocytes % (A) 57.5 %; MCH 27.9 pg (27.0-32.0); MCHC 31.9 d/dL (32.0-37.0); MCV 87.5 FL (80.0-97.0); Mean Platelet Volume 12.1 FL (9.5-12.2); Monocytes # (A) 0.27 X 10*3/uL (0.20-1.00); Monocytes % (A) 8.3 %; NRBC Per 100 WBC 0 X 10*3/uL (0.00-0.01); Neutrophils # (A) 1.03 X 10*3/uL (1.80-7.70); Neutrophils % (A) 31.5 %; Platelet Count 167 X 10*3/uL (140-440); RBC 4.55 X 10*6/uL (4.10-5.20); RDW 14.8 % (11.5-14.5); WBC 3.27 X 10*3/uL (4.50-10.00)
[2022-10-20 16:59] LABS: Albumin 4.2 d/dL (3.8-4.9); Protein, Total 6.9 d/dL (6.2-8.2)
[2022-10-20 17:10] LABS: Immunoglobulin M <35.0 mg/dL (40.0-280.0)
[2022-10-20 17:14] LABS: Rheumatoid Factor, Qnt <15 IU/mL (0-15)
[2022-10-20 17:16] LABS: Erythrocyte Sedimentation Rate 35 mm/Hr (0-30)
[2022-10-21 12:24] LABS: Free Kappa Lt Chain Qnt, Serum 2.18 mg/dL (0.33-1.94)
== END | disposition home or self-care (01) ==
LOC: LABWHC1 11:31
PROVIDERS: ATTEND Internal Medicine Hematology & Oncology
DX: I10 Essential (primary) hypertension (principal); E78.5 Hyperlipidemia, unspecified; M12.9 Arthropathy, unspecified; D70.9 Neutropenia, unspecified
CPT/HCPCS: 36415; 82607; 82746; 83883; 83921; 84165; 85025; 85652; 86038; 86334; 86431

== ENCOUNTER → 2022-11-18 | Outpatient (CLI) | payer MEDICARE ==
--- NOTE | 2022-11-18 09:30 | US ---
EXAMINATION TYPE: US abdomen complete DATE OF EXAM: 11/18/2022 COMPARISON: CT 04/08/21 abdominal ultrasound 03/16/2021 CLINICAL INDICATION: Female, 82 years old with history of D70.9 NEUTROPENIA; Possible occult liver, s plenomegaly TECHNIQUE: Multiple sonographic images of the abdomen are obtained. FINDINGS: EXAM MEASUREMENTS: Liver Length: 13.9 cm CBD: 0.8 cm Spleen: 8.2 x 8.6 x 2.4 cm Right Kidney: 10.0 x 4.5 x 5.2 cm Left Kidney: 10.0 x 5.5 x 4.5 cm PHYSIOGNOMIST NOTES: Pancreas: Tail obscured by overlying bowel gas Liver: Numerous cystic areas noted throughout; largest measuring 3.4 x 3.1 x 3.7 cm Gallbladder: Surgically absent CBD: wnl Spleen: wnl Right Kidney: Superior cyst measuring 4.2 x 4.0 x 4.3 cm Left Kidney: Inferior cyst measuring 3.8 x 3.4 x 3.1 cm Upper IVC: wnl Abd Aorta: Mid aorta there appears to be dilation within the vessel measuring 3.1 x 2.3 cm. Atherosc lerotic changes throughout Common bile duct is unremarkable. The visualized portions of the pancreas are homogenous. The tail is obscured by overlying bowel gas. Numerous simple cysts identified within the liver. Gallbladder is surgically absent. The spleen is unremarkable. Kidneys are symmetric and free of hydronephrosis. No nephrolithiasis. Bilateral simple renal cysts. Infrarenal abdominal aortic aneurysm measuring 3.1 cm suggested with mural thrombus. IMPRESSION: 1. No acute process. 2. Simple hepatic and renal cysts. 3. Infrarenal abdominal aortic aneurysm suggested measuring up to 3.1 cm. 4. Postcholecystectomy changes.
== END | disposition home or self-care (01) ==
LOC: RADUSWWP 08:43
PROVIDERS: ATTEND Internal Medicine Hematology & Oncology
DX: N28.1 Cyst of kidney, acquired (principal); D70.9 Neutropenia, unspecified; K76.89 Other specified diseases of liver; E78.5 Hyperlipidemia, unspecified; I10 Essential (primary) hypertension; M12.9 Arthropathy, unspecified; Z90.49 Acquired absence of other specified parts of digestive tract
CPT/HCPCS: 76700

== ENCOUNTER → 2022-12-01 | Outpatient (CLI) | payer MEDICARE ==
[2022-12-01 09:15] LABS: African American GFR (CKD) 53 (>60 ml/min/1.73 sqM); Blood Urea Nitrogen 19 mg/dL (7-17); Non-African American GFR(CKD) 46 (>60 ml/min/1.73 sqM)
--- NOTE | 2022-12-01 11:04 | CT ---
EXAMINATION TYPE: CT angio chest CT DLP: 649.2 mGycm, Automated exposure control for dose reduction was used. DATE OF EXAM: 12/01/2022 9:57 AM COMPARISON: 11/25/2020, 04/08/2021 CLINICAL INDICATION:Female, 82 years old with history of I71.20 THORACIC AORTIC ANEURYSM; Follow up f or thoracic aortic aneurysm. TECHNIQUE/CONTRAST: CTA scan of the thorax is performed without and with IV Contrast, patient injected with 100ml mL of I sovue 370, MIP images are created and reviewed these are created on a separate workstation.. FINDINGS: Lungs/Pleura: No evidence of focal consolidation, pleural effusion or pneumothorax. Airway: Large airways are patent. Heart: There is mildly enlarged for size. There is mild coronary artery calcifications. Vasculature: No evidence for intramural hematoma on noncontrast. No evidence of intimal flap to sugge st dissection. No aneurysm identified. Scattered atherosclerotic disease. Ascending thoracic aorta me asuring up to 3.5 cm which is within normal limits. No evidence for pulmonary arterial vasculature fi lling defect to suggest pulmonary embolus. The descending thoracic aorta is within normal limits for size measuring up to 2.5 cm. Mediastinum: No gross evidence of adenopathy. Musculoskeletal: No acute osseous abnormalities Soft Tissues: Heterogenous appearing thyroid gland. Lower neck: No significant findings. Upper Abdomen: Scattered hepatic cysts are seen throughout the liver. Right renal simple appearing re nal cyst and nonenhancing additional palpable proteinaceous/hemorrhagic cyst. This is stable from 202 1. The gallbladder surgically absent. IMPRESSION: 1. No evidence of pulmonary embolism, dissection or thoracic aneurysm. The ascending and descending t horacic aorta is within normal limits for size. 2. Heterogenous thyroid gland, correlate with thyroid ultrasound if not recently performed. 3. Stable right renal simple cyst and probable proteinaceous/hemorrhagic cyst. 4. Stable hepatic cysts.
== END | disposition home or self-care (01) ==
LOC: RADCTMAIN 08:47
PROVIDERS: ATTEND Surgery
DX: I71.20 Thoracic aortic aneurysm, without rupture, unspecified (principal); K76.89 Other specified diseases of liver; N28.1 Cyst of kidney, acquired; E07.89 Other specified disorders of thyroid
CPT/HCPCS: 82565; 84520; 71275; 36415; Q9967

== ENCOUNTER → 2022-12-07 | Outpatient (CLI) | payer MEDICARE ==
[2022-12-07 16:17] LABS: T4, Free (Free Thyroxine) 0.76 ng/dL (0.80-1.80)
== END | disposition home or self-care (01) ==
LOC: LABWHC1 11:12
PROVIDERS: ATTEND Internal Medicine Endocrinology, Diabetes & Metabolism
DX: E05.00 Thyrotoxicosis with diffuse goiter without thyrotoxic crisis or storm (principal); R73.03 Prediabetes
CPT/HCPCS: 36415; 83036; 84439; 84443; 84480

== ENCOUNTER 2023-01-06 11:50 | Day surgery (SDC) | payer MEDICARE ==
[2023-01-06] MEDS ORDERED: ALPRAZolam 0.25 MG TAB PO STA (12:57)
[2023-01-06 13:02] VITALS: RESP 18
[2023-01-06 13:57] VITALS: TEMP 98.5
--- NOTE | 2023-01-06 14:34 | US ---
ULTRASOUND GUIDED FNA THYROID BIOPSY: CLINICAL HISTORY: Request for 2 right-sided thyroid nodule FINDINGS: The procedure was explained to the patient. The risks, complications, benefits and alternatives were discussed and any questions were answered. Informed consent was obtained. Patient was placed supin e on the ultrasound table and prepped and draped in the usual sterile fashion. Utilizing a 25 gauge needle, five passes were made into the 2 requested right thyroid nodules. Patient was stable throughout the procedure. Pathology is pending. All elements of maximal barrier technique were utilized. IMPRESSION: 1. Successful ultrasound guided FNA thyroid biopsy.
[2023-01-06 14:35] VITALS: BP 132/74; PULSE 66
== END 2023-01-06 14:05 | disposition home or self-care (01) ==
LOC: RADPROMAIN 11:50
PROVIDERS: ATTEND Internal Medicine Endocrinology, Diabetes & Metabolism
DX: E04.2 Nontoxic multinodular goiter (principal)
CPT/HCPCS: 10005; 10006; 88173; 88305

== ENCOUNTER → 2023-04-07 | Outpatient (CLI) | payer MEDICARE ==
[2023-04-07 16:12] LABS: HCT 43.6 % (37.2-46.3); HGB 13.6 g/dL (12.0-15.0); MCH 27.4 pg (27.0-32.0); MCHC 31.2 g/dL (32.0-37.0); MCV 87.9 FL (80.0-97.0); Mean Platelet Volume 11.1 FL (9.5-12.2); NRBC Per 100 WBC 0 X 10*3/uL (0.00-0.01); Platelet Count 202 X 10*3/uL (140-440); RBC 4.96 X 10*6/uL (4.10-5.20); WBC 3.51 X 10*3/uL (4.50-10.00)
[2023-04-07 16:46] LABS: ALT 16 U/L (8-44); AST 25 U/L (13-35); BUN/Creat Ratio 13.17 Ratio (12.00-20.00); Blood Urea Nitrogen 15.8 mg/dL (9.0-27.0); Carbon Dioxide 28.9 mmol/L (21.6-31.8); Chloride 102 mmol/L (96-109); Chol/HDL Ratio 2.87 Ratio; Glucose 87 mg/dL (70-110); LDL Cholesterol,Calculated 135.8 mg/dL (0.0-131.0); Potassium 4.6 mmol/L (3.5-5.5); Sodium 140 mmol/L (135-145); VLDL Calculation 14.84 mg/dL (5.00-40.00)
== END | disposition home or self-care (01) ==
LOC: LABWHC1 08:34
PROVIDERS: ATTEND Family Medicine
DX: I10 Essential (primary) hypertension (principal); E78.00 Pure hypercholesterolemia, unspecified; E05.00 Thyrotoxicosis with diffuse goiter without thyrotoxic crisis or storm
CPT/HCPCS: 36415; 80048; 80061; 82306; 84439; 84443; 84450; 84460; 84480; 85027

== ENCOUNTER → 2023-04-11 | Outpatient (CLI) | payer MEDICARE ==
[2023-04-11 13:08] LABS: Ionized Calcium 5.3 mg/dL (4.5-5.3)
[2023-04-11 16:26] LABS: Blood Urea Nitrogen 18.6 mg/dL (9.0-27.0); Carbon Dioxide 28.3 mmol/L (21.6-31.8); Chloride 103 mmol/L (96-109); Glucose 84 mg/dL (70-110); Potassium 3.9 mmol/L (3.5-5.5); Sodium 140 mmol/L (135-145)
== END | disposition home or self-care (01) ==
LOC: LABWHC1 12:10
PROVIDERS: ATTEND Family Medicine
DX: E83.52 Hypercalcemia (principal)
CPT/HCPCS: 36415; 80048; 82330; 83970

== ENCOUNTER → 2023-05-09 | Outpatient (CLI) | payer MEDICARE ==
[2023-05-09 15:48] LABS: ALT 12 U/L (8-44); AST 20 U/L (13-35); Albumin 4.1 g/dL (3.8-4.9); Albumin/Globulin Ratio 1.46 Ratio (1.60-3.17); Alkaline Phosphatase 76 U/L (41-126); Blood Urea Nitrogen 19.8 mg/dL (9.0-27.0); Calcium 9.8 mg/dL (8.7-10.3); Carbon Dioxide 27.8 mmol/L (21.6-31.8); Chloride 106 mmol/L (96-109); Globulin 2.8 g/dL (1.6-3.3); Glucose 84 mg/dL (70-110); Potassium 4.5 mmol/L (3.5-5.5); Sodium 143 mmol/L (135-145); T4, Free (Free Thyroxine) 0.91 ng/dL (0.80-1.80); Total Bilirubin 0.3 mg/dL (0.3-1.2); Total Protein 6.9 g/dL (6.2-8.2)
== END | disposition home or self-care (01) ==
LOC: LABWHC1 09:11
PROVIDERS: ATTEND Internal Medicine Endocrinology, Diabetes & Metabolism
DX: E05.00 Thyrotoxicosis with diffuse goiter without thyrotoxic crisis or storm (principal); E83.52 Hypercalcemia
CPT/HCPCS: 36415; 80053; 82306; 83970; 84439; 84443; 84480

== ENCOUNTER → 2023-06-29 | Outpatient (CLI) | payer MEDICARE ==
[2023-06-29 16:12] LABS: ALT 17 U/L (8-44); AST 21 U/L (13-35); Chol/HDL Ratio 2.81 Ratio; LDL Cholesterol,Calculated 126.2 mg/dL (0.0-131.0); T4, Free (Free Thyroxine) 0.99 ng/dL (0.80-1.80); VLDL Calculation 14.28 mg/dL (5.00-40.00)
== END | disposition home or self-care (01) ==
LOC: LABWHC1 10:23
PROVIDERS: ATTEND Internal Medicine Interventional Cardiology
DX: E78.2 Mixed hyperlipidemia (principal); E05.90 Thyrotoxicosis, unspecified without thyrotoxic crisis or storm; R73.03 Prediabetes
CPT/HCPCS: 36415; 80061; 83036; 84439; 84443; 84445; 84450; 84460; 84480

== ENCOUNTER → 2023-08-31 | Outpatient (CLI) | payer MEDICARE ==
[2023-08-31 18:17] LABS: HCT 41.9 % (37.2-46.3); HGB 12.7 g/dL (12.0-15.0); MCH 26.8 pg (27.0-32.0); MCHC 30.3 g/dL (32.0-37.0); MCV 88.6 FL (80.0-97.0); NRBC Per 100 WBC 0 X 10*3/uL (0.00-0.01); Platelet Count 194 X 10*3/uL (140-440); RBC 4.73 X 10*6/uL (4.10-5.20); RDW 13.8 % (11.5-14.5); WBC 3.42 X 10*3/uL (4.50-10.00)
[2023-08-31 18:25] LABS: Appearance,Urine Cloudy (Clear); Bilirubin,Urine Negative (Negative); Blood,Urine Negative (Negative); Color,Urine Yellow (Yellow); Ketones,Urine Negative (Negative); Nitrite,Urine Negative (Negative); PH, Urine 5.5; Specific Gravity,Urine 1.015 (1.001-1.030); Urobilinogen,Urine 0.2 E.U./DL
[2023-08-31 18:29] LABS: Bacteria,Urine 2+ (None Seen)
[2023-08-31 18:51] LABS: ALT 15 U/L (8-44); AST 25 U/L (13-35); Albumin 4.3 g/dL (3.8-4.9); Albumin/Globulin Ratio 1.54 Ratio (1.60-3.17); Alkaline Phosphatase 78 U/L (41-126); BUN/Creat Ratio 13.82 Ratio (12.00-20.00); Blood Urea Nitrogen 15.2 mg/dL (9.0-27.0); Carbon Dioxide 27.9 mmol/L (21.6-31.8); Chloride 106 mmol/L (96-109); Chol/HDL Ratio 2.74 Ratio; Globulin 2.8 g/dL (1.6-3.3); Glucose 99 mg/dL (70-110); LDL Cholesterol,Calculated 112.7 mg/dL (0.0-131.0); Potassium 4.2 mmol/L (3.5-5.5); Sodium 145 mmol/L (135-145); T4, Free (Free Thyroxine) 1.34 ng/dL (0.80-1.80); Total Bilirubin 0.7 mg/dL (0.3-1.2); Total Protein 7.1 g/dL (6.2-8.2); Uric Acid 5.5 mg/dL (2.9-7.7); VLDL Calculation 11.84 mg/dL (5.00-40.00)
== END | disposition home or self-care (01) ==
LOC: LABWHC1 09:49
PROVIDERS: ATTEND Family Medicine
DX: I12.9 Hypertensive chronic kidney disease with stage 1 through stage 4 chronic kidney disease, or unspecified chronic kidney disease (principal); N18.30 Chronic kidney disease, stage 3 unspecified; E05.90 Thyrotoxicosis, unspecified without thyrotoxic crisis or storm; E78.5 Hyperlipidemia, unspecified
CPT/HCPCS: 36415; 80053; 80061; 81001; 82306; 83036; 84100; 84439; 84443; 84550; 85027

== ENCOUNTER → 2023-09-06 | Outpatient (CLI) | payer MEDICARE | END | disposition home or self-care (01) | LOC: LABWHC1 15:34 | PROVIDERS: ATTEND Family Medicine | DX: R39.9 Unspecified symptoms and signs involving the genitourinary system (principal) | CPT/HCPCS: 87086 ==

== ENCOUNTER → 2023-12-01 | Outpatient (CLI) | payer MEDICARE ==
--- NOTE | 2023-12-01 14:50 | US ---
EXAMINATION TYPE: US thyroid st tissue head/neck DATE OF EXAM: 12/01/2023 COMPARISON: NONE CLINICAL INDICATION: Female, 83 years old with history of E04.2 MULTINODULAR GOITER; known nodules ,h /o FNA's, no symptoms today GLAND SIZE: Right Lobe: 4.6 x 2.8 x 2.3 cm Overall Parenchyma: heterogeneous Left Lobe: 6.1 x 2.8 x 2.4 cm Overall Parenchyma: heterogeneous Isthmus Thickness: 0.6 cm NODULES RIGHT: # of nodules measured on right: measured largest 2 1. 2.3 X 1.7 x 1.5 cm, mid , solid or almost completely solid, hypoechoic nodule, which is wider norman n tall, with smooth margins, without echogenic foci. TR 4 Prior size: 2.0 x 2.2 x 1.7 cm 2. 1.7 X 1.9 x 1.7 cm, mid , mixed cystic and solid, hypoechoic nodule, which is wider than tall, w ith smooth margins, without echogenic foci. TR 3 Prior size: not measured prior LEFT: # of nodules measured on left: measured largest 2 1. 2.1 X 2.1 x 1.8 cm, lower , mixed cystic and solid, hypoechoic nodule, which is wider than tall, with smooth margins, without echogenic foci. TR 3 Prior size: 2.0 x 1.9 x 1.9 cm 2. 2.2 X 2.1 x 2.3 cm, mid , solid or almost completely solid, hypoechoic nodule, which is wider th an tall, with smooth margins, without echogenic foci. TR 4 Prior size: 2.1 x 2.5 x 1.6 cm ISTHMUS: # of nodules measured in the isthmus: 0 Bilateral neck scanned, no evidence of lymphadenopathy. IMPRESSION: Stable or minimal incremental increase in size of the previously described thyroid nodules. 2017 ACR TI-RADS LEVEL: TR-RADS 4 - Moderately Suspicious: Follow if > 1 cm, FNA if > 1.5 cm *Highest TI-RADS level nodule reported
== END | disposition home or self-care (01) ==
LOC: RADUSWWP 14:02
PROVIDERS: ATTEND Family Medicine
DX: E04.2 Nontoxic multinodular goiter (principal)
CPT/HCPCS: 76536

== ENCOUNTER → 2023-12-20 | Outpatient (CLI) | payer MEDICARE ==
--- NOTE | 2023-12-20 14:00 | CT ---
EXAMINATION TYPE: CT chest wo con CT DLP: 572 mGycm, Automated exposure control for dose reduction was used. DATE OF EXAM: 12/20/2023 12:22 PM COMPARISON: CTA chest 12/01/2022, 11/25/2020 CLINICAL INDICATION:Female, 83 years old with history of I71.20 THORACIC AORTIC ANEURYSM, WITHOUT RUP TURE,; PHH, Follow up for thoracic aortic aneurysm. TECHNIQUE: Multiple axial images were obtained through the chest without IV contrast. Lack of IV or o ral contrast limits evaluation of solid and hollow organ viscera. . Coronal and sagittal reformats re viewed. FINDINGS: LUNGS/ PLEURA: No pleural effusion, pneumothorax, focal consolidation. Stable linear scarring within the left lower lobe. Few stable pulmonary groundglass nodules measuring up to 4 mm (series 4, image 24). No new or enlarging pulmonary nodules. AIRWAY: Patent and unremarkable.. HEART: Size within normal limits. No pericardial effusion. Small aortic valve calcifications. Small c oronary artery calcifications. MEDIASTINUM: No gross evidence of adenopathy. VASCULATURE: Conventional three-vessel aortic arch. Tortuosity of the descending thoracic aorta. Stab le ectasia of the ascending thoracic aorta measuring up to 3.9 cm when measured with similar techniqu e. No hyperdensity on noncontrast imaging to suggest intramural hematoma. Aortic root is normal measu ring 3.1 cm. Descending thoracic aorta measures 3.1 cm. Stable when measured with similar technique. Mild atherosclerotic calcification of the aorta and its branches. MUSCULOSKELETAL: No acute osseous abnormalities. Degenerative changes of the right shoulder and AC keena int. Hemangioma involving the T9 vertebral body redemonstrated. SOFT TISSUES/LYMPH NODES: Unremarkable. LOWER NECK: Redemonstration of enlarged thyroid gland with multiple nodules with largest measuring up to 1.4 cm in the left thyroid lobe. Prior FNA. UPPER ABDOMEN: Multiple cysts redemonstrated within the liver. Right upper pole renal 4 cm cyst. Uppe r pole right renal isodense 1.9 cm proteinaceous versus hemorrhagic cyst re-demonstrated. Left upper pole renal 1.7 cm cyst. Gallbladder surgically absent. IMPRESSION: Stable ectasia of the ascending thoracic aorta measuring up to 3.9 cm when measured with similar tech nique. [facility], , 12/20/2023 1:58 PM
== END | disposition home or self-care (01) ==
LOC: RADCTMAIN 12:00
PROVIDERS: ATTEND Surgery
DX: I71.20 Thoracic aortic aneurysm, without rupture, unspecified (principal)
CPT/HCPCS: 71250

== ENCOUNTER → 2024-01-09 | Outpatient (CLI) | payer MEDICARE ==
[2024-01-09 17:41] LABS: T4, Free (Free Thyroxine) 1.16 ng/dL (0.80-1.80)
== END | disposition home or self-care (01) ==
LOC: LABWHC1 08:27
PROVIDERS: ATTEND Internal Medicine Endocrinology, Diabetes & Metabolism
DX: E05.90 Thyrotoxicosis, unspecified without thyrotoxic crisis or storm (principal)
CPT/HCPCS: 36415; 84439; 84443; 84480

== ENCOUNTER → 2024-02-07 | Outpatient (CLI) | payer MEDICARE ==
[2024-02-08 03:03] LABS: ALT 14 U/L (8-44); AST 23 U/L (13-35); Albumin 4.5 g/dL (3.8-4.9); Albumin/Globulin Ratio 1.45 Ratio (1.60-3.17); Alkaline Phosphatase 87 U/L (41-126); Blood Urea Nitrogen 17.2 mg/dL (9.0-27.0); Calcium 10.4 mg/dL (8.7-10.3); Carbon Dioxide 28.9 mmol/L (21.6-31.8); Chloride 104 mmol/L (96-109); Chol/HDL Ratio 2.92 Ratio; Globulin 3.1 g/dL (1.6-3.3); Glucose 102 mg/dL (70-110); LDL Cholesterol,Calculated 138.8 mg/dL (0.0-131.0); Potassium 3.9 mmol/L (3.5-5.5); Sodium 143 mmol/L (135-145); Total Bilirubin 0.5 mg/dL (0.3-1.2); Total Protein 7.6 g/dL (6.2-8.2); VLDL Calculation 12.98 mg/dL (5.00-40.00)
== END | disposition home or self-care (01) ==
LOC: LABWHC1 15:58
PROVIDERS: ATTEND Internal Medicine Interventional Cardiology
DX: E78.2 Mixed hyperlipidemia (principal)
CPT/HCPCS: 36415; 80053; 80061

== ENCOUNTER → 2024-02-14 | Outpatient (CLI) | payer MEDICARE ==
[2024-02-14 15:24] LABS: T4, Free (Free Thyroxine) 1.31 ng/dL (0.80-1.80)
== END | disposition home or self-care (01) ==
LOC: LABWHC1 10:46
PROVIDERS: ATTEND Internal Medicine Endocrinology, Diabetes & Metabolism
DX: E05.90 Thyrotoxicosis, unspecified without thyrotoxic crisis or storm (principal)
CPT/HCPCS: 36415; 84439; 84443; 84480

== ENCOUNTER 2024-04-14 07:52 | Emergency (ER) | payer MEDICARE ==
[2024-04-14 08:01] VITALS: RESP 18
--- NOTE | 2024-04-14 08:20 | ED ---
General Adult HPI - General Chief complaint: Dental/Oral Stated complaint: mouth sores Time Seen by Provider: 04/14/24 08:02 Source: patient, family, RN notes reviewed Mode of arrival: ambulatory Limitations: no limitations - History of Present Illness Initial comments: Patient is an 83-year-old female presenting to the emergency department with concerns for changes to the coloration of her buccal mucosa. Patient noticed this just this morning. Patient did have lip swelling yesterday and was prescribed steroids and started this yesterday. Patient has no discomfort. Lip swelling has resolved. Patient is unclear if this discoloration is new or old. No other area of involvement. No fatigue. No dyspnea. No rectal bleeding or dark stools. - Related Data Home Medications Medication Instructions Recorded Confirmed Olmesartan/Hydrochlorothiazide 1 tab PO DAILY 09/07/18 01/06/23 [Benicar Hct 20-12.5 mg Tablet] ALPRAZolam [Xanax] 0.25 mg PO TID PRN 11/26/19 01/06/23 Omeprazole [PriLOSEC] 20 mg PO BID-W/MEALS 11/26/19 01/06/23 Multivitamins, Thera [Multivitamin 1 tab PO DAILY 12/04/19 01/06/23 (formulary)] Ezetimibe [Zetia] 10 mg PO DAILY 12/29/22 01/06/23 Lovastatin [Mevacor] 5 mg PO DAILY 12/29/22 01/06/23 methazolAMIDE [Methazolamide] 50 mg PO DAILY 12/29/22 01/06/23 Previous Rx's Medication Instructions Recorded amLODIPine [Norvasc] 5 mg PO HS #30 tab 09/09/18 Allergies Allergy/AdvReac Type Severity Reaction Status Date / Time ibuprofen [From Motrin] Allergy Unknown Verified 04/14/24 07:56 aspirin AdvReac Nausea & Verified 04/14/24 07:56 Vomiting atorvastatin [From Lipitor] AdvReac MUSCLE Verified 04/14/24 07:56 PAIN W/HIGH DOSES Review of Systems ROS Statement: Those systems with pertinent positive or pertinent negative responses have been documented in the HPI. ROS Other: All systems not noted in ROS Statement are negative. Constitutional: Denies: fever Eyes: Denies: eye pain ENT: Reports: as per HPI. Denies: ear pain, throat pain, dental pain, hearing loss, epistaxis, congestion Respiratory: Denies: cough, dyspnea Gastrointestinal: Denies: hematemesis, melena, hematochezia Skin: Reports: as per HPI Past Medical History Past Medical History: GERD/Reflux, Hyperlipidemia, Hypertension, Liver Disease, Thyroid Disorder Additional Past Medical History / Comment(s): cysts on liver. 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 History of Any Multi-Drug Resistant Organisms: None Reported Past Surgical History: Cholecystectomy, Hernia Repair, Hysterectomy, Orthopedic Surgery Additional Past Surgical History / Comment(s): rotator cuff left shoulder, hernia repair-R inguinal and ventral , lypoma removal Past Anesthesia/Blood Transfusion Reactions: No Reported Reaction Past Psychological History: No Psychological Hx Reported Smoking Status: Former smoker Past Alcohol Use History: None Reported Past Drug Use History: None Reported - Past Family History Mother Family Medical History: No Reported History General Exam Limitations: no limitations General appearance: alert, in no apparent distress Head exam: Present: atraumatic Eye exam: Present: normal appearance ENT exam: Present: other (Bilateral buccal mucosa with dark pigmentation bilaterally approximately 1 x 3 cm. No swelling. No tenderness.) Neck exam: Present: normal inspection Respiratory exam: Present: normal lung sounds bilaterally Cardiovascular Exam: Present: regular rate, normal rhythm GI/Abdominal exam: Present: soft. Absent: tenderness Extremities exam: Present: normal inspection Neurological exam: Present: alert Psychiatric exam: Present: normal affect, normal mood Skin exam: Present: normal color Course Vital Signs 04/14/24 07:56 Temperature 98.4 F Pulse Rate 79 Respiratory 18 Rate Blood Pressure 155/88 O2 Sat by Pulse 100 Oximetry Medical Decision Making - Medical Decision Making Was pt. sent in by a medical professional or institution (, PA, TENSION WORKER, urgent care, hospital, or long term...) When possible be specific @ -No Did you speak to anyone other than the patient for history (EMS, parent, family, police, friend...)? What history was obtained from this source @ -Family is present helps provide history including patient's medications Did you review nursing and triage notes (agree or disagree)? Why? @ -I reviewed and agree with nursing and triage notes Were old charts reviewed (outside hosp., previous admission, EMS record, old EKG, old radiological studies, urgent care reports/EKG's, long term records)? Report findings @ -No old charts were reviewed Differential Diagnosis (chest pain, altered mental status, abdominal pain women, abdominal pain men, vaginal bleeding, weakness, fever, dyspnea, syncope, headache, dizziness, GI bleed, back pain, seizure, CVA, palpatations, mental health, musculoskeletal)? @ -Not applicable EKG interpreted by me (3pts min.). @ -As above X-rays interpreted by me (1pt min.). @ -None done CT interpreted by me (1pt min.). @ -None done U/S interpreted by me (1pt. min.). @ -None done What testing was considered but not performed or refused? (CT, X-rays, U/S, labs)? Why? @ -None What meds were considered but not given or refused? Why? @ -None Did you discuss the management of the patient with other professionals (daysi martinez i.e. , PA, TENSION WORKER, lab, RT, psych nurse, social service worker, sales audit clerk, teacher, strategic debriefing officer, corrections caseworker)? Give summary @ -No Was smoking cessation discussed for >3mins.? @ -No Was critical care preformed (if so, how long)? @ -No Were there social determinants of health that impacted care today? How? (Homelessness, low income, unemployed, alcoholism, drug addiction, transportation, low edu. Level, literacy, decrease access to med. care, nursing home, rehab)? @ -No Was there de-escalation of care discussed even if they declined (Discuss DNR or withdrawal of care, Hospice)? DNR status @ -No What co-morbidities impacted this encounter? (DM, HTN, Smoking, COPD, CAD, Cancer, CVA, ARF, Chemo, Hep., AIDS, mental health diagnosis, sleep apnea, morbid obesity)? @ -None Was patient admitted / discharged? Hospital course, mention meds given and route, prescriptions, significant lab abnormalities, going to OR and other pertinent info. @ -Patient presents with concerns for discoloration of bilateral buccal mucosa. Patient noticed this yesterday. Evaluation otherwise is unremarkable. It is unclear if this may be a chronic condition. Patient will be discharged and recommended follow-up with her primary care physician, dentist and ENT number provided. Patient and family are updated. Undiagnosed new problem with uncertain prognosis? @ -No Drug Therapy requiring intensive monitoring for toxicity (Heparin, Nitro, Insulin, Cardizem)? @ -No Were any procedures done? @ -No Diagnosis/symptom? @ -Buccal mucosa discoloration Acute, or Chronic, or Acute on Chronic? @ -Acute Uncomplicated (without systemic symptoms) or Complicated (systemic symptoms)? @ -Default Side effects of treatment? @ -No Exacerbation, Progression, or Severe Exacerbation? @ -No Poses a threat to life or bodily function? How? (Chest pain, [place], [place], pneumonia, PE, COPD, DKA, ARF, appy, cholecystitis, CVA, Diverticulitis, Homicidal, Suicidal, threat to staff... and all critical care pts) @ -No - Lab Data Result diagrams: 04/14/24 08:22 04/14/24 08:22 Lab Results 04/14/24 04/14/24 04/14/24 Range/Units 08:22 08:22 08:22 WBC 5.0 (3.8-10.6) k/uL RBC 4.53 (3.80-5.40) m/uL Hgb 12.7 (11.4-16.0) gm/dL Hct 39.0 (34.0-46.0) % MCV 86.1 (80.0-100.0) fL MCH 28.0 (25.0-35.0) pg MCHC 32.5 (31.0-37.0) g/dL RDW 13.4 (11.5-15.5) % Plt Count 181 (150-450) k/uL MPV 8.2 Neutrophils % 75 % Lymphocytes % 19 % Monocytes % 4 % Eosinophils % 1 % Basophils % 0 % Neutrophils # 3.8 (1.3-7.7) k/uL Lymphocytes # 1.0 (1.0-4.8) k/uL Monocytes # 0.2 (0-1.0) k/uL Eosinophils # 0.1 (0-0.7) k/uL Basophils # 0.0 (0-0.2) k/uL Hypochromasia Slight PT 10.4 (10.0-12.5) sec INR 0.9 (<1.2) APTT 22.1 (22.0-30.0) sec Sodium 137 (137-145) mmol/L Potassium 4.1 (3.5-5.1) mmol/L Chloride 103 (98-107) mmol/L Carbon Dioxide 28 (22-30) mmol/L Anion Gap 6 mmol/L BUN 20 H (7-17) mg/dL Creatinine 0.99 (0.52-1.04) mg/dL Est GFR (CKD-EPI)AfAm 62 (>60 ml/min/1.73 sqM) Est GFR (CKD-EPI)NonAf 54 (>60 ml/min/1.73 sqM) Glucose 116 H (74-99) mg/dL Calcium 10.3 H (8.4-10.2) mg/dL Total Bilirubin 0.6 (0.2-1.3) mg/dL AST 24 (14-36) U/L ALT 14 (4-34) U/L Alkaline Phosphatase 90 (38-126) U/L Total Protein 7.4 (6.3-8.2) g/dL Albumin 4.3 (3.5-5.0) g/dL Disposition Clinical Impression: Discoloration of skin Disposition: HOME SELF-CARE Condition: Stable Additional Instructions: Please do follow-up with your primary care physician and dentist for further evaluation. Also follow-up with ENT and, number provided. Return for pain, swelling, fever, worsening or changing symptoms or any other concerns. Is patient prescribed a controlled substance at d/c from ED?: No Referrals: [place] DO [Primary Care Provider] - 1-2 days Farooq Ni MD [STAFF PHYSICIAN] - 1-2 days Time of Disposition: 09:02
[2024-04-14 08:30] LABS: Basophils % (A) 0 %; Eosinophils # (A) 0.1 k/uL (0-0.7); Eosinophils % (A) 1 %; HGB 12.7 gm/dL (11.4-16.0); Hypochromasia Slight; Lymphocytes % (A) 19 %; MCHC 32.5 g/dL (31.0-37.0); MCV 86.1 fL (80.0-100.0); Mean Platelet Volume 8.2; Monocytes # (A) 0.2 k/uL (0-1.0); Monocytes % (A) 4 %; Neutrophils # (A) 3.8 k/uL (1.3-7.7); Neutrophils % (A) 75 %; Platelet Count 181 k/uL (150-450); RBC 4.53 m/uL (3.80-5.40); RDW 13.4 % (11.5-15.5)
[2024-04-14 08:41] LABS: ALT 14 U/L (4-34); AST 24 U/L (14-36); African American GFR (CKD) 62 (>60 ml/min/1.73 sqM); Albumin 4.3 g/dL (3.5-5.0); Alkaline Phosphatase 90 U/L (38-126); Anion Gap 6 mmol/L; Blood Urea Nitrogen 20 mg/dL (7-17); Calcium 10.3 mg/dL (8.4-10.2); Carbon Dioxide 28 mmol/L (22-30); Chloride 103 mmol/L (98-107); Glucose 116 mg/dL (74-99); Non-African American GFR(CKD) 54 (>60 ml/min/1.73 sqM); Potassium 4.1 mmol/L (3.5-5.1); Sodium 137 mmol/L (137-145); Total Bilirubin 0.6 mg/dL (0.2-1.3); Total Protein 7.4 g/dL (6.3-8.2)
[2024-04-14 08:42] LABS: INR 0.9 (<1.2); Partial Thromboplastin Time 22.1 sec (22.0-30.0); Prothrombin Time 10.4 sec (10.0-12.5)
[2024-04-14 09:06] VITALS: BP 147/86; PULSE 77; TEMP 98.1
== END 2024-04-14 09:05 | disposition home or self-care (01) ==
LOC: EC 07:52
DX: L81.9 Disorder of pigmentation, unspecified (principal); Z87.891 Personal history of nicotine dependence; Z88.6 Allergy status to analgesic agent; Z88.8 Allergy status to other drugs, medicaments and biological substances
CPT/HCPCS: 36415; 80053; 85025; 85610; 85730; 99282

== ENCOUNTER → 2024-04-16 | Outpatient (CLI) | payer MEDICARE ==
[2024-04-16 19:17] LABS: T4, Free (Free Thyroxine) 1.45 ng/dL (0.80-1.80)
== END | disposition home or self-care (01) ==
LOC: LABWHC1 12:18
PROVIDERS: ATTEND Family Medicine
DX: E05.90 Thyrotoxicosis, unspecified without thyrotoxic crisis or storm (principal)
CPT/HCPCS: 36415; 84439; 84443

== ENCOUNTER → 2024-08-28 | Outpatient (CLI) | payer MEDICARE ==
[2024-08-28 15:15] LABS: HCT 38.8 % (37.2-46.3); MCHC 30.9 g/dL (32.0-37.0); MCV 87.2 FL (80.0-97.0); Mean Platelet Volume 11.3 FL (9.5-12.2); NRBC Per 100 WBC 0 X 10*3/uL (0.00-0.01); Platelet Count 179 X 10*3/uL (140-440); RBC 4.45 X 10*6/uL (4.10-5.20); RDW 13.3 % (11.5-14.5); WBC 3.49 X 10*3/uL (4.50-10.00)
[2024-08-28 15:33] LABS: ALT 15 U/L (8-44); AST 24 U/L (13-35); Albumin 4.1 g/dL (3.8-4.9); Albumin/Globulin Ratio 1.58 Ratio (1.60-3.17); Alkaline Phosphatase 86 U/L (41-126); Blood Urea Nitrogen 18.4 mg/dL (9.0-27.0); Calcium 9.8 mg/dL (8.7-10.3); Carbon Dioxide 28.4 mmol/L (21.6-31.8); Chloride 106 mmol/L (96-109); Globulin 2.6 g/dL (1.6-3.3); Glucose 82 mg/dL (70-110); Potassium 3.9 mmol/L (3.5-5.5); Sodium 143 mmol/L (135-145); T4, Free (Free Thyroxine) 1.52 ng/dL (0.80-1.80); Total Bilirubin 0.6 mg/dL (0.3-1.2); Total Protein 6.7 g/dL (6.2-8.2)
== END | disposition home or self-care (01) ==
LOC: LABWHC1 11:15
PROVIDERS: ATTEND Family Medicine
DX: I10 Essential (primary) hypertension (principal); E78.00 Pure hypercholesterolemia, unspecified; E05.90 Thyrotoxicosis, unspecified without thyrotoxic crisis or storm
CPT/HCPCS: 36415; 80053; 82306; 83036; 84439; 84443; 85027

== ENCOUNTER → 2024-10-03 | Outpatient (CLI) | payer MEDICARE ==
--- NOTE | 2024-10-03 14:52 | US ---
EXAMINATION TYPE: US thyroid st tissue head/neck DATE OF EXAM: 10/03/2024 COMPARISON: 12/01/2023 CLINICAL INDICATION: Female, 84 years old with history of E04.2 NONTOXIC MULTINODULAR GOITER; Follow up nodules. TECHNIQUE: Grayscale and color Doppler imaging of the thyroid gland. FINDINGS: GLAND SIZE: Right Lobe: 4.5 x 2.7 x 2.6 cm Overall Parenchyma: homogeneous Left Lobe: 5.3 x 2.9 x 2.7 cm Overall Parenchyma: homogeneous Isthmus Thickness: 0.5 cm NODULES- Multiple nodules seen bilaterally with largest measured RIGHT: # of nodules measured on right: 3 1. 2.1 X 1.8 x 1.7 cm, upper mid, mixed cystic and solid, isoechoic TR 3 nodule, which is wider norman n tall, with smooth margins, without echogenic foci. Prior size: 2.3 x 1.7 x 1.5 cm 2. 1.4 X 1.2 x 1.6 cm, lower mid, mixed cystic and solid, hypoechoic TR 4 nodule, which is taller t cifuentes wide, with smooth margins, without echogenic foci. Prior size: 1.7 x 1.9 x 1.7 cm 3. 1.5 X 1.2 x 1.8 cm, lower lateral, solid or almost completely solid, isoechoic TR 3 nodule, whic h is taller than wide, with smooth margins, without echogenic foci. Prior size: No prior LEFT: # of nodules measured on left: 3 1. 2.2 X 1.9 x 1.7 cm, mid mid, mixed cystic and solid, isoechoic TR 3 nodule, which is wider than tall, with smooth margins, without echogenic foci. Prior size: no prior 2. 2.3 X 2.0 x 1.4 cm, lower mid, solid or almost completely solid, hypoechoic TR 4 nodule, which is wider than tall, with smooth margins, without echogenic foci. Prior size: 2.1 x 2.1 x 1.8 cm 3. 2.1 X 1.8 x 1.6 cm, mid medial, mixed cystic and solid, isoechoic TR 3 nodule, which is wider th an tall, with smooth margins, without echogenic foci. Prior size: 2.2 x 2.1 x 2.3 cm ISTHMUS: # of nodules measured in the isthmus: 0 Bilateral neck scanned, no evidence of lymphadenopathy. IMPRESSION: 1. Multinodular goiter redemonstrated. The three dominant nodules on each side are measured. 2. A 1.8 cm TR3 nodule at the right lower pole was not clearly seen previously. Attention on follow-u p. 3. A 2.2 cm TR3 nodule at the left midpole not well seen previously. Attention on follow-up. 4. A 2.3 cm TR4 nodule at the left mid to lower pole is stable to minimally larger at 2.3 cm versus 2 .1 cm, previously. FNA can be considered if not already performed. 5. Additional TR3 and TR4 nodules as outlined above are either stable or slightly smaller. TR3: If nodule size is ? 2.5 cm, FNA is recommended. If nodule size is ? 1.5 cm, follow-up imaging at 1, 3, and 5 years is recommended. TR4: If nodule size is ? 1.5 cm, FNA is recommended. If nodule size is ? 1.0 cm, follow-up imaging at 1, 2, 3, and 5 years is recommended. [facility], , 10/03/2024 2:50 PM
== END | disposition home or self-care (01) ==
LOC: RADUSWWP 13:40
PROVIDERS: ATTEND Family Medicine
DX: E04.2 Nontoxic multinodular goiter (principal)
CPT/HCPCS: 76536

== ENCOUNTER → 2024-10-17 | Outpatient (CLI) | payer MEDICARE ==
[2024-10-17 19:37] LABS: T4, Free (Free Thyroxine) 1.45 ng/dL (0.80-1.80)
== END | disposition home or self-care (01) ==
LOC: LABWHC1 14:02
PROVIDERS: ATTEND Internal Medicine Endocrinology, Diabetes & Metabolism
DX: E05.90 Thyrotoxicosis, unspecified without thyrotoxic crisis or storm (principal)
CPT/HCPCS: 36415; 84439; 84443; 84480